=== PATIENT | male | born 1985 | race Caucasian/White ===

== ENCOUNTER 2019-08-02 07:45 | Inpatient (IN) | payer SELFPAY ==
[~2019-08-02] VITALS: Ht 182.9 cm; Wt 67.3 kg
[2019-08-02] VITALS (12 sets, daily range): BP systolic 84–127; BP diastolic 47–68
[~2019-08-02 07:45] MED LIST: INSU100C4 SQ; INSU100I13 SQ; INSU100I17 SQ; INSU100V13 SQ
[2019-08-02] MEDS ORDERED: IV NORMAL SALINE 1000ML BAG 1,000 ML IV SCH (07:51)
--- NOTE | 2019-08-02 07:56 | PHYS DOC ---
Past Medical History Past Medical History: Diabetes-Type I Past Surgical History: No Surgical History Smoking Status: Never Smoker Alcohol Use: Occasionally Drug Use: Marijuana Adult General Chief Complaint Chief Complaint: hyperglycemia HPI HPI Patient is a 34 year old male who presents via EMS with report of some mental status change and elevated blood sugar. Patient indicates that his last insulin dose was 2 days ago. Patient states that he has not taken his insulin because he has not been eating. Patient also used methamphetamine 2 days ago. Patient denies any abdominal pain, nausea or vomiting. Patient's only complaint is that his blood sugar is high.[] Review of Systems Review of Systems Constitutional: Denies fever or chills [] Respiratory: Denies cough or shortness of breath [] Cardiovascular: No additional information not addressed in HPI [] GI: Denies abdominal pain, nausea, vomiting, bloody stools or diarrhea [] Integument: Denies rash or skin lesions [] Neurologic: Denies headache, focal weakness or sensory changes [] Endocrine: Complains of polyuria and polydipsia [] All other systems were reviewed and found to be within normal limits, except as documented in this note. Current Medications Current Medications Current Medications Medications (Trade) Dose Ordered Sig/[place] Start Time Stop Time Status Last Admin Dose Admin Insulin Human Regular 100 ml @ 0 mls/hr 1X ONCE 08/02/19 08:00 08/02/19 08:01 DC 08/02/19 08:00 10.8 MLS/HR Insulin Human Regular (HumuLIN R VIAL) 15 unit 1X ONCE 08/02/19 08:00 08/02/19 08:01 DC 08/02/19 08:25 15 UNIT Sodium Chloride 1,000 ml @ 1,000 mls/hr Q1H 08/02/19 07:51 08/02/19 08:50 08/02/19 07:50 1,000 MLS/HR Allergies Allergies Allergies Coded Allergies Type Severity Reaction Last Updated Verified Sulfa (Sulfonamide Antibiotics) Allergy Intermediate Hives 10/24/15 Yes Physical Exam Physical Exam Constitutional: Well developed, well nourished, no acute distress, non-toxic appearance. [] HENT: Normocephalic, atraumatic, bilateral external ears normal, oropharynx moist, no oral exudates, nose normal. [] Eyes: PERRLA, EOMI, conjunctiva normal, no discharge. [] Neck: Normal range of motion, no tenderness, supple, no stridor. [] Cardiovascular: Tachycardic rate with regular rhythm[] Lungs & Thorax: Bilateral breath sounds clear to auscultation [] Abdomen: Bowel sounds normal, soft, no tenderness. [] Skin: Warm, dry, no erythema, no rash. [] Extremities: No tenderness, no cyanosis, no clubbing, ROM intact, no edema. [] Neurologic: Alert and oriented X 3, no focal deficits noted. [] Current Patient Data Lab Values Laboratory Tests Test 08/02/19 08:00 08/02/19 08:24 White Blood Count 37.1 x10^3/uL (4.0-11.0) H Red Blood Count 5.00 x10^6/uL (4.30-5.70) Hemoglobin 14.4 g/dL (13.0-17.5) Hematocrit 46.6 % (39.0-53.0) Mean Corpuscular Volume 93 fL (79-100) Mean Corpuscular Hemoglobin 29 pg (25-35) Mean Corpuscular Hemoglobin Concent 31 g/dL (31-37) Red Cell Distribution Width 13.1 % (11.5-14.5) Platelet Count 319 x10^3/uL (140-400) Neutrophils (%) (Auto) 77 % (31-73) H Lymphocytes (%) (Auto) 14 % (24-48) L Monocytes (%) (Auto) 8 % (0-9) Eosinophils (%) (Auto) 0 % (0-3) Basophils (%) (Auto) 1 % (0-3) Neutrophils # (Auto) 28.6 x10^3/uL (1.8-7.7) H Lymphocytes # (Auto) 5.1 x10^3/uL (1.0-4.8) H Monocytes # (Auto) 2.8 x10^3/uL (0.0-1.1) H Eosinophils # (Auto) 0.1 x10^3/uL (0.0-0.7) Basophils # (Auto) 0.3 x10^3/uL (0.0-0.2) H Platelet Estimate Pending Urine Collection Type Unknown Urine Color Yellow Urine Clarity Clear Urine pH 5.0 (<5.0-8.0) Urine Specific [place] 1.020 (1.000-1.030) Urine Protein 30 mg/dL (NEG-TRACE) Urine Glucose (UA) >=1000 mg/dL (NEG) Urine Ketones (Stick) >=80 mg/dL (NEG) Urine Blood Large (NEG) Urine Nitrite Negative (NEG) Urine Bilirubin Negative (NEG) Urine Urobilinogen Dipstick 0.2 mg/dL (0.2 mg/dL) Urine Leukocyte Esterase Negative (NEG) Urine RBC 3-5 /HPF (0-2) Urine WBC Occ /HPF (0-4) Urine Squamous Epithelial Cells Occ /LPF Urine Bacteria 0 /HPF (0-FEW) Sodium Level 125 mmol/L (136-145) L Potassium Level 5.9 mmol/L (3.5-5.1) H Chloride Level 90 mmol/L (98-107) L Carbon Dioxide Level < 5 mmol/L (21-32) *L Anion Gap 30 (6-14) H Blood Urea Nitrogen 46 mg/dL (8-26) H Creatinine 1.6 mg/dL (0.7-1.3) H Estimated GFR (Cockcroft-Gault) 49.2 BUN/Creatinine Ratio 29 (6-20) H Glucose Level 723 mg/dL (70-99) *H Calcium Level 8.6 mg/dL (8.5-10.1) Total Bilirubin 0.4 mg/dL (0.2-1.0) Aspartate Amino Transferase (AST) 23 U/L (15-37) Alanine Aminotransferase (ALT) 25 U/L (16-63) Alkaline Phosphatase 203 U/L (46-116) H Total Protein 6.5 g/dL (6.4-8.2) Albumin 2.9 g/dL (3.4-5.0) L Albumin/Globulin Ratio 0.8 (1.0-1.7) L Urine Opiates Screen Neg (NEG) Urine Methadone Screen Neg (NEG) Urine Barbiturates Neg (NEG) Urine Phencyclidine Screen Neg (NEG) Urine Amphetamine/Methamphetamine Pos (NEG) Urine Benzodiazepines Screen Neg (NEG) Urine Cocaine Screen Neg (NEG) Urine Cannabinoids Screen Neg (NEG) Urine Ethyl Alcohol Neg (NEG) Acetone Level Mod pos (NEG) O2 Saturation 98 % (92-99) Arterial Blood pH 6.77 (7.35-7.45) *L Arterial Blood pCO2 at Patient Temp < 15 mmHg (35-46) *L Arterial Blood pO2 at Patient Temp 167 mmHg (85-108) H Arterial Blood HCO3 1 mmol/L (21-28) L Arterial Blood Base Excess -33 mmol/L (-3-3) L FiO2 21 Laboratory Tests 08/02/19 08:00 Laboratory Tests 08/02/19 08:00 EKG EKG EKG demonstrates normal sinus rhythm with rate of 84.[] Radiology/Procedures Radiology/Procedures [] Course & Med Decision Making Course & Med Decision Making Pertinent Labs and Imaging studies reviewed. (See chart for details) [] Dragon Disclaimer Dragon Disclaimer This electronic medical record was generated, in whole or in part, using a voice recognition dictation system. Departure Departure Impression: Primary Impression: DKA (diabetic ketoacidoses) Additional Impressions: Hypothermia Methamphetamine abuse Disposition: ADMITTED INPATIENT Admitting Physician: DAMION Condition: GUARDED Referrals: NO PCP (PCP) Problem Qualifiers Primary Impression: DKA (diabetic ketoacidoses) Diabetes mellitus type: type 1 Diabetes mellitus complication detail: without coma Qualified Codes: E10.10 - Type 1 diabetes mellitus with ketoacidosis without coma Additional Impressions: Hypothermia Encounter type: initial encounter Qualified Codes: T68.XXXA - Hypothermia, initial encounter NARESH STEWART Jr. DO Aug 02, 2019 07:56
[2019-08-02] MEDS ORDERED: INSULIN,REGULAR 100 UNIT DRIP 100 ML IV ONE (08:00)
[2019-08-02] MEDS ORDERED: INSULIN REGULAR 100 UNIT/ML 3ML VIAL. IV ONE (08:00)
[2019-08-02 08:11] LABS: BILIRUBIN,URINE NEGATIVE (NEG); CLARITY,URINE CLEAR; COLOR,URINE YELLOW; NITRITE,URINE NEGATIVE (NEG); PROTEIN,URINE 30 mg/dL (NEG-TRACE); UROBILINOGEN,URINE 0.2 mg/dL (0.2 mg/dL)
[2019-08-02 08:12] LABS: BASO # 0.3 x10^3/uL (0.0-0.2); BASO % 1 % (0-3); EOS # 0.1 x10^3/uL (0.0-0.7); EOS % 0 % (0-3); HEMATOCRIT 46.6 % (39.0-53.0); HEMOGLOBIN 14.4 g/dL (13.0-17.5); LYMPH # 5.1 x10^3/uL (1.0-4.8); LYMPH % 14 % (24-48); MEAN CORPUSCULAR HEMOGLOBIN 29 pg (25-35); MEAN CORPUSCULAR HGB CONC 31 g/dL (31-37); MEAN CORPUSCULAR VOLUME 93 fL (79-100); MONO # 2.8 x10^3/uL (0.0-1.1); MONO % 8 % (0-9); NEUT # 28.6 x10^3/uL (1.8-7.7); NEUT % 77 % (31-73); PLATELET COUNT 319 x10^3/uL (140-400); RED CELL DISTRIBUTION WIDTH 13.1 % (11.5-14.5); WHITE BLOOD COUNT 37.1 x10^3/uL (4.0-11.0)
[2019-08-02 08:26] LABS: BASE EXCESS ABG -33 mmol/L (-3-3); HCO3 ABG 1 mmol/L (21-28); PO2 ABG 167 mmHg (85-108); SAT O2 ABG 98 % (92-99)
[2019-08-02 08:27] LABS: BARBITURATES NEG (NEG); BENZODIAZEPINES NEG (NEG); CANNABINOIDS NEG (NEG); COCAINE NEG (NEG); METHADONE NEG (NEG); OPIATES NEG (NEG); PHENCYCLIDINE NEG (NEG)
[2019-08-02 08:28] LABS: FIO2 ABG 21; PCO2 ABG < 15 mmHg (35-46)
[2019-08-02 08:28] LABS: AMPHETAMINE/METHAMPHETAMINE POS (NEG)
[2019-08-02 08:29] LABS: ALBUMIN 2.9 g/dL (3.4-5.0); ALBUMIN/GLOBULIN RATIO 0.8 (1.0-1.7); ALK PHOS 203 U/L (46-116); ALT (SGPT) 25 U/L (16-63); AST (SGOT) 23 U/L (15-37); BLOOD UREA NITROGEN 46 mg/dL (8-26); BUN/CREATININE RATIO 29 (6-20); CALCIUM 8.6 mg/dL (8.5-10.1); CHLORIDE 90 mmol/L (98-107); CREATININE 1.6 mg/dL (0.7-1.3); GFR 49.2; POTASSIUM 5.9 mmol/L (3.5-5.1); SODIUM 125 mmol/L (136-145); TOTAL BILIRUBIN 0.4 mg/dL (0.2-1.0); TOTAL PROTEIN 6.5 g/dL (6.4-8.2)
[2019-08-02 08:30] LABS: BACTERIA,URINE 0 /HPF (0-FEW); SQUAMOUS EPITHELIAL CELL,UR OCC /LPF; WBC,URINE OCC /HPF (0-4)
--- NOTE | 2019-08-02 08:31 | EKG ---
[facility] [address] [place] [address] Test Date: 2019-08-02 Test Time: 08:15:46 Pat Name: CHIKI GIBSON Department: Room: Gender: M Forging Machine Operator: : [id number] Requested By: NARESH STEWART Order Number: [id number] Reading MD: Measurements Intervals [place] Rate: 84 P: 90 LA: 200 QRS: 64 QRSD: 242 T: -18 QT: 398 QTc: 474 Interpretive Statements SINUS RHYTHM COMPLEX(ES) WITH ABERRANT INTRAVENTRICULAR CONDUCTION NON SPECIFIC INTRAVENTRICULAR BLOCK QRS(T) CONTOUR ABNORMALITY CONSIDER ANTEROLATERAL MYOCARDIAL DAMAGE CONSISTENT WITH INFERIOR INFARCT AGE UNDETERMINED ABNORMAL ECG RI6.01 No previous ECG available for comparison
[2019-08-02 08:33] LABS: ANION GAP 30 (6-14)
[2019-08-02 08:38] LABS: CARBON DIOXIDE < 5 mmol/L (21-32); GLUCOSE 723 mg/dL (70-99)
[2019-08-02] MEDS ORDERED: IV NORMAL SALINE 1000ML BAG 1,000 ML IV ONE (09:00)
[2019-08-02] MEDS ORDERED: IV DEXTROSE 5% 250 ML BAG. IV PRN (09:00)
[2019-08-02] MEDS ORDERED: INSULIN REGULAR VIAL 100 UNIT in IV NORMAL SALINE 100ML 100 ML IV PRN (09:00)
[2019-08-02] MEDS ORDERED: DEXTROSE 50% 25 GM / 50ML DISP.SYRIN. IV PRN (09:00)
--- NOTE | 2019-08-02 09:01 | PDOC1 ---
History and Physical Date of Admission Date of Admission DATE: 08/02/19 TIME: 08:54 Identification/Chief Complaint Chief Complaint Confusion Source Source: Patient History of Present Illness History of Present Illness Mr Camacho is a 34yo M w/ PMHx DM1 who presents to ED confused, has not taken insulin for 2 days and has been abusing methamphetamine. Found with glucose 723, BUN 46, Cr 1.6, K 5.9, Na 125, WBC 37.1. ABG pH 6.77, PCO2 15, PO2 167. Body temperature per EMS was 89F. Was placed on air warmer blanket. RR 30 /min. His roommate notes he does not check his blood glucose at home, does have supplies. Does take lantus and has lantus and lispo insulin pens at home. He notes this is only the second time he has been hospitalized for DKA. EKG demonstrates normal sinus rhythm with rate of 84. UDS positive for amphetamines and ketones. Admitted to ICU on insulin GTT Past Medical History Cardiovascular: No pertinent hx Pulmonary: No pertinent hx Musculoskeletal: low back pain Renal/: No pertinent hx Endocrine: Diabetes Past Surgical History Past Surgical History: No pertinent history Family History Family History: No Significant, Hypertension, Family History Unknown Social History Smoke: <1 pack per day ALCOHOL: occassional Drugs: Marijuana, Crystal meth Current Problem List Problem List Problems Medical Problems: (1) DKA (diabetic ketoacidoses) Status: Acute (2) Hypothermia Status: Acute (3) Methamphetamine abuse Status: Acute Current Medications Current Medications Current Medications Sodium Chloride 1,000 ml @ 1,000 mls/hr Q1H IV Last administered on 08/02/19at 07:50; Start 08/02/19 at 07:51; Stop 08/02/19 at 08:50; Status DC Insulin Human Regular (HumuLIN R VIAL) 15 unit 1X ONCE IV Last administered on 08/02/19at 08:25; Start 08/02/19 at 08:00; Stop 08/02/19 at 08:01; Status DC Insulin Human Regular 100 ml @ 0 mls/hr 1X ONCE IV Last administered on 08/02/19at 08:00; Start 08/02/19 at 08:00; Stop 08/02/19 at 08:01; Status DC Sodium Chloride 1,000 ml @ 1,000 mls/hr 1X ONCE IV ; Start 08/02/19 at 09:00; Stop 08/02/19 at 09:59 Active Scripts Active Reported Levemir (Insulin Detemir) 100 Unit/1 Ml Vial 20 Unit SQ BID Novolog (Insulin Aspart) 100 Unit/1 Ml Cartridge 100 Unit SQ TIDAC Allergies Allergies: Coded Allergies: Sulfa (Sulfonamide Antibiotics) (Verified Allergy, Intermediate, Hives, 10/24/15) ROS General: YES: Fatigue, Malaise; No: Chills, Night Sweats, Appetite, Other PSYCHOLOGICAL ROS: YES: Disorientation; No: Anxiety, Behavioral Disorder, Concentration difficultie, Decreased libido, Depression, Hallucinations, Hostility, Irritablity, Memory difficulties, Mood Swings, Obsessive thoughts, Physical abuse, Sexual abuse, Sleep disturbances, Suicidal ideation, Other Eyes: Yes Blurry vision, Yes Decreased vision; No Double vision, No Dry eyes, No Excessive tearing, No Eye Pain, No Itchy Eyes, No Loss of vision, No Photophobia, No Scotomata, No Uses contacts, No Uses glasses, No Other HEENT: No: Heacaches, Visual Changes, Hearing change, Nasal congestion, Nasal discharge, Oral lesions, Sinus pain, Sore Throat, Epistaxis, Sneezing, Snoring, Tinnitus, Vertigo, Vocal changes, Other ALLERGY AND IMMUNOLOGY: No: Hives, Insect Bite Sensitivity, Itchy/Watery Eyes, Nasal Congestion, Post Nasal Drip, Seasonal Allergies, Other Hematological and Lymphatic: No: Bleeding Problems, Blood Clots, Blood Transfusions, Brusing, Night Sweats, Pallor, Swollen Lymph Nodes, Other ENDOCRINE: No: Breast Changes, Galactorrhea, Hair Pattern Changes, Hot Flashes, Malaise/lethargy, Mood Swings, Palpitations, Polydipsia/polyuria, Skin Changes, Temperature Intolerance, Unexpected Weight Changes, Other Breast: No New/Changing Breast Lumps, No Nipple changes, No Nipple discharge, No Other Respiratory: No: Cough, Hemoptysis, Orthopnea, Pleuritic Pain, Shortness of breath, SOB with excertion, Sputum Changes, Stridor, Tachypnea, Wheezing, Other Cardiovascular: No Chest Pain, No Palpitations, No Orthopnea, No Paroxysmal Noc. Dyspnea, No Edema, No Lt Headedness, No Other Gastrointestinal: Yes Nausea; No Vomiting, No Abdominal Pain, No Diarrhea, No Constipation, No Melena, No Hematochezia, No Other Genitourinary: YES Frequency; No Dysuria, No Incontinence, No Hematuria, No Retention, No Discharge, No Urgency, No Pain, No Flank Pain, No Other, No , No , No , No , No , No , No Musculoskeletal: Yes Muscular Weakness; No Gait Disturbance, No Joint Pain, No Joint Stiffness, No Joint Swelling, No Muscle Pain, No Pain In:, No Swelling In:, No Other Neurological: Yes Confusion, Yes Gait Disturbance; No Behavorial Changes, No Bowel/Bladder ControlChng, No Dizziness, No Headaches, No Impaired Coord/balance, No Memory Loss, No Numbness/Tingling, No Seizures, No Speech Problems, No Tremors, No Visual Changes, No Weakness, No Other Skin: No Dry Skin, No Eczema, No Hair Changes, No Lumps, No Mole Changes, No Mottling, No Nail Changes, No Pruritus, No Rash, No Skin Lesion Changes, No Other, No Acne Physical Exam General: Alert, Cooperative, moderate distress HEENT: Atraumatic, PERRLA, EOMI, Mucous membr. moist/pink, Other (Extremely poor dentition, multiple dental caries) Lungs: Clear to auscultation, Normal air movement Heart: S1S2, RRR, no thrills, no rubs, no gallops, no murmurs Abdomen: Normal bowel sounds, Soft, No tenderness, No hepatosplenomegaly, No masses Rectal Exam: not examined Extremities: No clubbing, No cyanosis, No edema, Normal pulses, No tendernes s/swelling Skin: No rashes, No breakdown, No significant lesion Neuro: Strength at 5/5 X4 ext, Normal tone, Sensation intact, Cranial nerves 3- 12 NL, Reflexes 2+ Psych/Mental Status: Other (Confused) Labs Labs Laboratory Tests Test 08/02/19 08:00 08/02/19 08:24 White Blood Count 37.1 x10^3/uL (4.0-11.0) Red Blood Count 5.00 x10^6/uL (4.30-5.70) Hemoglobin 14.4 g/dL (13.0-17.5) Hematocrit 46.6 % (39.0-53.0) Mean Corpuscular Volume 93 fL (79-100) Mean Corpuscular Hemoglobin 29 pg (25-35) Mean Corpuscular Hemoglobin Concent 31 g/dL (31-37) Red Cell Distribution Width 13.1 % (11.5-14.5) Platelet Count 319 x10^3/uL (140-400) Neutrophils (%) (Auto) 77 % (31-73) Lymphocytes (%) (Auto) 14 % (24-48) Monocytes (%) (Auto) 8 % (0-9) Eosinophils (%) (Auto) 0 % (0-3) Basophils (%) (Auto) 1 % (0-3) Neutrophils # (Auto) 28.6 x10^3/uL (1.8-7.7) Lymphocytes # (Auto) 5.1 x10^3/uL (1.0-4.8) Monocytes # (Auto) 2.8 x10^3/uL (0.0-1.1) Eosinophils # (Auto) 0.1 x10^3/uL (0.0-0.7) Basophils # (Auto) 0.3 x10^3/uL (0.0-0.2) Urine Collection Type Unknown Urine Color Yellow Urine Clarity Clear Urine pH 5.0 (<5.0-8.0) Urine Specific [place] 1.020 (1.000-1.030) Urine Protein 30 mg/dL (NEG-TRACE) Urine Glucose (UA) >=1000 mg/dL (NEG) Urine Ketones (Stick) >=80 mg/dL (NEG) Urine Blood Large (NEG) Urine Nitrite Negative (NEG) Urine Bilirubin Negative (NEG) Urine Urobilinogen Dipstick 0.2 mg/dL (0.2 mg/dL) Urine Leukocyte Esterase Negative (NEG) Urine RBC 3-5 /HPF (0-2) Urine WBC Occ /HPF (0-4) Urine Squamous Epithelial Cells Occ /LPF Urine Bacteria 0 /HPF (0-FEW) Sodium Level 125 mmol/L (136-145) Potassium Level 5.9 mmol/L (3.5-5.1) Chloride Level 90 mmol/L (98-107) Carbon Dioxide Level < 5 mmol/L (21-32) Anion Gap 30 (6-14) Blood Urea Nitrogen 46 mg/dL (8-26) Creatinine 1.6 mg/dL (0.7-1.3) Estimated GFR (Cockcroft-Gault) 49.2 BUN/Creatinine Ratio 29 (6-20) Glucose Level 723 mg/dL (70-99) Calcium Level 8.6 mg/dL (8.5-10.1) Total Bilirubin 0.4 mg/dL (0.2-1.0) Aspartate Amino Transf (AST/SGOT) 23 U/L (15-37) Alanine Aminotransferase (ALT/SGPT) 25 U/L (16-63) Alkaline Phosphatase 203 U/L (46-116) Total Protein 6.5 g/dL (6.4-8.2) Albumin 2.9 g/dL (3.4-5.0) Albumin/Globulin Ratio 0.8 (1.0-1.7) Urine Opiates Screen Neg (NEG) Urine Methadone Screen Neg (NEG) Urine Barbiturates Neg (NEG) Urine Phencyclidine Screen Neg (NEG) Urine Amphetamine/Methamphetamine Pos (NEG) Urine Benzodiazepines Screen Neg (NEG) Urine Cocaine Screen Neg (NEG) Urine Cannabinoids Screen Neg (NEG) Urine Ethyl Alcohol Neg (NEG) Acetone Level Mod pos (NEG) O2 Saturation 98 % (92-99) Arterial Blood pH 6.77 (7.35-7.45) Arterial Blood pCO2 at Patient Temp < 15 mmHg (35-46) Arterial Blood pO2 at Patient Temp 167 mmHg (85-108) Arterial Blood HCO3 1 mmol/L (21-28) Arterial Blood Base Excess -33 mmol/L (-3-3) FiO2 21 Laboratory Tests Test 08/02/19 08:00 08/02/19 08:24 White Blood Count 37.1 x10^3/uL (4.0-11.0) Red Blood Count 5.00 x10^6/uL (4.30-5.70) Hemoglobin 14.4 g/dL (13.0-17.5) Hematocrit 46.6 % (39.0-53.0) Mean Corpuscular Volume 93 fL (79-100) Mean Corpuscular Hemoglobin 29 pg (25-35) Mean Corpuscular Hemoglobin Concent 31 g/dL (31-37) Red Cell Distribution Width 13.1 % (11.5-14.5) Platelet Count 319 x10^3/uL (140-400) Neutrophils (%) (Auto) 77 % (31-73) Lymphocytes (%) (Auto) 14 % (24-48) Monocytes (%) (Auto) 8 % (0-9) Eosinophils (%) (Auto) 0 % (0-3) Basophils (%) (Auto) 1 % (0-3) Neutrophils # (Auto) 28.6 x10^3/uL (1.8-7.7) Lymphocytes # (Auto) 5.1 x10^3/uL (1.0-4.8) Monocytes # (Auto) 2.8 x10^3/uL (0.0-1.1) Eosinophils # (Auto) 0.1 x10^3/uL (0.0-0.7) Basophils # (Auto) 0.3 x10^3/uL (0.0-0.2) Urine Collection Type Unknown Urine Color Yellow Urine Clarity Clear Urine pH 5.0 (<5.0-8.0) Urine Specific [place] 1.020 (1.000-1.030) Urine Protein 30 mg/dL (NEG-TRACE) Urine Glucose (UA) >=1000 mg/dL (NEG) Urine Ketones (Stick) >=80 mg/dL (NEG) Urine Blood Large (NEG) Urine Nitrite Negative (NEG) Urine Bilirubin Negative (NEG) Urine Urobilinogen Dipstick 0.2 mg/dL (0.2 mg/dL) Urine Leukocyte Esterase Negative (NEG) Urine RBC 3-5 /HPF (0-2) Urine WBC Occ /HPF (0-4) Urine Squamous Epithelial Cells Occ /LPF Urine Bacteria 0 /HPF (0-FEW) Sodium Level 125 mmol/L (136-145) Potassium Level 5.9 mmol/L (3.5-5.1) Chloride Level 90 mmol/L (98-107) Carbon Dioxide Level < 5 mmol/L (21-32) Anion Gap 30 (6-14) Blood Urea Nitrogen 46 mg/dL (8-26) Creatinine 1.6 mg/dL (0.7-1.3) Estimated GFR (Cockcroft-Gault) 49.2 BUN/Creatinine Ratio 29 (6-20) Glucose Level 723 mg/dL (70-99) Calcium Level 8.6 mg/dL (8.5-10.1) Total Bilirubin 0.4 mg/dL (0.2-1.0) Aspartate Amino Transf (AST/SGOT) 23 U/L (15-37) Alanine Aminotransferase (ALT/SGPT) 25 U/L (16-63) Alkaline Phosphatase 203 U/L (46-116) Total Protein 6.5 g/dL (6.4-8.2) Albumin 2.9 g/dL (3.4-5.0) Albumin/Globulin Ratio 0.8 (1.0-1.7) Urine Opiates Screen Neg (NEG) Urine Methadone Screen Neg (NEG) Urine Barbiturates Neg (NEG) Urine Phencyclidine Screen Neg (NEG) Urine Amphetamine/Methamphetamine Pos (NEG) Urine Benzodiazepines Screen Neg (NEG) Urine Cocaine Screen Neg (NEG) Urine Cannabinoids Screen Neg (NEG) Urine Ethyl Alcohol Neg (NEG) Acetone Level Mod pos (NEG) O2 Saturation 98 % (92-99) Arterial Blood pH 6.77 (7.35-7.45) Arterial Blood pCO2 at Patient Temp < 15 mmHg (35-46) Arterial Blood pO2 at Patient Temp 167 mmHg (85-108) Arterial Blood HCO3 1 mmol/L (21-28) Arterial Blood Base Excess -33 mmol/L (-3-3) FiO2 21 VTE Prophylaxis Ordered VTE Prophylaxis Devices: No VTE Pharmacological Prophylaxi: Yes Assessment/Plan Assessment/Plan A/P: DKA (diabetic ketoacidoses) - insulin GTT, q6hr labs, phos, mag. Glucose 723 MARQUIS - likely vasomotor nephropathy due to DKA. BUN 46, Cr 1.6 Hyperkalemia - K 5.9, will give IVF Hyponatremia - Na 125, likely 2/2 DKA, will replace, trend glucose Leukocytosis - WBC 37.1, likely DKA related. No clear infectious source Acute metabolic acidosis - ABG pH 6.77, PCO2 15, PO2 167, DKA related Acute encephalopathy - likely amphetamine and DKA related, metabolic, will follow up Hypothermia - meets SIRS criteria, almost certainly 2/2 DKA, will give fluids Methamphetamine abuse - counseled on cessation FEN - NPO PPX - Lovenox FULL CODE Dispo - ICU for severe DKA cc time 45 minutes JERONIMO BOWENS MD Aug 02, 2019 09:01
[2019-08-02] MEDS ORDERED: ONDANSETRON PF 4 MG/2 ML VIAL. IV PRN (09:15)
[2019-08-02] MEDS: IV NORMAL SALINE 1000ML BAG 1,000 ML IV SCH ×3 (09:31→17:17)
[2019-08-02 09:32] LABS: MAGNESIUM 2.3 mg/dL (1.8-2.4)
[2019-08-02 10:26] LABS: % BANDS 14 % (0-9); % LYMPHS 18 % (24-48); % MONOS 5 % (0-10); % MYELOS 1 % (0-0); % SEGS 62 % (35-66); PLT ESTIMATE ADEQUATE (ADEQUATE)
--- NOTE | 2019-08-02 10:30 | NUR ---
Pt admitted to ICU room 109. Pt arrived to unit via bed accompanied by two ED RNs. Pt drowsy and forgetful upon admission, states his vision is blurry. Insulin drip running from ED at 14.3 units/hr and NS running at 250 mls/hr with fluid warmer. Prateek hugger placed on patient. Axillary temp at 96.7. Roommate at bedside. Will continue to monitor.
[2019-08-02 14:09] LABS: ALBUMIN 2.6 g/dL (3.4-5.0); CREATININE 1.2 mg/dL (0.7-1.3); GFR 68.5; MAGNESIUM 1.6 mg/dL (1.8-2.4); PHOSPHORUS 2.3 mg/dL (2.6-4.7); POTASSIUM 3.8 mmol/L (3.5-5.1)
[2019-08-02] MEDS ORDERED: MAGNESIUM SULFATE 4GM 100 ML IV ONE (15:00)
[2019-08-02] MEDS: POTASSIUM PHOSPHATE DIBASIC 10 MMOL in IV NORMAL SALINE 100ML 100 ML IV SCH ×2 (15:23→17:16)
[2019-08-02] MEDS: IV DEXTROSE 5% - 0.9 % NACL 1,000 ML IV SCH ×2 (18:35→22:51)
[2019-08-02 20:52] LABS: CALCIUM 7.5 mg/dL (8.5-10.1); CREATININE 1.1 mg/dL (0.7-1.3); GFR 75.7; MAGNESIUM 2.4 mg/dL (1.8-2.4); PHOSPHORUS 3.2 mg/dL (2.6-4.7); POTASSIUM 4.5 mmol/L (3.5-5.1)
[2019-08-03] VITALS (16 sets, daily range): BP systolic 91–121; BP diastolic 52–77
[2019-08-03 00:52] LABS: CALCIUM 7.6 mg/dL (8.5-10.1); CREATININE 1.1 mg/dL (0.7-1.3); GFR 75.7; MAGNESIUM 2.1 mg/dL (1.8-2.4); PHOSPHORUS 2.2 mg/dL (2.6-4.7); POTASSIUM 3.5 mmol/L (3.5-5.1)
[2019-08-03] MEDS: IV DEXTROSE 5% - 0.9 % NACL 1,000 ML IV SCH ×3 (03:09→13:29)
--- NOTE | 2019-08-03 03:38 | NUR ---
Notified Dr Xavier Anion gap now 13, pt on insulin drip. Provider said to continue insulin drip and titrate per protocol, she will reassess in the morning.
[2019-08-03 04:59] LABS: BASO # 0.3 x10^3/uL (0.0-0.2); BASO % 1 % (0-3); EOS % 0 % (0-3); HEMATOCRIT 36.4 % (39.0-53.0); HEMOGLOBIN 12.5 g/dL (13.0-17.5); LYMPH # 1.4 x10^3/uL (1.0-4.8); LYMPH % 7 % (24-48); MEAN CORPUSCULAR HEMOGLOBIN 29 pg (25-35); MEAN CORPUSCULAR HGB CONC 34 g/dL (31-37); MEAN CORPUSCULAR VOLUME 84 fL (79-100); MONO # 1.4 x10^3/uL (0.0-1.1); MONO % 7 % (0-9); NEUT # 17.6 x10^3/uL (1.8-7.7); NEUT % 85 % (31-73); PLATELET COUNT 232 x10^3/uL (140-400); RED BLOOD COUNT 4.32 x10^6/uL (4.30-5.70); RED CELL DISTRIBUTION WIDTH 12.8 % (11.5-14.5); WHITE BLOOD COUNT 20.6 x10^3/uL (4.0-11.0)
--- NOTE | 2019-08-03 13:37 | PDOC ---
[employer] PROGRESS NOTE Chief Complaint Chief Complaint DKA History of Present Illness History of Present Illness [id number] Patient seen and examined in ICU Chart reviewed Discussed with RN Vitals/I&O Vitals/I&O: Vital Signs Date Time Temp Pulse Resp B/P (MAP) Pulse Ox O2 Delivery O2 Flow Rate FiO2 08/03/19 13:00 98.5 97 12 91/52 (65) 98 Room Air 98.5 I & O 0 08/02/19 08/02/19 08/03/19 15:00 23:00 07:00 Intake Total 2019.9 ml 1000 ml 1430 ml Output Total 1700 ml 2125 ml 685 ml Balance 319.9 ml -1125 ml 745 ml Physical Exam General: Alert, Cooperative, moderate distress Lungs: Clear Abdomen: Normal bowel sounds, Soft, No tenderness, No hepatosplenomegaly, No masses Extremities: No clubbing, No cyanosis, No edema, Normal pulses, No tenderne ss/swelling Skin: No rashes, No breakdown, No significant lesion Labs Labs: Laboratory Tests Test 08/02/19 13:40 08/02/19 14:10 08/02/19 15:14 08/02/19 16:17 Sodium Level 136 mmol/L (136-145) Potassium Level 3.8 mmol/L (3.5-5.1) Chloride Level 105 mmol/L (98-107) Carbon Dioxide Level 5 mmol/L (21-32) Anion Gap 26 (6-14) Blood Urea Nitrogen 42 mg/dL (8-26) Creatinine 1.2 mg/dL (0.7-1.3) Estimated GFR (Cockcroft-Gault) 68.5 Glucose Level 265 mg/dL (70-99) Lactic Acid Level 1.2 mmol/L (0.4-2.0) Calcium Level 8.0 mg/dL (8.5-10.1) Phosphorus Level 2.3 mg/dL (2.6-4.7) Magnesium Level 1.6 mg/dL (1.8-2.4) Albumin 2.6 g/dL (3.4-5.0) Glucose (Fingerstick) 207 mg/dL (70-99) 150 mg/dL (70-99) 118 mg/dL (70-99) Test 08/02/19 17:19 08/02/19 18:23 08/02/19 19:26 08/02/19 20:05 Glucose (Fingerstick) 114 mg/dL (70-99) 107 mg/dL (70-99) 128 mg/dL (70-99) Sodium Level 139 mmol/L (136-145) Potassium Level 4.5 mmol/L (3.5-5.1) Chloride Level 108 mmol/L (98-107) Carbon Dioxide Level 12 mmol/L (21-32) Anion Gap 19 (6-14) Blood Urea Nitrogen 30 mg/dL (8-26) Creatinine 1.1 mg/dL (0.7-1.3) Estimated GFR (Cockcroft-Gault) 75.7 Glucose Level 178 mg/dL (70-99) Calcium Level 7.5 mg/dL (8.5-10.1) Phosphorus Level 3.2 mg/dL (2.6-4.7) Magnesium Level 2.4 mg/dL (1.8-2.4) Test 08/02/19 20:22 08/02/19 21:23 08/02/19 22:30 08/02/19 23:21 Glucose (Fingerstick) 192 mg/dL (70-99) 248 mg/dL (70-99) 231 mg/dL (70-99) 254 mg/dL (70-99) Test 08/03/19 00:22 08/03/19 00:31 08/03/19 00:34 08/03/19 01:28 White Blood Count 20.6 x10^3/uL (4.0-11.0) Red Blood Count 4.32 x10^6/uL (4.30-5.70) Hemoglobin 12.5 g/dL (13.0-17.5) Hematocrit 36.4 % (39.0-53.0) Mean Corpuscular Volume 84 fL (79-100) Mean Corpuscular Hemoglobin 29 pg (25-35) Mean Corpuscular Hemoglobin Concent 34 g/dL (31-37) Red Cell Distribution Width 12.8 % (11.5-14.5) Platelet Count 232 x10^3/uL (140-400) Neutrophils (%) (Auto) 85 % (31-73) Lymphocytes (%) (Auto) 7 % (24-48) Monocytes (%) (Auto) 7 % (0-9) Eosinophils (%) (Auto) 0 % (0-3) Basophils (%) (Auto) 1 % (0-3) Neutrophils # (Auto) 17.6 x10^3/uL (1.8-7.7) Lymphocytes # (Auto) 1.4 x10^3/uL (1.0-4.8) Monocytes # (Auto) 1.4 x10^3/uL (0.0-1.1) Eosinophils # (Auto) 0.0 x10^3/uL (0.0-0.7) Basophils # (Auto) 0.3 x10^3/uL (0.0-0.2) Sodium Level 141 mmol/L (136-145) Potassium Level 3.5 mmol/L (3.5-5.1) Chloride Level 111 mmol/L (98-107) Carbon Dioxide Level 17 mmol/L (21-32) Anion Gap 13 (6-14) Blood Urea Nitrogen 26 mg/dL (8-26) Creatinine 1.1 mg/dL (0.7-1.3) Estimated GFR (Cockcroft-Gault) 75.7 Glucose Level 224 mg/dL (70-99) Calcium Level 7.6 mg/dL (8.5-10.1) Phosphorus Level 2.2 mg/dL (2.6-4.7) Magnesium Level 2.1 mg/dL (1.8-2.4) Glucose (Fingerstick) 215 mg/dL (70-99) 205 mg/dL (70-99) 180 mg/dL (70-99) Test 08/03/19 03:36 08/03/19 04:37 08/03/19 05:30 08/03/19 06:26 Glucose (Fingerstick) 119 mg/dL (70-99) 108 mg/dL (70-99) 117 mg/dL (70-99) 123 mg/dL (70-99) Test 08/03/19 07:40 08/03/19 08:43 08/03/19 09:44 08/03/19 10:42 Glucose (Fingerstick) 114 mg/dL (70-99) 127 mg/dL (70-99) 162 mg/dL (70-99) 180 mg/dL (70-99) Test 08/03/19 11:53 08/03/19 12:56 Glucose (Fingerstick) 172 mg/dL (70-99) 123 mg/dL (70-99) Assessment and Plan Assessmemt and Plan Problems Medical Problems: (1) DKA (diabetic ketoacidoses) Status: Acute (2) Hypothermia Status: Acute (3) Methamphetamine abuse Status: Acute DKA DC insulin drip and changed to subcutaneous insulin Transferred to medical floor [facility] - likely vasomotor nephropathy due to DKA. BUN 46, Cr 1.6 Hyperkalemia - K 5.9, will give IVF Hyponatremia - Na 125, likely 2/2 DKA, will replace, trend glucose Leukocytosis - WBC 37.1, likely DKA related. No clear infectious source Acute metabolic acidosis - ABG pH 6.77, PCO2 15, PO2 167, DKA related Acute encephalopathy - likely amphetamine and DKA related, metabolic, will follow up Hypothermia - meets SIRS criteria, almost certainly 2/2 DKA, will give fluids Methamphetamine abuse - counseled on cessation Comment Review of Relevant I have reviewed the following items jaleesa (where applicable) has been applied. Medications: Current Medications Medications (Trade) Dose Ordered Sig/Beverly Route PRN Reason Start Time Stop Time Status Last Admin Dose Admin Magnesium Sulfate 100 ml @ 25 mls/hr 1X ONCE IV 08/02/19 15:00 08/02/19 18:59 DC 08/02/19 15:18 Potassium Phosphate 10 mmol/ Sodium Chloride 103.3333 ml @ 51.667 m... Q2H IV 08/02/19 15:00 08/02/19 18:59 DC 08/02/19 17:16 Dextrose/Sodium Chloride 1,000 ml @ 250 mls/hr Q4H IV 08/02/19 18:30 08/03/19 13:29 HERNAN CLEMONS III DO Aug 03, 2019 13:37
[2019-08-03] MEDS: INSULIN LISPRO 300 UNITS/3 ML VIAL. SQ SCH ×2 (14:13→17:11)
--- NOTE | 2019-08-03 15:30 | NUR ---
Pt transferred from room 109 to room 565. Pt left unit via wheelchair.
[2019-08-03] MEDS ORDERED: INSULIN GLARGINE SYRINGE. SQ SCH (21:00)
[2019-08-04 03:00] VITALS: BP 116/71
[2019-08-04 07:00] VITALS: BP 113/79
[2019-08-04] MEDS: INSULIN LISPRO 300 UNITS/3 ML VIAL. SQ SCH ×3 (08:10→17:13)
--- NOTE | 2019-08-04 09:58 | NUR ---
FRANCIA following. Discussed with RN, PAT team coming to see pt today. RN anticipates possible discharge home today with self care. FRANCIA will continue to follow. Addendum: 08/04/19 at 1338 by PHILIPPE FELDMAN Pt was provided resources for [facility], [facility]. Sydni with PAT team advised pt is going to go home with his grandparents. RN notified.
--- NOTE | 2019-08-04 10:24 | PDOC ---
PROGRESS NOTES Chief Complaint Chief Complaint DISCHARGE DX diabetic ketoacidosis RESOLVED METH ABUSE History of Present Illness History of Present Illness [id number] Patient seen and examined Chart reviewed Discussed with RN D/C PLANNING 28 MIN Vitals Vitals Vital Signs Date Time Temp Pulse Resp B/P (MAP) Pulse Ox O2 Delivery O2 Flow Rate FiO2 08/04/19 08:00 Room Air 08/04/19 07:00 97.9 83 17 113/79 (90) 97 97.9 Physical Exam General: Alert, Oriented X3, Cooperative, No acute distress Heart: Regular rate, Normal S1, Normal S2 Lungs: Clear Abdomen: Normal bowel sounds, Soft, No tenderness, No hepatosplenomegaly, No masses Extremities: No clubbing, No cyanosis, No edema, Normal pulses, No tenderness/swelling Skin: No rashes, No breakdown, No significant lesion Labs LABS Laboratory Tests Test 08/03/19 10:42 08/03/19 11:53 08/03/19 12:56 08/03/19 13:59 Glucose (Fingerstick) 180 mg/dL (70-99) 172 mg/dL (70-99) 123 mg/dL (70-99) 123 mg/dL (70-99) Test 08/03/19 16:17 08/03/19 20:51 Glucose (Fingerstick) 171 mg/dL (70-99) 99 mg/dL (70-99) Assessment and Plan Assessmemt and Plan Problems Medical Problems: (1) DKA (diabetic ketoacidoses) Status: Acute (2) Hypothermia Status: Acute (3) Methamphetamine abuse Status: Acute Comment Review of Relevant I have reviewed the following items jaleesa (where applicable) has been applied. Labs Laboratory Tests Test 08/02/19 11:00 08/02/19 11:59 08/02/19 13:07 08/02/19 13:40 Glucose (Fingerstick) 399 mg/dL (70-99) 311 mg/dL (70-99) 300 mg/dL (70-99) Sodium Level 136 mmol/L (136-145) Potassium Level 3.8 mmol/L (3.5-5.1) Chloride Level 105 mmol/L (98-107) Carbon Dioxide Level 5 mmol/L (21-32) Anion Gap 26 (6-14) Blood Urea Nitrogen 42 mg/dL (8-26) Creatinine 1.2 mg/dL (0.7-1.3) Estimated GFR (Cockcroft-Gault) 68.5 Glucose Level 265 mg/dL (70-99) Lactic Acid Level 1.2 mmol/L (0.4-2.0) Calcium Level 8.0 mg/dL (8.5-10.1) Phosphorus Level 2.3 mg/dL (2.6-4.7) Magnesium Level 1.6 mg/dL (1.8-2.4) Albumin 2.6 g/dL (3.4-5.0) Test 08/02/19 14:10 08/02/19 15:14 08/02/19 16:17 08/02/19 17:19 Glucose (Fingerstick) 207 mg/dL (70-99) 150 mg/dL (70-99) 118 mg/dL (70-99) 114 mg/dL (70-99) Test 08/02/19 18:23 08/02/19 19:26 08/02/19 20:05 08/02/19 20:22 Glucose (Fingerstick) 107 mg/dL (70-99) 128 mg/dL (70-99) 192 mg/dL (70-99) Sodium Level 139 mmol/L (136-145) Potassium Level 4.5 mmol/L (3.5-5.1) Chloride Level 108 mmol/L (98-107) Carbon Dioxide Level 12 mmol/L (21-32) Anion Gap 19 (6-14) Blood Urea Nitrogen 30 mg/dL (8-26) Creatinine 1.1 mg/dL (0.7-1.3) Estimated GFR (Cockcroft-Gault) 75.7 Glucose Level 178 mg/dL (70-99) Calcium Level 7.5 mg/dL (8.5-10.1) Phosphorus Level 3.2 mg/dL (2.6-4.7) Magnesium Level 2.4 mg/dL (1.8-2.4) Test 08/02/19 21:23 08/02/19 22:30 08/02/19 23:21 08/03/19 00:22 Glucose (Fingerstick) 248 mg/dL (70-99) 231 mg/dL (70-99) 254 mg/dL (70-99) White Blood Count 20.6 x10^3/uL (4.0-11.0) Red Blood Count 4.32 x10^6/uL (4.30-5.70) Hemoglobin 12.5 g/dL (13.0-17.5) Hematocrit 36.4 % (39.0-53.0) Mean Corpuscular Volume 84 fL (79-100) Mean Corpuscular Hemoglobin 29 pg (25-35) Mean Corpuscular Hemoglobin Concent 34 g/dL (31-37) Red Cell Distribution Width 12.8 % (11.5-14.5) Platelet Count 232 x10^3/uL (140-400) Neutrophils (%) (Auto) 85 % (31-73) Lymphocytes (%) (Auto) 7 % (24-48) Monocytes (%) (Auto) 7 % (0-9) Eosinophils (%) (Auto) 0 % (0-3) Basophils (%) (Auto) 1 % (0-3) Neutrophils # (Auto) 17.6 x10^3/uL (1.8-7.7) Lymphocytes # (Auto) 1.4 x10^3/uL (1.0-4.8) Monocytes # (Auto) 1.4 x10^3/uL (0.0-1.1) Eosinophils # (Auto) 0.0 x10^3/uL (0.0-0.7) Basophils # (Auto) 0.3 x10^3/uL (0.0-0.2) Sodium Level 141 mmol/L (136-145) Potassium Level 3.5 mmol/L (3.5-5.1) Chloride Level 111 mmol/L (98-107) Carbon Dioxide Level 17 mmol/L (21-32) Anion Gap 13 (6-14) Blood Urea Nitrogen 26 mg/dL (8-26) Creatinine 1.1 mg/dL (0.7-1.3) Estimated GFR (Cockcroft-Gault) 75.7 Glucose Level 224 mg/dL (70-99) Calcium Level 7.6 mg/dL (8.5-10.1) Phosphorus Level 2.2 mg/dL (2.6-4.7) Magnesium Level 2.1 mg/dL (1.8-2.4) Test 3/17/20 00:31 08/03/19 00:34 08/03/19 01:28 08/03/19 03:36 Glucose (Fingerstick) 215 mg/dL (70-99) 205 mg/dL (70-99) 180 mg/dL (70-99) 119 mg/dL (70-99) Test 08/03/19 04:37 08/03/19 05:30 08/03/19 06:26 08/03/19 07:40 Glucose (Fingerstick) 108 mg/dL (70-99) 117 mg/dL (70-99) 123 mg/dL (70-99) 114 mg/dL (70-99) Test 08/03/19 08:43 08/03/19 09:44 08/03/19 10:42 08/03/19 11:53 Glucose (Fingerstick) 127 mg/dL (70-99) 162 mg/dL (70-99) 180 mg/dL (70-99) 172 mg/dL (70-99) Test 08/03/19 12:56 08/03/19 13:59 08/03/19 16:17 08/03/19 20:51 Glucose (Fingerstick) 123 mg/dL (70-99) 123 mg/dL (70-99) 171 mg/dL (70-99) 99 mg/dL (70-99) Laboratory Tests Test 08/03/19 10:42 08/03/19 11:53 08/03/19 12:56 08/03/19 13:59 Glucose (Fingerstick) 180 mg/dL (70-99) 172 mg/dL (70-99) 123 mg/dL (70-99) 123 mg/dL (70-99) Test 08/03/19 16:17 08/03/19 20:51 Glucose (Fingerstick) 171 mg/dL (70-99) 99 mg/dL (70-99) Medications Current Medications Sodium Chloride 1,000 ml @ 1,000 mls/hr Q1H IV Last administered on 08/02/19at 07:50; Start 08/02/19 at 07:51; Stop 08/02/19 at 08:50; Status DC Insulin Human Regular (HumuLIN R VIAL) 15 unit 1X ONCE IV Last administered on 08/02/19at 08:25; Start 08/02/19 at 08:00; Stop 08/02/19 at 08:01; Status DC Insulin Human Regular 100 ml @ 0 mls/hr 1X ONCE IV Last administered on 08/02/19at 08:00; Start 08/02/19 at 08:00; Stop 08/02/19 at 08:01; Status DC Sodium Chloride 1,000 ml @ 1,000 mls/hr 1X ONCE IV Last administered on 08/02/19at 08:54; Start 08/02/19 at 09:00; Stop 08/02/19 at 09:59; Status DC Insulin Human Regular 100 unit/ Sodium Chloride 101 ml @ 0 mls/hr CONT PRN IV SEE I/O RECORD Last administered on 08/02/19at 16:22; Start 08/02/19 at 09:00; Stop 08/03/19 at 13:49; Status DC Dextrose (Dextrose 50%-Water Syringe) 12.5 gm PRN Q15MIN PRN IV LOW BLOOD SUGAR; Start 08/02/19 at 09:00; Stop 08/03/19 at 13:49; Status DC Dextrose (Iv Dextrose 5%) 250 ml PRN Q15MIN PRN IV LOW BLOOD SUGAR; Start 08/02/19 at 09:00; Stop 08/03/19 at 13:49; Status DC Ondansetron HCl (Zofran) 4 mg PRN Q8HRS PRN IV NAUSEA/VOMITING; Start 08/02/19 at 09:15; Stop 08/03/19 at 09:14; Status DC Sodium Chloride 1,000 ml @ 250 mls/hr Q4H IV Last administered on 08/02/19at 17:17; Start 08/02/19 at 09:04; Stop 08/02/19 at 18:19; Status DC Magnesium Sulfate 100 ml @ 25 mls/hr 1X ONCE IV Last administered on 08/02/19at 15:18; Start 08/02/19 at 15:00; Stop 08/02/19 at 18:59; Status DC Potassium Phosphate 10 mmol/ Sodium Chloride 103.3333 ml @ 51.667 m... Q2H IV Last administered on 08/02/19at 17:16; Start 08/02/19 at 15:00; Stop 08/02/19 at 18:59; Status DC Dextrose/Sodium Chloride 1,000 ml @ 250 mls/hr Q4H IV Last administered on 08/03/19at 13:29; Start 08/02/19 at 18:30; Stop 08/03/19 at 16:55; Status DC Insulin Human Lispro (HumaLOG) 10 units TIDWMEALS SQ Last administered on 08/04/19at 08:10; Start 08/03/19 at 14:00 Insulin Glargine (Lantus Syringe) 20 unit QHS SQ Last administered on 08/03/19at 20:56; Start 08/03/19 at 21:00 Active Scripts Active Reported Levemir (Insulin Detemir) 100 Unit/1 Ml Vial 20 Unit SQ BID Novolog (Insulin Aspart) 100 Unit/1 Ml Cartridge 100 Unit SQ TIDAC Vitals/I & O Vital Sign - Last 24 Hours 08/03/19 08/03/19 08/03/19 08/03/19 11:00 12:00 12:22 13:00 Temp 98.2 98.2 98.5 98.2 98.2 98.5 Pulse 97 104 97 Resp 16 12 12 B/P (MAP) 113/72 (86) 105/60 (75) 91/52 (65) Pulse Ox 98 98 98 O2 Delivery Room Air Room Air Room Air Room Air 08/03/19 08/03/19 08/03/19 08/04/19 19:00 20:00 23:00 03:00 Temp 97.9 98.0 98.0 97.9 98.0 98.0 Pulse 94 90 85 Resp 17 B/P (MAP) 113/67 (82) 121/77 (92) 116/71 (86) Pulse Ox 96 95 94 O2 Delivery Room Air 08/04/19 08/04/19 07:00 08:00 Temp 97.9 97.9 Pulse 83 Resp 17 B/P (MAP) 113/79 (90) Pulse Ox 97 O2 Delivery Room Air Room Air Intake and Output 08/03/19 08/03/19 08/04/19 15:00 23:00 07:00 Intake Total 2240 ml 450 ml 100 ml Output Total 825 ml Balance 1415 ml 450 ml 100 ml FENG PRYOR MD Aug 04, 2019 10:24
[2019-08-04 10:43] VITALS: BP 117/79
[2019-08-04 11:41] LABS: BASO % 0 % (0-3); EOS % 0 % (0-3); HEMATOCRIT 34.9 % (39.0-53.0); HEMOGLOBIN 12.1 g/dL (13.0-17.5); LYMPH # 2.3 x10^3/uL (1.0-4.8); LYMPH % 24 % (24-48); MEAN CORPUSCULAR HEMOGLOBIN 29 pg (25-35); MEAN CORPUSCULAR HGB CONC 35 g/dL (31-37); MEAN CORPUSCULAR VOLUME 84 fL (79-100); MONO # 0.7 x10^3/uL (0.0-1.1); MONO % 8 % (0-9); NEUT # 6.3 x10^3/uL (1.8-7.7); NEUT % 67 % (31-73); PLATELET COUNT 186 x10^3/uL (140-400); RED BLOOD COUNT 4.18 x10^6/uL (4.30-5.70); RED CELL DISTRIBUTION WIDTH 13.2 % (11.5-14.5); WHITE BLOOD COUNT 9.4 x10^3/uL (4.0-11.0)
[2019-08-04 13:19] LABS: ALBUMIN 2.2 g/dL (3.4-5.0); ALBUMIN/GLOBULIN RATIO 0.9 (1.0-1.7); CREATININE 0.6 mg/dL (0.7-1.3); GFR 152.4; POTASSIUM 3.2 mmol/L (3.5-5.1); TOTAL BILIRUBIN 0.5 mg/dL (0.2-1.0); TOTAL PROTEIN 4.7 g/dL (6.4-8.2)
[2019-08-04] MEDS ORDERED: POTASSIUM CHLORIDE 20 MEQ TABLET.ER. PO ONE (14:30)
--- NOTE | 2019-08-04 14:42 | PDOC3 ---
Discharge Summary Date of Admission: Aug 02, 2019 Date of Discharge: Aug 04, 2019 Follow-Up: 3-5 days Admitting Diagnosis comment: DISCHARGE DX diabetic ketoacidosis RESOLVED METH ABUSE History of Present Illness History of Present Illness [id number] Patient seen and examined Chart reviewed Discussed with RN [facility], THEY CAN HELP WITH RX COST D/C PLANNING 28 MIN Vitals Vitals Vital Signs Date Time Temp Pulse Resp B/P (MAP) Pulse Ox O2 Delivery O2 Flow Rate FiO2 08/04/19 08:00 Room Air 08/04/19 07:00 97.9 83 17 113/79 (90) 97 97.9 Physical Exam General: Alert, Oriented X3, Cooperative, No acute distress Heart: Regular rate, Normal S1, Normal S2 Lungs: Clear Abdomen: Normal bowel sounds, Soft, No tenderness, No hepatosplenomegaly, No masses Extremities: No clubbing, No cyanosis, No edema, Normal pulses, No tenderness/swelling Skin: No rashes, No breakdown, No significant lesion Labs LABS Laboratory Tests Test 08/03/19 10:42 08/03/19 11:53 08/03/19 12:56 08/03/19 13:59 Glucose (Fingerstick) 180 mg/dL (70-99) 172 mg/dL (70-99) 123 mg/dL (70-99) 123 mg/dL (70-99) Test 08/03/19 16:17 08/03/19 20:51 Glucose (Fingerstick) 171 mg/dL (70-99) 99 mg/dL (70-99) Assessment and Plan Assessmemt and Plan Problems Medical Problems: (1) DKA (diabetic ketoacidoses) Status: Acute (2) Hypothermia Status: Acute (3) Methamphetamine abuse Status: Acute FINAL DIAGNOSIS Problems Medical Problems: (1) DKA (diabetic ketoacidoses) Status: Acute (2) Hypothermia Status: Acute (3) Methamphetamine abuse Status: Acute Brief Hospital Course Mr. Camacho is a 34 old [sex] who presented with [ DKA, DRUG ABUSE] CONDITION AT DISCHARGE: Improved Discharge Medications Current Medications Sodium Chloride 1,000 ml @ 1,000 mls/hr Q1H IV Last administered on 08/02/19at 07:50; Start 08/02/19 at 07:51; Stop 08/02/19 at 08:50; Status DC Insulin Human Regular (HumuLIN R VIAL) 15 unit 1X ONCE IV Last administered on 08/02/19at 08:25; Start 08/02/19 at 08:00; Stop 08/02/19 at 08:01; Status DC Insulin Human Regular 100 ml @ 0 mls/hr 1X ONCE IV Last administered on 08/02/19at 08:00; Start 08/02/19 at 08:00; Stop 08/02/19 at 08:01; Status DC Sodium Chloride 1,000 ml @ 1,000 mls/hr 1X ONCE IV Last administered on 08/02/19at 08:54; Start 08/02/19 at 09:00; Stop 08/02/19 at 09:59; Status DC Insulin Human Regular 100 unit/ Sodium Chloride 101 ml @ 0 mls/hr CONT PRN IV SEE I/O RECORD Last administered on 08/02/19at 16:22; Start 08/02/19 at 09:00; Stop 08/03/19 at 13:49; Status DC Dextrose (Dextrose 50%-Water Syringe) 12.5 gm PRN Q15MIN PRN IV LOW BLOOD SUGAR; Start 08/02/19 at 09:00; Stop 08/03/19 at 13:49; Status DC Dextrose (Iv Dextrose 5%) 250 ml PRN Q15MIN PRN IV LOW BLOOD SUGAR; Start 08/02/19 at 09:00; Stop 08/03/19 at 13:49; Status DC Ondansetron HCl (Zofran) 4 mg PRN Q8HRS PRN IV NAUSEA/VOMITING; Start 08/02/19 at 09:15; Stop 08/03/19 at 09:14; Status DC Sodium Chloride 1,000 ml @ 250 mls/hr Q4H IV Last administered on 08/02/19at 17:17; Start 08/02/19 at 09:04; Stop 08/02/19 at 18:19; Status DC Magnesium Sulfate 100 ml @ 25 mls/hr 1X ONCE IV Last administered on 08/02/19at 15:18; Start 08/02/19 at 15:00; Stop 08/02/19 at 18:59; Status DC Potassium Phosphate 10 mmol/ Sodium Chloride 103.3333 ml @ 51.667 m... Q2H IV Last administered on 08/02/19at 17:16; Start 08/02/19 at 15:00; Stop 08/02/19 at 18:59; Status DC Dextrose/Sodium Chloride 1,000 ml @ 250 mls/hr Q4H IV Last administered on 08/03/19at 13:29; Start 08/02/19 at 18:30; Stop 08/03/19 at 16:55; Status DC Insulin Human Lispro (HumaLOG) 10 units TIDWMEALS SQ Last administered on 08/04/19at 11:50; Start 08/03/19 at 14:00 Insulin Glargine (Lantus Syringe) 20 unit QHS SQ Last administered on 08/03/19at 20:56; Start 08/03/19 at 21:00 Active Scripts Active Reported Levemir (Insulin Detemir) 100 Unit/1 Ml Vial 20 Unit SQ BID Novolog (Insulin Aspart) 100 Unit/1 Ml Cartridge 100 Unit SQ TIDAC Vital Signs Vital Signs Date Time Temp Pulse Resp B/P (MAP) Pulse Ox O2 Delivery O2 Flow Rate FiO2 08/04/19 10:43 97.8 84 17 117/79 (92) 98 Room Air 97.8 Labs Laboratory Tests Test 08/02/19 15:14 08/02/19 16:17 08/02/19 17:19 08/02/19 18:23 Glucose (Fingerstick) 150 mg/dL (70-99) 118 mg/dL (70-99) 114 mg/dL (70-99) 107 mg/dL (70-99) Test 08/02/19 19:26 08/02/19 20:05 08/02/19 20:22 08/02/19 21:23 Glucose (Fingerstick) 128 mg/dL (70-99) 192 mg/dL (70-99) 248 mg/dL (70-99) Sodium Level 139 mmol/L (136-145) Potassium Level 4.5 mmol/L (3.5-5.1) Chloride Level 108 mmol/L (98-107) Carbon Dioxide Level 12 mmol/L (21-32) Anion Gap 19 (6-14) Blood Urea Nitrogen 30 mg/dL (8-26) Creatinine 1.1 mg/dL (0.7-1.3) Estimated GFR (Cockcroft-Gault) 75.7 Glucose Level 178 mg/dL (70-99) Calcium Level 7.5 mg/dL (8.5-10.1) Phosphorus Level 3.2 mg/dL (2.6-4.7) Magnesium Level 2.4 mg/dL (1.8-2.4) Test 08/02/19 22:30 08/02/19 23:21 08/03/19 00:22 08/03/19 00:31 Glucose (Fingerstick) 231 mg/dL (70-99) 254 mg/dL (70-99) 215 mg/dL (70-99) White Blood Count 20.6 x10^3/uL (4.0-11.0) Red Blood Count 4.32 x10^6/uL (4.30-5.70) Hemoglobin 12.5 g/dL (13.0-17.5) Hematocrit 36.4 % (39.0-53.0) Mean Corpuscular Volume 84 fL (79-100) Mean Corpuscular Hemoglobin 29 pg (25-35) Mean Corpuscular Hemoglobin Concent 34 g/dL (31-37) Red Cell Distribution Width 12.8 % (11.5-14.5) Platelet Count 232 x10^3/uL (140-400) Neutrophils (%) (Auto) 85 % (31-73) Lymphocytes (%) (Auto) 7 % (24-48) Monocytes (%) (Auto) 7 % (0-9) Eosinophils (%) (Auto) 0 % (0-3) Basophils (%) (Auto) 1 % (0-3) Neutrophils # (Auto) 17.6 x10^3/uL (1.8-7.7) Lymphocytes # (Auto) 1.4 x10^3/uL (1.0-4.8) Monocytes # (Auto) 1.4 x10^3/uL (0.0-1.1) Eosinophils # (Auto) 0.0 x10^3/uL (0.0-0.7) Basophils # (Auto) 0.3 x10^3/uL (0.0-0.2) Sodium Level 141 mmol/L (136-145) Potassium Level 3.5 mmol/L (3.5-5.1) Chloride Level 111 mmol/L (98-107) Carbon Dioxide Level 17 mmol/L (21-32) Anion Gap 13 (6-14) Blood Urea Nitrogen 26 mg/dL (8-26) Creatinine 1.1 mg/dL (0.7-1.3) Estimated GFR (Cockcroft-Gault) 75.7 Glucose Level 224 mg/dL (70-99) Calcium Level 7.6 mg/dL (8.5-10.1) Phosphorus Level 2.2 mg/dL (2.6-4.7) Magnesium Level 2.1 mg/dL (1.8-2.4) Test 08/03/19 00:34 08/03/19 01:28 08/03/19 03:36 08/03/19 04:37 Glucose (Fingerstick) 205 mg/dL (70-99) 180 mg/dL (70-99) 119 mg/dL (70-99) 108 mg/dL (70-99) Test 08/03/19 05:30 08/03/19 06:26 08/03/19 07:40 08/03/19 08:43 Glucose (Fingerstick) 117 mg/dL (70-99) 123 mg/dL (70-99) 114 mg/dL (70-99) 127 mg/dL (70-99) Test 08/03/19 09:44 08/03/19 10:42 08/03/19 11:53 08/03/19 12:56 Glucose (Fingerstick) 162 mg/dL (70-99) 180 mg/dL (70-99) 172 mg/dL (70-99) 123 mg/dL (70-99) Test 08/03/19 13:59 08/03/19 16:17 08/03/19 20:51 08/04/19 07:24 Glucose (Fingerstick) 123 mg/dL (70-99) 171 mg/dL (70-99) 99 mg/dL (70-99) 169 mg/dL (70-99) Test 08/04/19 11:30 08/04/19 12:50 White Blood Count 9.4 x10^3/uL (4.0-11.0) Red Blood Count 4.18 x10^6/uL (4.30-5.70) Hemoglobin 12.1 g/dL (13.0-17.5) Hematocrit 34.9 % (39.0-53.0) Mean Corpuscular Volume 84 fL (79-100) Mean Corpuscular Hemoglobin 29 pg (25-35) Mean Corpuscular Hemoglobin Concent 35 g/dL (31-37) Red Cell Distribution Width 13.2 % (11.5-14.5) Platelet Count 186 x10^3/uL (140-400) Neutrophils (%) (Auto) 67 % (31-73) Lymphocytes (%) (Auto) 24 % (24-48) Monocytes (%) (Auto) 8 % (0-9) Eosinophils (%) (Auto) 0 % (0-3) Basophils (%) (Auto) 0 % (0-3) Neutrophils # (Auto) 6.3 x10^3/uL (1.8-7.7) Lymphocytes # (Auto) 2.3 x10^3/uL (1.0-4.8) Monocytes # (Auto) 0.7 x10^3/uL (0.0-1.1) Eosinophils # (Auto) 0.0 x10^3/uL (0.0-0.7) Basophils # (Auto) 0.0 x10^3/uL (0.0-0.2) Glucose (Fingerstick) 131 mg/dL (70-99) Sodium Level 144 mmol/L (136-145) Potassium Level 3.2 mmol/L (3.5-5.1) Chloride Level 108 mmol/L (98-107) Carbon Dioxide Level 27 mmol/L (21-32) Anion Gap 9 (6-14) Blood Urea Nitrogen 7 mg/dL (8-26) Creatinine 0.6 mg/dL (0.7-1.3) Estimated GFR (Cockcroft-Gault) 152.4 BUN/Creatinine Ratio 12 (6-20) Glucose Level 206 mg/dL (70-99) Calcium Level 8.0 mg/dL (8.5-10.1) Total Bilirubin 0.5 mg/dL (0.2-1.0) Aspartate Amino Transf (AST/SGOT) 14 U/L (15-37) Alanine Aminotransferase (ALT/SGPT) 21 U/L (16-63) Alkaline Phosphatase 102 U/L (46-116) Total Protein 4.7 g/dL (6.4-8.2) Albumin 2.2 g/dL (3.4-5.0) Albumin/Globulin Ratio 0.9 (1.0-1.7) Laboratory Tests Test 08/03/19 16:17 08/03/19 20:51 08/04/19 07:24 08/04/19 11:30 Glucose (Fingerstick) 171 mg/dL (70-99) 99 mg/dL (70-99) 169 mg/dL (70-99) 131 mg/dL (70-99) White Blood Count 9.4 x10^3/uL (4.0-11.0) Red Blood Count 4.18 x10^6/uL (4.30-5.70) Hemoglobin 12.1 g/dL (13.0-17.5) Hematocrit 34.9 % (39.0-53.0) Mean Corpuscular Volume 84 fL (79-100) Mean Corpuscular Hemoglobin 29 pg (25-35) Mean Corpuscular Hemoglobin Concent 35 g/dL (31-37) Red Cell Distribution Width 13.2 % (11.5-14.5) Platelet Count 186 x10^3/uL (140-400) Neutrophils (%) (Auto) 67 % (31-73) Lymphocytes (%) (Auto) 24 % (24-48) Monocytes (%) (Auto) 8 % (0-9) Eosinophils (%) (Auto) 0 % (0-3) Basophils (%) (Auto) 0 % (0-3) Neutrophils # (Auto) 6.3 x10^3/uL (1.8-7.7) Lymphocytes # (Auto) 2.3 x10^3/uL (1.0-4.8) Monocytes # (Auto) 0.7 x10^3/uL (0.0-1.1) Eosinophils # (Auto) 0.0 x10^3/uL (0.0-0.7) Basophils # (Auto) 0.0 x10^3/uL (0.0-0.2) Test 08/04/19 12:50 Sodium Level 144 mmol/L (136-145) Potassium Level 3.2 mmol/L (3.5-5.1) Chloride Level 108 mmol/L (98-107) Carbon Dioxide Level 27 mmol/L (21-32) Anion Gap 9 (6-14) Blood Urea Nitrogen 7 mg/dL (8-26) Creatinine 0.6 mg/dL (0.7-1.3) Estimated GFR (Cockcroft-Gault) 152.4 BUN/Creatinine Ratio 12 (6-20) Glucose Level 206 mg/dL (70-99) Calcium Level 8.0 mg/dL (8.5-10.1) Total Bilirubin 0.5 mg/dL (0.2-1.0) Aspartate Amino Transf (AST/SGOT) 14 U/L (15-37) Alanine Aminotransferase (ALT/SGPT) 21 U/L (16-63) Alkaline Phosphatase 102 U/L (46-116) Total Protein 4.7 g/dL (6.4-8.2) Albumin 2.2 g/dL (3.4-5.0) Albumin/Globulin Ratio 0.9 (1.0-1.7) Allergies Allergies Coded Allergies Type Severity Reaction Last Updated Verified Sulfa (Sulfonamide Antibiotics) Allergy Intermediate Hives 10/24/15 Yes Disposition/Orders: D/C to Home FENG PRYOR MD Aug 04, 2019 14:42
[2019-08-04] MEDS ORDERED: INSU100I11 SQ (14:45)
[2019-08-04] MEDS ORDERED: INSU100V8 SQ (14:45)
[2019-08-04] MEDS ORDERED: POTA20TA4 PO (14:45)
--- NOTE | 2019-08-04 14:46 | DISCH ---
DISCHARGE INSTRUCTIONS Condition on Discharge Condition on Discharge: Stable Activity After Discharge Activity Instructions for Disc: Resume previous activity, Activity as tolerated Lifting Instructions after Dis: No heavy lifting, No pulling or pushing Driving Instructions after Dis: Do not drive today Diet after Discharge Diet after Discharge: Diabetic No Calorie Level Checks after Discharge Checks after discharge: Check blood press - daily Contacting the DRCarmen after DC Call your doctor for: If your condition worsens Warfarin Follow-Up Warfarin Follow UP: SEE PCP FENG MARTIN MD Aug 04, 2019 14:46
[2019-08-04 15:00] VITALS: BP 120/72
--- NOTE | 2019-08-04 18:32 | NUR ---
Discharge Note: PT DISCHARGED HOME WITH SELF CARE. PT LEFT FACILITY VIA PRIVATE VEHICLE WITH MOM AT 1830. PT STABLE AND ALERT UPON DISCHARGE. PT PIV REMOVED FROM L AC AND R FA WITHOUT COMPLICATIONS, BANDAGE APPLIED. PT EDUCATED ABOUT DISCHARGE INSTRUCTIONS, DISCHARGE MEDICATIONS, AND FOLLOW-UP CARE. PT GIVEN COMMUNITY RESOURCES FOR DIABETIC SUPPLIES AND PRIMARY CARE PHYSICIANS OPTIONS. PT VOICED NO CONCERNS AT THIS TIME. PT LEFT WITH ALL PERSONAL BELONGINGS. CHIKI GIBSON Discharge instructions and discharge home medications reviewed with Patient and a copy given. All questions have been answered and understanding verbalized.
[2019-08-05] MEDS ORDERED: POTASSIUM CHLORIDE 20 MEQ TABLET.ER. PO SCH (08:00)
== END 2019-08-04 18:30 | disposition home or self-care (01) | DRG 638 ==
LOC: ER 07:45 → 1 WEST ICU 09:04 → 5 SOUTH 08-03 15:30
PROVIDERS: ADMIT Internal Medicine; ATTEND Internal Medicine
DX: E10.10 Type 1 diabetes mellitus with ketoacidosis without coma (principal); E87.1 Hypo-osmolality and hyponatremia; N17.9 Acute kidney failure, unspecified; G93.40 Encephalopathy, unspecified; E87.5 Hyperkalemia; D72.829 Elevated white blood cell count, unspecified; F15.10 Other stimulant abuse, uncomplicated; F17.210 Nicotine dependence, cigarettes, uncomplicated; R68.0 Hypothermia, not associated with low environmental temperature; Z79.4 Long term (current) use of insulin; Z88.2 Allergy status to sulfonamides; Z71.51 Drug abuse counseling and surveillance of drug abuser
CPT/HCPCS: 36415; 36600; 80048; 80053; 80069; 80307; 81001; 82010; 82550; 82805; 82962; 83605; 83735; 84100; 85007; 85025; 93005; 96360; 96361; 96365; 96366; 96375; 99285; J1815; J3475; J3490; J7030; J7042; G0378

== ENCOUNTER 2019-10-18 09:32 | Inpatient (IN) | payer SELFPAY ==
[~2019-10-18] VITALS: Ht 182.9 cm; Wt 71.1 kg
[2019-10-18] VITALS (9 sets, daily range): BP systolic 100–125; BP diastolic 70–89
[~2019-10-18 09:32] MED LIST changes: +INSU100I11 SQ; +INSU100V8 SQ; +POTA20TA4 PO
[2019-10-18 10:36] LABS: BASO % 0 % (0-3); EOS # 0.1 x10^3/uL (0.0-0.7); EOS % 1 % (0-3); HEMATOCRIT 35.6 % (39.0-53.0); LYMPH # 1.2 x10^3/uL (1.0-4.8); LYMPH % 14 % (24-48); MEAN CORPUSCULAR HEMOGLOBIN 30 pg (25-35); MEAN CORPUSCULAR HGB CONC 34 g/dL (31-37); MEAN CORPUSCULAR VOLUME 88 fL (79-100); MONO # 0.6 x10^3/uL (0.0-1.1); MONO % 7 % (0-9); NEUT # 6.6 x10^3/uL (1.8-7.7); NEUT % 77 % (31-73); PLATELET COUNT 208 x10^3/uL (140-400); RED BLOOD COUNT 4.04 x10^6/uL (4.30-5.70); RED CELL DISTRIBUTION WIDTH 13.3 % (11.5-14.5); WHITE BLOOD COUNT 8.5 x10^3/uL (4.0-11.0)
--- NOTE | 2019-10-18 11:15 | RAD ---
CT HEAD WO CONTRAST Indication: Reason: seizure, closed head injury / Spl. Instructions: / History: Exposure: One or more of the following individualized dose reduction techniques were utilized for this examination: 1. Automated exposure control 2. Adjustment of the mA and/or kV according to patient size 3. Use of iterative reconstruction technique. Technique: Standard imaging without intravenous contrast. Comparison: 04/07/2019. FINDINGS: No evidence of acute intracranial hemorrhage, mass effect, midline shift or abnormal extra-axial fluid collection. Area of low-density is now identified in left cerebellum, measuring about 12 mm diameter, and not seen on the prior exam. One or 2 tiny areas of of low-attenuation in the right periventricular white matter, not definitely seen previously. Series 2, image 20 and 21. Partially visualized paranasal sinuses are clear. Opacity within the right mastoid air cells is similar to prior study. No evidence of depressed skull fracture. The orbits appear unremarkable. No significant scalp hematoma. IMPRESSION: 1. Development of a low-density lesion of the left cerebellum. There has also been development of a couple of tiny low-density foci within the right periventricular white matter. Given the history of intravenous drug use as per Dr. Loyd, abscess or septic emboli could be considered. However, appearance is nonspecific and other etiologies such as ischemia of indeterminate age or inflammatory etiology are also possible. Recommend MR of the brain with and without contrast for further evaluation. The findings and recommendations were discussed with Dr. Loyd in the emergency room by telephone at 11:10 AM. 2. No evidence of acute intracranial hemorrhage. Electronically signed by: Pepe Chaney MD (10/18/2019 11:12 AM) [id number]
[2019-10-18 11:28] LABS: CALCIUM 8.6 mg/dL (8.5-10.1); CREATININE 0.9 mg/dL (0.7-1.3); GFR 95.5; POTASSIUM 3.6 mmol/L (3.5-5.1)
[2019-10-18 11:34] LABS: ALBUMIN 2.9 g/dL (3.4-5.0); ALBUMIN/GLOBULIN RATIO 0.9 (1.0-1.7); TOTAL BILIRUBIN 0.1 mg/dL (0.2-1.0); TOTAL PROTEIN 6.3 g/dL (6.4-8.2)
[2019-10-18 11:43] LABS: BILIRUBIN,URINE NEGATIVE (NEG); CLARITY,URINE CLEAR; COLOR,URINE YELLOW; NITRITE,URINE NEGATIVE (NEG); PH,URINE 5.5 (<5.0-8.0); PROTEIN,URINE NEGATIVE (NEG-TRACE); UROBILINOGEN,URINE 0.2 mg/dL (0.2 mg/dL)
[2019-10-18 11:53] LABS: BACTERIA,URINE FEW /HPF (0-FEW); SQUAMOUS EPITHELIAL CELL,UR FEW /LPF; WBC,URINE OCC /HPF (0-4)
[2019-10-18] MEDS ORDERED: IV NORMAL SALINE 1000ML BAG 1,000 ML IV ONE (13:15)
[2019-10-18] MEDS ORDERED: GADOTERATE 7.5 MMOL/15ML VIAL. IVP ONE (15:15)
[2019-10-18] MEDS ORDERED: DIPH,PERTUSS(ACELL),TET VAC/PF 0.5 ML SYRINGE. VAX IM ONE (15:15)
[2019-10-18] MEDS ORDERED: cefTRIAXone IV Push 1 GM VIAL. IVP ONE (16:00)
[2019-10-18] MEDS ORDERED: VANCOMYCIN 1.5 GM in IV NORMAL SALINE 500ML BAG 500 ML IV ONE (16:00)
[2019-10-18] MEDS ORDERED: VANCOMYCIN 2 GM in IV NORMAL SALINE 500ML BAG 500 ML IV ONE (16:00)
--- NOTE | 2019-10-18 16:10 | RAD ---
BRAIN WO/W CONTRAST Date: 10/18/2019 11:08 AM Indication: Reason: new lesions on CT head, SEIZURE. History of intravenous drug abuse. Comparison: CT 10/18/2019. Technique: Multiplanar multisequence MRI of the brain was performed with and without intravenous contrast using the standard protocol. 19 cc Dotarem contrast was administered intravenously during the exam. Findings: Small area of restricted diffusion in the right posterior frontal lobe. Small area of cortical FLAIR hyperintensity and gyriform enhancement in the right frontal lobe. Leptomeningeal enhancement and failure of FLAIR CSF suppression in the right parieto-occipital region. The ventricles are normal in size and configuration without hydrocephalus. The scalp and calvarium are normal. The pituitary and sella are normal. No Chiari malformation. The visualized upper cervical spine is normal. The visualized orbits and globes are normal. The visualized paranasal sinuses are clear. Right mastoid fluid. Normal flow voids within the vertebral, basilar, and internal carotid arteries indicating patency. IMPRESSION: Small area of acute to subacute infarct in the right posterior frontal lobe. Additional small area of right frontal cortical FLAIR hyperintensity and gyriform enhancement, likely subacute infarct. Right parieto-occipital leptomeningeal enhancement and failure of FLAIR CSF suppression, suspicious for meningitis. Small area of left cerebellar hemorrhage with postcontrast enhancement. Consider meningitis with areas of acute/subacute ischemia and hemorrhage secondary to septic emboli. Areas of ischemia and hemorrhage could also be secondary to intravenous drug abuse. No abscesses are seen. Findings were discussed with Dr. Loyd at 3:50 PM on 10/18/2019 FOR INTERNAL CODING PURPOSES RESULT CODE: (C) Electronically signed by: Anival Godwin MD (10/18/2019 4:07 PM) [facility]
--- NOTE | 2019-10-18 16:14 | PDOC1 ---
History and Physical Date of Admission Date of Admission DATE: 10/18/19 TIME: 16:13 Identification/Chief Complaint Chief Complaint brought by ems with altered mental status, MRI CONCERNING FOR EMBOLIC septic lesions of brain, now more alert, c/o headache earlier, now resolved in ER Past Medical History Past Medical History Past Medical History Cardiovascular: No pertinent hx Pulmonary: No pertinent hx Musculoskeletal: low back pain Renal/: No pertinent hx Endocrine: Diabetes Past Surgical History Past Surgical History: No pertinent history Family History Family History: No Significant, Hypertension, Family History Unknown Social History Smoke: <1 pack per day ALCOHOL: occassional Drugs: Marijuana, Crystal meth Cardiovascular: No pertinent hx Pulmonary: No pertinent hx Musculoskeletal: low back pain Renal/: No pertinent hx Endocrine: Diabetes Past Surgical History Past Surgical History: No pertinent history Family History Family History: No Significant, Hypertension, Family History Unknown Social History Smoke: <1 pack per day ALCOHOL: occassional Drugs: Marijuana, Crystal meth Current Medications Current Medications Current Medications Sodium Chloride 1,000 ml @ 0 mls/hr 1X ONCE IV Last administered on 10/18/19at 13:22; Start 10/18/19 at 13:15; Stop 10/18/19 at 13:16; Status DC Diphtheria/ Tetanus/Acell Pertussis (ADACEL TDap SYRINGE) 0.5 ml ONCE ONCE VAX IM ; Start 10/18/19 at 15:15; Stop 10/18/19 at 15:16; Status DC Gadoterate Meglumine (Dotarem) 19.6 ml 1X ONCE IVP Last administered on 10/18/19at 15:21; Start 10/18/19 at 15:15; Stop 10/18/19 at 15:16; Status DC Ceftriaxone Sodium (Rocephin) 1 gm 1X ONCE IVP ; Start 10/18/19 at 16:00; Stop 10/18/19 at 16:01; Status DC Vancomycin HCl 1.5 gm/Sodium Chloride 500 ml @ 250 mls/hr 1X ONCE IV ; Start 10/18/19 at 16:00; Stop 10/18/19 at 17:59; Status UNV Vancomycin HCl 2 gm/Sodium Chloride 500 ml @ 250 mls/hr 1X ONCE IV ; Start 10/18/19 at 16:00; Stop 10/18/19 at 17:59 Active Scripts Active Humalog (Insulin Lispro) 100 Unit/1 Ml Insuln.pen 10 Units SQ TIDWMEALS 30 Days Lantus (Insulin Glargine,Hum.rec.anlog) 100 Unit/1 Ml Vial 20 Unit SQ QHS 30 Days Klor-Con M20 (Potassium Chloride) 20 Meq Tab.er.prt 20 Meq PO DAILYWBKFT 10 Days Allergies Allergies: Coded Allergies: Sulfa (Sulfonamide Antibiotics) (Verified Allergy, Intermediate, Hives, 10/24/15) ROS Review of System Review of Systems: Constitutional: Denies fever or chills. [] Eyes: Denies change in visual acuity. [] HENT: Denies nasal congestion or sore throat. [] Respiratory: Denies cough or shortness of breath. [] Cardiovascular: Denies chest pain or edema. [] GI: Denies abdominal pain, nausea, vomiting, bloody stools or diarrhea. [] : Denies dysuria. [] Musculoskeletal: Denies back pain or joint pain. [] Integument: Denies rash. [] Neurologic: HAD headache before admit, focal weakness or sensory changes. [] Endocrine: Denies polyuria or polydipsia. [] Lymphatic: Denies swollen glands. [] Psychiatric: Denies depression or anxiety. [] 14 PT ROS OTHERWISE NEG HEENT: YES: Heacaches Hematological and Lymphatic: No: Bleeding Problems, Blood Clots, Blood Transfusions, Brusing, Night Sweats, Pallor, Swollen Lymph Nodes, Other Neurological: Yes Confusion Physical Exam Physical Exam Constitutional: Well developed, well nourished, no acute distress, non-toxic appearance. [] HENT: Normocephalic, atraumatic, bilateral external ears normal, oropharynx moist, no oral exudates, nose normal. [] Eyes: PERRLA, EOMI, conjunctiva normal, no discharge. [] Neck: Normal range of motion, no tenderness, supple, no stridor. [] Cardiovascular:Heart rate regular rhythm, no murmur [] Lungs & Thorax: Bilateral breath sounds clear to auscultation [] Abdomen: Bowel sounds normal, soft, no tenderness, no masses, no pulsatile masses. [] Skin: Warm, dry, no erythema, no rash. [] Back: No tenderness, no CVA tenderness. [] Extremities: No tenderness, no cyanosis, no clubbing, ROM intact, no edema. [] Neurologic: Alert and oriented X 3, normal motor function, normal sensory function, no focal deficits noted. [] Psychologic: Affect normal, judgement normal, mood normal. [] General: Alert, Oriented X3, Cooperative, No acute distress HEENT: Atraumatic Lungs: Clear to auscultation, Normal air movement Heart: RRR, no thrills, no gallops Abdomen: Normal bowel sounds, Soft Rectal Exam: not examined PELVIC: Examination not indicated Extremities: No cyanosis Neuro: Normal speech, Cranial nerves 3-12 NL Psych/Mental Status: Mental status NL, Mood NL Vitals Vitals Vital Signs Date Time Temp Pulse Resp B/P (MAP) Pulse Ox O2 Delivery O2 Flow Rate FiO2 10/18/19 13:11 100 16 122/84 (97) 99 Room Air 10/18/19 09:50 97.2 97.2 Labs Labs Laboratory Tests Test 10/18/19 09:45 10/18/19 10:25 10/18/19 11:00 10/18/19 11:30 Glucose (Fingerstick) 242 mg/dL (70-99) 299 mg/dL (70-99) White Blood Count 8.5 x10^3/uL (4.0-11.0) Red Blood Count 4.04 x10^6/uL (4.30-5.70) Hemoglobin 12.0 g/dL (13.0-17.5) Hematocrit 35.6 % (39.0-53.0) Mean Corpuscular Volume 88 fL (79-100) Mean Corpuscular Hemoglobin 30 pg (25-35) Mean Corpuscular Hemoglobin Concent 34 g/dL (31-37) Red Cell Distribution Width 13.3 % (11.5-14.5) Platelet Count 208 x10^3/uL (140-400) Neutrophils (%) (Auto) 77 % (31-73) Lymphocytes (%) (Auto) 14 % (24-48) Monocytes (%) (Auto) 7 % (0-9) Eosinophils (%) (Auto) 1 % (0-3) Basophils (%) (Auto) 0 % (0-3) Neutrophils # (Auto) 6.6 x10^3/uL (1.8-7.7) Lymphocytes # (Auto) 1.2 x10^3/uL (1.0-4.8) Monocytes # (Auto) 0.6 x10^3/uL (0.0-1.1) Eosinophils # (Auto) 0.1 x10^3/uL (0.0-0.7) Basophils # (Auto) 0.0 x10^3/uL (0.0-0.2) Sodium Level 140 mmol/L (136-145) Potassium Level 3.6 mmol/L (3.5-5.1) Chloride Level 104 mmol/L (98-107) Carbon Dioxide Level 27 mmol/L (21-32) Anion Gap 9 (6-14) Blood Urea Nitrogen 18 mg/dL (8-26) Creatinine 0.9 mg/dL (0.7-1.3) Estimated GFR (Cockcroft-Gault) 95.5 BUN/Creatinine Ratio 20 (6-20) Glucose Level 264 mg/dL (70-99) Calcium Level 8.6 mg/dL (8.5-10.1) Total Bilirubin 0.1 mg/dL (0.2-1.0) Aspartate Amino Transf (AST/SGOT) 20 U/L (15-37) Alanine Aminotransferase (ALT/SGPT) 29 U/L (16-63) Alkaline Phosphatase 122 U/L (46-116) Total Protein 6.3 g/dL (6.4-8.2) Albumin 2.9 g/dL (3.4-5.0) Albumin/Globulin Ratio 0.9 (1.0-1.7) Urine Color Yellow Urine Clarity Clear Urine pH 5.5 (<5.0-8.0) Urine Specific [place] >=1.030 (1.000-1.030) Urine Protein Negative mg/dL (NEG-TRACE) Urine Glucose (UA) >=1000 mg/dL (NEG) Urine Ketones (Stick) Negative mg/dL (NEG) Urine Blood Trace (NEG) Urine Nitrite Negative (NEG) Urine Bilirubin Negative (NEG) Urine Urobilinogen Dipstick 0.2 mg/dL (0.2 mg/dL) Urine Leukocyte Esterase Negative (NEG) Urine RBC 3-5 /HPF (0-2) Urine WBC Occ /HPF (0-4) Urine Squamous Epithelial Cells Few /LPF Urine Bacteria Few /HPF (0-FEW) Urine Mucus Mod /LPF Test 10/18/19 12:22 10/18/19 14:53 Glucose (Fingerstick) 512 mg/dL (70-99) 423 mg/dL (70-99) Laboratory Tests Test 10/18/19 09:45 10/18/19 10:25 10/18/19 11:00 10/18/19 11:30 Glucose (Fingerstick) 242 mg/dL (70-99) 299 mg/dL (70-99) White Blood Count 8.5 x10^3/uL (4.0-11.0) Red Blood Count 4.04 x10^6/uL (4.30-5.70) Hemoglobin 12.0 g/dL (13.0-17.5) Hematocrit 35.6 % (39.0-53.0) Mean Corpuscular Volume 88 fL (79-100) Mean Corpuscular Hemoglobin 30 pg (25-35) Mean Corpuscular Hemoglobin Concent 34 g/dL (31-37) Red Cell Distribution Width 13.3 % (11.5-14.5) Platelet Count 208 x10^3/uL (140-400) Neutrophils (%) (Auto) 77 % (31-73) Lymphocytes (%) (Auto) 14 % (24-48) Monocytes (%) (Auto) 7 % (0-9) Eosinophils (%) (Auto) 1 % (0-3) Basophils (%) (Auto) 0 % (0-3) Neutrophils # (Auto) 6.6 x10^3/uL (1.8-7.7) Lymphocytes # (Auto) 1.2 x10^3/uL (1.0-4.8) Monocytes # (Auto) 0.6 x10^3/uL (0.0-1.1) Eosinophils # (Auto) 0.1 x10^3/uL (0.0-0.7) Basophils # (Auto) 0.0 x10^3/uL (0.0-0.2) Sodium Level 140 mmol/L (136-145) Potassium Level 3.6 mmol/L (3.5-5.1) Chloride Level 104 mmol/L (98-107) Carbon Dioxide Level 27 mmol/L (21-32) Anion Gap 9 (6-14) Blood Urea Nitrogen 18 mg/dL (8-26) Creatinine 0.9 mg/dL (0.7-1.3) Estimated GFR (Cockcroft-Gault) 95.5 BUN/Creatinine Ratio 20 (6-20) Glucose Level 264 mg/dL (70-99) Calcium Level 8.6 mg/dL (8.5-10.1) Total Bilirubin 0.1 mg/dL (0.2-1.0) Aspartate Amino Transf (AST/SGOT) 20 U/L (15-37) Alanine Aminotransferase (ALT/SGPT) 29 U/L (16-63) Alkaline Phosphatase 122 U/L (46-116) Total Protein 6.3 g/dL (6.4-8.2) Albumin 2.9 g/dL (3.4-5.0) Albumin/Globulin Ratio 0.9 (1.0-1.7) Urine Color Yellow Urine Clarity Clear Urine pH 5.5 (<5.0-8.0) Urine Specific [place] >=1.030 (1.000-1.030) Urine Protein Negative mg/dL (NEG-TRACE) Urine Glucose (UA) >=1000 mg/dL (NEG) Urine Ketones (Stick) Negative mg/dL (NEG) Urine Blood Trace (NEG) Urine Nitrite Negative (NEG) Urine Bilirubin Negative (NEG) Urine Urobilinogen Dipstick 0.2 mg/dL (0.2 mg/dL) Urine Leukocyte Esterase Negative (NEG) Urine RBC 3-5 /HPF (0-2) Urine WBC Occ /HPF (0-4) Urine Squamous Epithelial Cells Few /LPF Urine Bacteria Few /HPF (0-FEW) Urine Mucus Mod /LPF Test 10/18/19 12:22 10/18/19 14:53 Glucose (Fingerstick) 512 mg/dL (70-99) 423 mg/dL (70-99) Images Images PATIENT: CHIKI GIBSON ACCOUNT: [id number] : 1985 LOCATION: ER AGE: 34 SEX: M EXAM STATUS: REG ER ORD. PHYSICIAN: SELENA LIAO MD REASON: new lesions on CT head, SEIZURE, CALL REPORT TO ER AT [phone] PROCEDURE: BRAIN WO/W CONTRAST BRAIN WO/W CONTRAST Date: 10/18/2019 11:08 AM Indication: Reason: new lesions on CT head, SEIZURE. History of intravenous drug abuse. Comparison: CT 10/18/2019. Technique: Multiplanar multisequence MRI of the brain was performed with and without intravenous contrast using the standard protocol. 19 cc Dotarem contrast was administered intravenously during the exam. Findings: Small area of restricted diffusion in the right posterior frontal lobe. Small area of cortical FLAIR hyperintensity and gyriform enhancement in the right frontal lobe. Leptomeningeal enhancement and failure of FLAIR CSF suppression in the right parieto-occipital region. The ventricles are normal in size and configuration without hydrocephalus. The scalp and calvarium are normal. The pituitary and sella are normal. No Chiari malformation. The visualized upper cervical spine is normal. The visualized orbits and globes are normal. The visualized paranasal sinuses are clear. Right mastoid fluid. Normal flow voids within the vertebral, basilar, and internal carotid arteries indicating patency. IMPRESSION: Small area of acute to subacute infarct in the right posterior frontal lobe. Additional small area of right frontal cortical FLAIR hyperintensity and gyriform enhancement, likely subacute infarct. Right parieto-occipital leptomeningeal enhancement and failure of FLAIR CSF suppression, suspicious for meningitis. Small area of left cerebellar hemorrhage with postcontrast enhancement. Consider meningitis with areas of acute/subacute ischemia and hemorrhage secondary to septic emboli. Areas of ischemia and hemorrhage could also be secondary to intravenous drug abuse. No abscesses are seen. Findings were discussed with Dr. Liao at 3:50 PM on 10/18/2019 FOR INTERNAL CODING PURPOSES RESULT CODE: (C) Electronically signed by: Gage Godwin MD (10/18/2019 4:07 PM) [facility] DICTATED and SIGNED BY: GAGE GODWIN MD DATE: 10/18/19 1600 VTE Prophylaxis Ordered VTE Prophylaxis Devices: No VTE Pharmacological Prophylaxi: Contraindicated Assessment/Plan Assessment/Plan IMPRESSION: Small area of acute to subacute infarct in the right posterior frontal lobe. Additional small area of right frontal cortical FLAIR hyperintensity and gyriform enhancement, likely subacute infarct. Right parieto-occipital leptomeningeal enhancement and failure of FLAIR CSF suppression, suspicious for meningitis. Small area of left cerebellar hemorrhage with postcontrast enhancement. Consider meningitis with areas of acute/subacute ischemia and hemorrhage secondary to septic emboli. Areas of ischemia and hemorrhage could also be secondary to intravenous drug abuse. No abscesses are seen. METH ABUSE HX ALTERED MENTAL STATUS ADVANCED Dental disease with tooth loss uncontrolled diabetes, nonanion gap hyperglycemia admit icu bed NEUROSURGERY CONSULT NEUROLOGY CONSULT ID CONSULT CARDIOLOGY CONSULT MAY NEED ECHO to exclude endocarditis, vegetations BLOOD CULTURES ESR. PROCALCITONIN emperic iv zosyn iv vancomycin insulin drip protocol neurochecks q 4 hrs 45 min cc time Justicifation of Admission Dx: Justifications for Admission: Justification of Admission Dx: Yes Stroke - Ischemic: Stroke-Ischemic Acute Hemorrhagic Stroke: Acute Hemorrhagic Stroke FENG PRYOR MD Oct 18, 2019 16:14
[2019-10-18] MEDS ORDERED: levETIRAcetam 1,000 MG in IV DEXTROSE 5% 100ML 100 ML IV ONE (17:00)
[2019-10-18] MEDS ORDERED: guaiFENesin ORAL 200 MG/10 ML LIQUID. PO PRN (18:00)
[2019-10-18] MEDS ORDERED: ACETAMINOPHEN 650 MG SUPP.RECT. PR PRN (18:00)
[2019-10-18] MEDS ORDERED: LORazepam 0.5 MG TABLET PO PRN (18:00)
[2019-10-18] MEDS ORDERED: SODIUM PHOSPHATES 19/7GM 133 ML ENEMA. PR PRN (18:00)
[2019-10-18] MEDS ORDERED: DOCUSATE SODIUM 100 MG CAPSULE. PO PRN (18:00)
[2019-10-18] MEDS ORDERED: 0.9 % SODIUM CHLORIDE 10 ML DISP.SYRIN. IV PRN (18:00)
[2019-10-18] MEDS ORDERED: ALBUTEROL SULFATE 2.5 MG/3 ML NEBU. NEB PRN (18:00)
[2019-10-18] MEDS ORDERED: ONDANSETRON PF 4 MG/2 ML VIAL. IV PRN (18:00)
[2019-10-18] MEDS: IV NORMAL SALINE 1000ML BAG 1,000 ML IV SCH (18:00)
[2019-10-18] MEDS ORDERED: ACETAMINOPHEN 325 MG TABLET. PO PRN (18:00)
[2019-10-18] MEDS ORDERED: PIPERACILLIN/TAZOBACTAM 3.375 GM in IV NORMAL SALINE 50ML 50 ML IV SCH (18:00)
--- NOTE | 2019-10-18 18:08 | PHYS DOC ---
Past Medical History Past Medical History: Diabetes-Type I Past Surgical History: No Surgical History Smoking Status: Current Every Day Smoker Alcohol Use: Occasionally Drug Use: Marijuana General Adult EDM: Chief Complaint: HYPOGLYCEMIA HPI: HPI: Patient is a 34 year old male with a history of diabetes and meth abuse who presents after being found down. According to EMS report patient had a seizure in a parking lot. He had a glucose of 27. They were able to get him awake and eating. Upon arrival to the emergency room patient is very confused and unable to answer very many questions. Is not remember what happened. He does not remember if he has been to sleep this morning. Is not sure if he took his insulin this morning or if he took his Lantus last night. Has not sure the last time he used methamphetamines. He has never had a seizure before. He has a mild headache. He denies any other pain. Review of Systems: Review of Systems: General: Denies fever, chills, sweats, fatigue Eyes: Denies drainage, blurred vision HENT: Denies rhinorrhea, sore throat Respiratory: Denies cough, shortness of breath, wheezing Cardiac: Denies edema, palpitations, chest pain GI: Denies abdominal pain, N/V MSK: Denies back pain, neck pain Skin: Denies rash, jaundice Neuro: Denies dizziness. Reports headache Psychiatric: Denies SI/HI Heart Score: Risk Factors: Risk Factors: DM, Current or recent (<one month) smoker, HTN, HLP, family history of CAD, obesity. Risk Scores: Score 0 - 3: 2.5% MACE over next 6 weeks - Discharge Home Score 4 - 6: 20.3% MACE over next 6 weeks - Admit for Clinical Observation Score 7 - 10: 72.7% MACE over next 6 weeks - Early Invasive Strategies Current Medications: Current Medications Medications (Trade) Dose Ordered Sig/Beverly Start Time Stop Time Status Last Admin Dose Admin Acetaminophen (Tylenol Supp) 650 mg PRN Q4HRS PRN 10/18/19 18:00 UNV Acetaminophen (Tylenol) 650 mg PRN Q4HRS PRN 10/18/19 18:00 UNV Albuterol Sulfate (Ventolin Neb Soln) 2.5 mg PRN Q4HRS PRN 10/18/19 18:00 UNV Ceftriaxone Sodium (Rocephin) 1 gm 1X ONCE 10/18/19 16:00 10/18/19 16:01 DC 10/18/19 16:26 1 GM Diphtheria/ Tetanus/Acell Pertussis (ADACEL TDap SYRINGE) 0.5 ml ONCE ONCE 10/18/19 15:15 10/18/19 15:16 DC 10/18/19 16:27 0.5 ML Docusate Sodium (Colace) 100 mg PRN BID PRN 10/18/19 18:00 UNV Gadoterate Meglumine (Dotarem) 19.6 ml 1X ONCE 10/18/19 15:15 10/18/19 15:16 DC 10/18/19 15:21 19.6 ML Guaifenesin (Robitussin) 200 mg PRN Q4HRS PRN 10/18/19 18:00 UNV Levetiracetam 1000 mg/Dextrose 110 ml @ 440 mls/hr 1X ONCE 10/18/19 17:00 10/18/19 17:14 DC 10/18/19 17:12 440 MLS/HR Lorazepam (Ativan) 0.5 mg PRN Q4HRS PRN 10/18/19 18:00 UNV Ondansetron HCl (Zofran) 4 mg PRN Q4HRS PRN 10/18/19 18:00 UNV Piperacillin Sod/ Tazobactam Sod 3.375 gm/Sodium Chloride 50 ml @ 100 mls/hr Q6HRS 10/18/19 18:00 UNV Sodium Monofluorophosphate (Fleet Adult) 133 ml PRN DAILY PRN 10/18/19 18:00 UNV Sodium Chloride 1,000 ml @ 100 mls/hr Q10H 10/18/19 18:00 UNV Sodium Chloride (Normal Saline Flush) 3 ml QSHIFT PRN 10/18/19 18:00 UNV Vancomycin HCl 1.5 gm/Sodium Chloride 500 ml @ 250 mls/hr 1X ONCE 10/18/19 16:00 10/18/19 17:59 UNV Vancomycin HCl 2 gm/Sodium Chloride 500 ml @ 250 mls/hr 1X ONCE 10/18/19 16:00 10/18/19 17:59 DC 10/18/19 16:28 250 MLS/HR Allergies: Allergies: Allergies Coded Allergies Type Severity Reaction Last Updated Verified Sulfa (Sulfonamide Antibiotics) Allergy Intermediate Hives 10/24/15 Yes Physical Exam: PE: Constitutional: Well developed, well nourished, Cooperative, NAD, non-toxic appearing, lethargy HEENT: abrasion to scalp, atraumatic, oropharynx moist, EOMI, PERRL, no drainage from eyes, normal conjunctiva Neck: Supple, normal range of motion, no stridor Cardiovascular: tachycardia, 2+ radial pulses bilaterally, no edema Respiratory: CTA bilaterally, no respiratory distress, no wheezing/crackles Abdomen: Soft, nontender, nondistended, no masses Skin: Warm, dry, abrasions to arm Extremities: No obvious deformities Neurologic: Alert and Oriented x1, motor and sensory function grossly normal, no focal deficits, CN 2-12 intact Psychologic: No SI/HI Current Patient Data: Labs: Laboratory Tests Test 10/18/19 09:45 10/18/19 10:25 10/18/19 11:00 10/18/19 11:30 Glucose (Fingerstick) 242 mg/dL (70-99) H 299 mg/dL (70-99) H White Blood Count 8.5 x10^3/uL (4.0-11.0) Red Blood Count 4.04 x10^6/uL (4.30-5.70) L Hemoglobin 12.0 g/dL (13.0-17.5) L Hematocrit 35.6 % (39.0-53.0) L Mean Corpuscular Volume 88 fL (79-100) Mean Corpuscular Hemoglobin 30 pg (25-35) Mean Corpuscular Hemoglobin Concent 34 g/dL (31-37) Red Cell Distribution Width 13.3 % (11.5-14.5) Platelet Count 208 x10^3/uL (140-400) Neutrophils (%) (Auto) 77 % (31-73) H Lymphocytes (%) (Auto) 14 % (24-48) L Monocytes (%) (Auto) 7 % (0-9) Eosinophils (%) (Auto) 1 % (0-3) Basophils (%) (Auto) 0 % (0-3) Neutrophils # (Auto) 6.6 x10^3/uL (1.8-7.7) Lymphocytes # (Auto) 1.2 x10^3/uL (1.0-4.8) Monocytes # (Auto) 0.6 x10^3/uL (0.0-1.1) Eosinophils # (Auto) 0.1 x10^3/uL (0.0-0.7) Basophils # (Auto) 0.0 x10^3/uL (0.0-0.2) Sodium Level 140 mmol/L (136-145) Potassium Level 3.6 mmol/L (3.5-5.1) Chloride Level 104 mmol/L (98-107) Carbon Dioxide Level 27 mmol/L (21-32) Anion Gap 9 (6-14) Blood Urea Nitrogen 18 mg/dL (8-26) Creatinine 0.9 mg/dL (0.7-1.3) Estimated GFR (Cockcroft-Gault) 95.5 BUN/Creatinine Ratio 20 (6-20) Glucose Level 264 mg/dL (70-99) H Calcium Level 8.6 mg/dL (8.5-10.1) Total Bilirubin 0.1 mg/dL (0.2-1.0) L Aspartate Amino Transferase (AST) 20 U/L (15-37) Alanine Aminotransferase (ALT) 29 U/L (16-63) Alkaline Phosphatase 122 U/L (46-116) H Total Protein 6.3 g/dL (6.4-8.2) L Albumin 2.9 g/dL (3.4-5.0) L Albumin/Globulin Ratio 0.9 (1.0-1.7) L Procalcitonin < 0.10 ng/mL (0.00-0.10) Urine Color Yellow Urine Clarity Clear Urine pH 5.5 (<5.0-8.0) Urine Specific [place] >=1.030 (1.000-1.030) Urine Protein Negative mg/dL (NEG-TRACE) Urine Glucose (UA) >=1000 mg/dL (NEG) Urine Ketones (Stick) Negative mg/dL (NEG) Urine Blood Trace (NEG) Urine Nitrite Negative (NEG) Urine Bilirubin Negative (NEG) Urine Urobilinogen Dipstick 0.2 mg/dL (0.2 mg/dL) Urine Leukocyte Esterase Negative (NEG) Urine RBC 3-5 /HPF (0-2) Urine WBC Occ /HPF (0-4) Urine Squamous Epithelial Cells Few /LPF Urine Bacteria Few /HPF (0-FEW) Urine Mucus Mod /LPF Test 10/18/19 12:22 10/18/19 14:53 10/18/19 16:31 Glucose (Fingerstick) 512 mg/dL (70-99) *H 423 mg/dL (70-99) H 321 mg/dL (70-99) H Laboratory Tests 10/18/19 10:25 Laboratory Tests 10/18/19 10:25 Vital Signs: Vital Signs Date Time Temp Pulse Resp B/P (MAP) Pulse Ox O2 Delivery O2 Flow Rate FiO2 10/18/19 16:54 88 18 128/84 (99) 98 Room Air 10/18/19 09:50 97.2 97.2 EKG: EKG: [] Radiology/Procedures: Radiology/Procedures: [] Course & Med Decision Making: Course & Med Decision Making Pertinent Labs and Imaging studies reviewed. (See chart for details) Patient is a 34-year-old male with past medical history of diabetes and methamphetamine abuse who presents to the emergency room after having a seizure. Initially it appeared that the seizure was secondary to her hypoglycemia, however despite improvement in glucose patient remains confused. He does appear to be otherwise neurologically intact. He is moving all extremities. She does not appear to have major trauma. CT head was ordered and shows new lesions. I have discussed these results with the radiologist who is recommending an e mergent MRI. Lab work is overall unremarkable. MRI shows some multiple areas of concern. I have discussed these with the on-call neurosurgeon and neurologist. Patient will be admitted to the ICU. At this time patient is back to his baseline and fully neurologically intact. Dragon Disclaimer: Nate Disclaimer: This electronic medical record was generated, in whole or in part, using a voice recognition dictation system. Departure Departure Impression: Primary Impression: Meningitis Additional Impressions: Cerebellar hemorrhage Hypoglycemia Methamphetamine abuse Disposition: ADMITTED INPATIENT Condition: GOOD Referrals: NO PCP (PCP) Critical Care Note Total Time (mins): 35 SELENA LIAO MD Oct 18, 2019 18:08
[2019-10-18] MEDS ORDERED: VANCOMYCIN 1GM IVPB FOR OMNI 250 ML IV ONE (18:15)
[2019-10-18] MEDS ORDERED: DEXTROSE 50% 25 GM / 50ML DISP.SYRIN. IV PRN ×2 (18:15→20:00)
[2019-10-18] MEDS: VANCOMYCIN PER PHARMACY MC PRN (18:21)
--- NOTE | 2019-10-18 18:23 | NUR ---
Pharmacy Vancomycin Dosing Note S:Consulted to monitor and dose vancomycin started 10/18/19. O:CHIKI GIBSON is a 34 year old M with r/o Septic emboli. Height: 6 feet, 0 inches Weight: 98.0 kg [place] Body Weight: 73.10 Adjusted Body Weight: 83.06 Dosing Weight: Actual Other Antibiotics: zosyn 4.5 gm q6hrs LABS: Last BUN: 18 Last Creatinine: 0.9 Creatinine Clearance: 138 mL/min Last WBC: 8.5 Last Procalcitonin: < 0.10 Tmax (past 24 hours): 97.2 Microbiology: 10/17: blood cx pending I/O: -- Drug Levels: Last dose given 10/18/19 at 1630 Vancomycin Dosing: Loading Dose: 2000 mg x1 Dosing Weight: Actual Target Trough: 15-20 A: Based on: patient's age, weight and renal function. P: 1. Initiate Vancomycin 1250 mg IV q8h after initial loading dose. 2. Follow up Trough level on 10/19/19 at 1530 3. Pharmacy will continue to monitor, follow and adjust therapy as needed. [facility], 10/18/19 [id number]
[2019-10-18] MEDS ORDERED: INSULIN REGULAR VIAL 100 UNIT in IV NORMAL SALINE 100ML 100 ML IV PRN (20:00)
[2019-10-18] MEDS ORDERED: IV DEXTROSE 5% 250 ML BAG. IV PRN (20:00)
[2019-10-18] MEDS: PIPERACILLIN/TAZOBACTAM 4.5 GM in IV NORMAL SALINE 100ML 100 ML IV SCH (20:27)
[2019-10-18] MEDS: INSULIN LISPRO 300 UNITS/3 ML VIAL. SQ SCH (20:43)
[2019-10-18] MEDS ORDERED: INSULIN LISPRO 300 UNITS/3 ML VIAL. SQ ONE (21:00)
[2019-10-18] MEDS: VANCOMYCIN 1.25 GM in IV NORMAL SALINE 250ML 250 ML IV SCH (23:25)
[2019-10-19] VITALS (24 sets, daily range): BP systolic 94–133; BP diastolic 60–99
[2019-10-19] MEDS: PIPERACILLIN/TAZOBACTAM 4.5 GM in IV NORMAL SALINE 100ML 100 ML IV SCH ×5 (00:23→23:31)
[2019-10-19 04:43] LABS: CREATININE 0.7 mg/dL (0.7-1.3); GFR 127.6
[2019-10-19] MEDS: VANCOMYCIN 1.25 GM in IV NORMAL SALINE 250ML 250 ML IV SCH (07:39)
[2019-10-19] MEDS: INSULIN LISPRO 300 UNITS/3 ML VIAL. SQ SCH ×4 (07:44→16:46)
[2019-10-19] MEDS: VANCOMYCIN PER PHARMACY MC PRN (07:49)
--- NOTE | 2019-10-19 08:18 | PDOC ---
Infectious Disease Note Vital Sign Vital Signs Vital Signs Date Time Temp Pulse Resp B/P (MAP) Pulse Ox O2 Delivery O2 Flow Rate FiO2 10/19/19 06:00 80 16 111/84 (93) 100 Room Air 10/19/19 04:00 98.2 98.2 Labs Lab Laboratory Tests Test 10/18/19 09:45 10/18/19 10:25 10/18/19 10:28 10/18/19 11:00 Glucose (Fingerstick) 242 mg/dL (70-99) 299 mg/dL (70-99) White Blood Count 8.5 x10^3/uL (4.0-11.0) Red Blood Count 4.04 x10^6/uL (4.30-5.70) Hemoglobin 12.0 g/dL (13.0-17.5) Hematocrit 35.6 % (39.0-53.0) Mean Corpuscular Volume 88 fL (79-100) Mean Corpuscular Hemoglobin 30 pg (25-35) Mean Corpuscular Hemoglobin Concent 34 g/dL (31-37) Red Cell Distribution Width 13.3 % (11.5-14.5) Platelet Count 208 x10^3/uL (140-400) Neutrophils (%) (Auto) 77 % (31-73) Lymphocytes (%) (Auto) 14 % (24-48) Monocytes (%) (Auto) 7 % (0-9) Eosinophils (%) (Auto) 1 % (0-3) Basophils (%) (Auto) 0 % (0-3) Neutrophils # (Auto) 6.6 x10^3/uL (1.8-7.7) Lymphocytes # (Auto) 1.2 x10^3/uL (1.0-4.8) Monocytes # (Auto) 0.6 x10^3/uL (0.0-1.1) Eosinophils # (Auto) 0.1 x10^3/uL (0.0-0.7) Basophils # (Auto) 0.0 x10^3/uL (0.0-0.2) Sodium Level 140 mmol/L (136-145) Potassium Level 3.6 mmol/L (3.5-5.1) Chloride Level 104 mmol/L (98-107) Carbon Dioxide Level 27 mmol/L (21-32) Anion Gap 9 (6-14) Blood Urea Nitrogen 18 mg/dL (8-26) Creatinine 0.9 mg/dL (0.7-1.3) Estimated GFR (Cockcroft-Gault) 95.5 BUN/Creatinine Ratio 20 (6-20) Glucose Level 264 mg/dL (70-99) Calcium Level 8.6 mg/dL (8.5-10.1) Total Bilirubin 0.1 mg/dL (0.2-1.0) Aspartate Amino Transf (AST/SGOT) 20 U/L (15-37) Alanine Aminotransferase (ALT/SGPT) 29 U/L (16-63) Alkaline Phosphatase 122 U/L (46-116) Total Protein 6.3 g/dL (6.4-8.2) Albumin 2.9 g/dL (3.4-5.0) Albumin/Globulin Ratio 0.9 (1.0-1.7) Procalcitonin < 0.10 ng/mL (0.00-0.10) HIV (1&2) Antibody Screen Nonreactive (Nonreactive) Test 10/18/19 11:30 10/18/19 12:22 10/18/19 14:53 10/18/19 16:31 Urine Color Yellow Urine Clarity Clear Urine pH 5.5 (<5.0-8.0) Urine Specific [place] >=1.030 (1.000-1.030) Urine Protein Negative mg/dL (NEG-TRACE) Urine Glucose (UA) >=1000 mg/dL (NEG) Urine Ketones (Stick) Negative mg/dL (NEG) Urine Blood Trace (NEG) Urine Nitrite Negative (NEG) Urine Bilirubin Negative (NEG) Urine Urobilinogen Dipstick 0.2 mg/dL (0.2 mg/dL) Urine Leukocyte Esterase Negative (NEG) Urine RBC 3-5 /HPF (0-2) Urine WBC Occ /HPF (0-4) Urine Squamous Epithelial Cells Few /LPF Urine Bacteria Few /HPF (0-FEW) Urine Mucus Mod /LPF Glucose (Fingerstick) 512 mg/dL (70-99) 423 mg/dL (70-99) 321 mg/dL (70-99) Test 10/18/19 20:35 10/19/19 04:10 10/19/19 04:15 10/19/19 07:43 Glucose (Fingerstick) 331 mg/dL (70-99) 88 mg/dL (70-99) 80 mg/dL (70-99) Creatinine 0.7 mg/dL (0.7-1.3) Estimated GFR (Cockcroft-Gault) 127.6 Objective Assessment pt seen, consult dictated Plan Plan of Care / HENRY CASE MD Oct 19, 2019 08:18
[2019-10-19] MEDS ORDERED: ACETAMINOPHEN 325 MG TABLET. PO PRN (08:45)
[2019-10-19] MEDS ORDERED: ACETAMINOPHEN 650 MG SUPP.RECT. PR PRN (08:45)
[2019-10-19] MEDS ORDERED: IOHEXOL 300 MG/ML 100ML VIAL. IV ONE (09:00)
[2019-10-19] MEDS ORDERED: CONTRAST GIVEN. MC PRN (09:00)
--- NOTE | 2019-10-19 09:54 | PDOC2 ---
NEUROLOGY CONSULT Date of Admission Date of Admission DATE: 10/19/19 TIME: 09:43 Reason for Consult Reason for Consult: Seizure, altered mental status Referring Physician Referring Physician: Dr. Gresham Source Source: Chart review, Patient History of Present Illness History of Present Illness The patient is a 34-year-old right-handed male who uses methamphetamine and other drugs. He fell down and hit his head. He had a seizure. He has abnormal head CT and MRI. He denies any prior history of stroke, seizure, or head injury. He does not use intravenous drugs. He feels fine now. Past Medical History Endocrine: Diabetes Past Surgical History Past Surgical History: No pertinent history Family History Family History: No pertinent hx (Family history negative for seizures, he does not know much about his father) Social History Social History He does odd jobs, occasional tobacco, no alcohol, multiple street drugs Current Medications Current Medications Current Medications Sodium Chloride 1,000 ml @ 0 mls/hr 1X ONCE IV Last administered on 10/18/19at 13:22; Start 10/18/19 at 13:15; Stop 10/18/19 at 13:16; Status DC Diphtheria/ Tetanus/Acell Pertussis (ADACEL TDap SYRINGE) 0.5 ml ONCE ONCE VAX IM Last administered on 10/18/19at 16:27; Start 10/18/19 at 15:15; Stop 10/18/19 at 15:16; Status DC Gadoterate Meglumine (Dotarem) 19.6 ml 1X ONCE IVP Last administered on 10/18/19at 15:21; Start 10/18/19 at 15:15; Stop 10/18/19 at 15:16; Status DC Ceftriaxone Sodium (Rocephin) 1 gm 1X ONCE IVP Last administered on 10/18/19at 16:26; Start 10/18/19 at 16:00; Stop 10/18/19 at 16:01; Status DC Vancomycin HCl 1.5 gm/Sodium Chloride 500 ml @ 250 mls/hr 1X ONCE IV ; Start 10/18/19 at 16:00; Stop 10/18/19 at 17:59; Status UNV Vancomycin HCl 2 gm/Sodium Chloride 500 ml @ 250 mls/hr 1X ONCE IV Last admin istered on 10/18/19at 16:28; Start 10/18/19 at 16:00; Stop 10/18/19 at 17:59; Status DC Levetiracetam 1000 mg/Dextrose 110 ml @ 440 mls/hr 1X ONCE IV Last administered on 10/18/19at 17:12; Start 10/18/19 at 17:00; Stop 10/18/19 at 17:14; Status DC Sodium Chloride (Normal Saline Flush) 3 ml QSHIFT PRN IV AFTER MEDS AND BLOOD DRAWS; Start 10/18/19 at 18:00 Sodium Chloride 1,000 ml @ 100 mls/hr Q10H IV Last administered on 10/18/19at 18:00; Start 10/18/19 at 18:00 Ondansetron HCl (Zofran) 4 mg PRN Q4HRS PRN IV NAUSEA/VOMITING; Start 10/18/19 at 18:00 Acetaminophen (Tylenol) 650 mg PRN Q4HRS PRN PO TEMP OVER 100.4F OR MILD PAIN Last administered on 10/19/19at 07:38; Start 10/18/19 at 18:00 Acetaminophen (Tylenol Supp) 650 mg PRN Q4HRS PRN [place] TEMP OVER 100.4F OR MILD PAIN; Start 10/18/19 at 18:00 Sodium Monofluorophosphate (Fleet Adult) 133 ml PRN DAILY PRN [place] CONSTIPATION; Start 10/18/19 at 18:00 Docusate Sodium (Colace) 100 mg PRN BID PRN PO HARD STOOLS; Start 10/18/19 at 18:00 Albuterol Sulfate (Ventolin Neb Soln) 2.5 mg PRN Q4HRS PRN NEB SHORTNESS OF BREATH; Start 10/18/19 at 18:00 Guaifenesin (Robitussin) 200 mg PRN Q4HRS PRN PO COUGH; Start 10/18/19 at 18:00 Lorazepam (Ativan) 0.5 mg PRN Q4HRS PRN PO ANXIETY / AGITATION; Start 10/18/19 at 18:00 Piperacillin Sod/ Tazobactam Sod 3.375 gm/Sodium Chloride 50 ml @ 100 mls/hr Q6HRS IV ; Start 10/18/19 at 18:00; Status UNV Insulin Human Lispro (HumaLOG) 0-7 UNITS TIDWMEALS SQ ; Start 10/19/19 at 08:00 Dextrose (Dextrose 50%-Water Syringe) 12.5 gm PRN Q15MIN PRN IV SEE COMMENTS; Start 10/18/19 at 18:15; Status Cancel Vancomycin HCl (Vanco Per Pharmacy) 1 each PRN DAILY PRN MC SEE COMMENTS Last administered on 10/19/19at 07:49; Start 10/18/19 at 18:15; Stop 10/19/19 at 09:37; Status DC Vancomycin HCl 250 ml @ 250 mls/hr 1X ONCE IV ; Start 10/18/19 at 18:15; Stop 10/18/19 at 19:14; Status UNV Piperacillin Sod/ Tazobactam Sod 4.5 gm/Sodium Chloride 100 ml @ 200 mls/hr Q6HRS IV Last administered on 10/19/19at 05:44; Start 10/18/19 at 18:00 Vancomycin HCl 1.25 gm/Sodium Chloride 250 ml @ 167 mls/hr Q8H IV Last administered on 10/19/19at 07:39; Start 10/19/19 at 00:00; Stop 10/19/19 at 09:34; Status DC Vancomycin HCl (Vancomycin Trough Level) 1 each 1X ONCE MC ; Start 10/19/19 at 15:30; Stop 10/19/19 at 09:37; Status DC Insulin Human Regular 100 unit/ Sodium Chloride 101 ml @ 0 mls/hr CONT PRN IV SEE I/O RECORD; Start 10/18/19 at 20:00 Dextrose (Dextrose 50%-Water Syringe) 12.5 gm PRN Q15MIN PRN IV LOW BLOOD SUGAR; Start 10/18/19 at 20:00 Dextrose (Iv Dextrose 5%) 250 ml PRN Q15MIN PRN IV LOW BLOOD SUGAR; Start 10/18/19 at 20:00 Insulin Human Lispro (HumaLOG) 7 units 1X ONCE SQ Last administered on 10/18/19at 21:00; Start 10/18/19 at 21:00; Stop 10/18/19 at 21:01; Status DC Acetaminophen (Tylenol) 650 mg PRN Q6HRS PRN PO TEMP > 100.4F; Start 10/19/19 at 08:45 Acetaminophen (Tylenol Supp) 650 mg PRN Q4HRS PRN [place] TEMP > 100.4F; Start 10/19/19 at 08:45 Iohexol (Omnipaque 300 Mg/ml) 75 ml 1X ONCE IV Last administered on 10/19/19at 09:00; Start 10/19/19 at 09:00; Stop 10/19/19 at 09:01; Status DC Info (CONTRAST GIVEN -- Rx MONITORING) 1 each PRN DAILY PRN MC SEE COMMENTS; Start 10/19/19 at 09:00; Stop 10/21/19 at 08:59 Active Scripts Active Humalog (Insulin Lispro) 100 Unit/1 Ml Insuln.pen 10 Units SQ TIDWMEALS 30 Days Lantus (Insulin Glargine,Hum.rec.anlog) 100 Unit/1 Ml Vial 20 Unit SQ QHS 30 Days Klor-Con M20 (Potassium Chloride) 20 Meq Tab.er.prt 20 Meq PO DAILYWBKFT 10 Days Allergies Allergies: Coded Allergies: Sulfa (Sulfonamide Antibiotics) (Verified Allergy, Intermediate, Hives, 10/24/15) ROS Review of System Negative for fever, chills, weight loss, shortness of breath, chest pain, indigestion, hematochezia, melena, and dysuria. Full 14-point review of systems is negative. Physical Exam Physical Examination General: Well-developed, well-nourished white male in no acute distress HEENT: Normocephalic andatraumatic.Temporal arteriespulsatile and nontender. Neck: Supple without bruit, no meningismus Musculoskeletal: Stability:see neurologic. Gait exam:see neurologic. Tone:see neurologic.Strength:see neurologic. Neurological: Mental Status:intact, orientation, memory, attention span/concentration, language, fund of knowledge normal. Cranial Nerves:Pupils equal and reactive to light, extraocular movements areintact, visual cole are full to confrontation. Facial sensation is normal. There is no facial asymmetry. Vestibulo-ocular reflex is intact. Palate elevates and tongue protrudes in midline. All other cranial related problems are negative except as mentioned before.Reflexes:2+ and symmetric with flexor plantar responses. Motor:5/5 strength with normal tone and bulk. Coordination:Finger-nose finger and avwn-wg-[id number] testing are normal. Rapid alternating movements and fine finger movements are intact. Gait:not tested. Sensory:Normal pinprick, vibration, light touch, proprioception. Vitals VITALS Vital Signs Date Time Temp Pulse Resp B/P (MAP) Pulse Ox O2 Delivery O2 Flow Rate FiO2 10/19/19 09:00 82 16 111/83 (92) 98 Room Air 10/19/19 08:00 98.3 98.3 Labs Labs Laboratory Tests Test 10/18/19 09:45 10/18/19 10:25 10/18/19 10:28 10/18/19 11:00 Glucose (Fingerstick) 242 mg/dL (70-99) 299 mg/dL (70-99) White Blood Count 8.5 x10^3/uL (4.0-11.0) Red Blood Count 4.04 x10^6/uL (4.30-5.70) Hemoglobin 12.0 g/dL (13.0-17.5) Hematocrit 35.6 % (39.0-53.0) Mean Corpuscular Volume 88 fL (79-100) Mean Corpuscular Hemoglobin 30 pg (25-35) Mean Corpuscular Hemoglobin Concent 34 g/dL (31-37) Red Cell Distribution Width 13.3 % (11.5-14.5) Platelet Count 208 x10^3/uL (140-400) Neutrophils (%) (Auto) 77 % (31-73) Lymphocytes (%) (Auto) 14 % (24-48) Monocytes (%) (Auto) 7 % (0-9) Eosinophils (%) (Auto) 1 % (0-3) Basophils (%) (Auto) 0 % (0-3) Neutrophils # (Auto) 6.6 x10^3/uL (1.8-7.7) Lymphocytes # (Auto) 1.2 x10^3/uL (1.0-4.8) Monocytes # (Auto) 0.6 x10^3/uL (0.0-1.1) Eosinophils # (Auto) 0.1 x10^3/uL (0.0-0.7) Basophils # (Auto) 0.0 x10^3/uL (0.0-0.2) Sodium Level 140 mmol/L (136-145) Potassium Level 3.6 mmol/L (3.5-5.1) Chloride Level 104 mmol/L (98-107) Carbon Dioxide Level 27 mmol/L (21-32) Anion Gap 9 (6-14) Blood Urea Nitrogen 18 mg/dL (8-26) Creatinine 0.9 mg/dL (0.7-1.3) Estimated GFR (Cockcroft-Gault) 95.5 BUN/Creatinine Ratio 20 (-20) Glucose Level 264 mg/dL (70-99) Calcium Level 8.6 mg/dL (8.5-10.1) Total Bilirubin 0.1 mg/dL (0.2-1.0) Aspartate Amino Transf (AST/SGOT) 20 U/L (15-37) Alanine Aminotransferase (ALT/SGPT) 29 U/L (16-63) Alkaline Phosphatase 122 U/L (46-116) Total Protein 6.3 g/dL (6.4-8.2) Albumin 2.9 g/dL (3.4-5.0) Albumin/Globulin Ratio 0.9 (1.0-1.7) Procalcitonin < 0.10 ng/mL (0.00-0.10) HIV (1&2) Antibody Screen Nonreactive (Nonreactive) Test 10/18/19 11:30 10/18/19 12:22 10/18/19 14:53 10/18/19 16:31 Urine Color Yellow Urine Clarity Clear Urine pH 5.5 (<5.0-8.0) Urine Specific [place] >=1.030 (1.000-1.030) Urine Protein Negative mg/dL (NEG-TRACE) Urine Glucose (UA) >=1000 mg/dL (NEG) Urine Ketones (Stick) Negative mg/dL (NEG) Urine Blood Trace (NEG) Urine Nitrite Negative (NEG) Urine Bilirubin Negative (NEG) Urine Urobilinogen Dipstick 0.2 mg/dL (0.2 mg/dL) Urine Leukocyte Esterase Negative (NEG) Urine RBC 3-5 /HPF (0-2) Urine WBC Occ /HPF (0-4) Urine Squamous Epithelial Cells Few /LPF Urine Bacteria Few /HPF (0-FEW) Urine Mucus Mod /LPF Glucose (Fingerstick) 512 mg/dL (70-99) 423 mg/dL (70-99) 321 mg/dL (70-99) Test 10/18/19 20:35 10/19/19 04:10 10/19/19 04:15 10/19/19 07:43 Glucose (Fingerstick) 331 mg/dL (70-99) 88 mg/dL (70-99) 80 mg/dL (70-99) Creatinine 0.7 mg/dL (0.7-1.3) Estimated GFR (Cockcroft-Gault) 127.6 Laboratory Tests Test 10/18/19 09:45 10/18/19 10:25 10/18/19 10:28 10/18/19 11:00 Glucose (Fingerstick) 242 mg/dL (70-99) 299 mg/dL (70-99) White Blood Count 8.5 x10^3/uL (4.0-11.0) Red Blood Count 4.04 x10^6/uL (4.30-5.70) Hemoglobin 12.0 g/dL (13.0-17.5) Hematocrit 35.6 % (39.0-53.0) Mean Corpuscular Volume 88 fL (79-100) Mean Corpuscular Hemoglobin 30 pg (25-35) Mean Corpuscular Hemoglobin Concent 34 g/dL (31-37) Red Cell Distribution Width 13.3 % (11.5-14.5) Platelet Count 208 x10^3/uL (140-400) Neutrophils (%) (Auto) 77 % (31-73) Lymphocytes (%) (Auto) 14 % (24-48) Monocytes (%) (Auto) 7 % (0-9) Eosinophils (%) (Auto) 1 % (0-3) Basophils (%) (Auto) 0 % (0-3) Neutrophils # (Auto) 6.6 x10^3/uL (1.8-7.7) Lymphocytes # (Auto) 1.2 x10^3/uL (1.0-4.8) Monocytes # (Auto) 0.6 x10^3/uL (0.0-1.1) Eosinophils # (Auto) 0.1 x10^3/uL (0.0-0.7) Basophils # (Auto) 0.0 x10^3/uL (0.0-0.2) Sodium Level 140 mmol/L (136-145) Potassium Level 3.6 mmol/L (3.5-5.1) Chloride Level 104 mmol/L (98-107) Carbon Dioxide Level 27 mmol/L (21-32) Anion Gap 9 (6-14) Blood Urea Nitrogen 18 mg/dL (8-26) Creatinine 0.9 mg/dL (0.7-1.3) Estimated GFR (Cockcroft-Gault) 95.5 BUN/Creatinine Ratio 20 (6-20) Glucose Level 264 mg/dL (70-99) Calcium Level 8.6 mg/dL (8.5-10.1) Total Bilirubin 0.1 mg/dL (0.2-1.0) Aspartate Amino Transf (AST/SGOT) 20 U/L (15-37) Alanine Aminotransferase (ALT/SGPT) 29 U/L (16-63) Alkaline Phosphatase 122 U/L (46-116) Total Protein 6.3 g/dL (6.4-8.2) Albumin 2.9 g/dL (3.4-5.0) Albumin/Globulin Ratio 0.9 (1.0-1.7) Procalcitonin < 0.10 ng/mL (0.00-0.10) HIV (1&2) Antibody Screen Nonreactive (Nonreactive) Test 10/18/19 11:30 10/18/19 12:22 10/18/19 14:53 10/18/19 16:31 Urine Color Yellow Urine Clarity Clear Urine pH 5.5 (<5.0-8.0) Urine Specific [place] >=1.030 (1.000-1.030) Urine Protein Negative mg/dL (NEG-TRACE) Urine Glucose (UA) >=1000 mg/dL (NEG) Urine Ketones (Stick) Negative mg/dL (NEG) Urine Blood Trace (NEG) Urine Nitrite Negative (NEG) Urine Bilirubin Negative (NEG) Urine Urobilinogen Dipstick 0.2 mg/dL (0.2 mg/dL) Urine Leukocyte Esterase Negative (NEG) Urine RBC 3-5 /HPF (0-2) Urine WBC Occ /HPF (0-4) Urine Squamous Epithelial Cells Few /LPF Urine Bacteria Few /HPF (0-FEW) Urine Mucus Mod /LPF Glucose (Fingerstick) 512 mg/dL (70-99) 423 mg/dL (70-99) 321 mg/dL (70-99) Test 10/18/19 20:35 10/19/19 04:10 10/19/19 04:15 10/19/19 07:43 Glucose (Fingerstick) 331 mg/dL (70-99) 88 mg/dL (70-99) 80 mg/dL (70-99) Creatinine 0.7 mg/dL (0.7-1.3) Estimated GFR (Cockcroft-Gault) 127.6 Images Images BRAIN WO/W CONTRAST Date: 10/18/2019 11:08 AM Indication: Reason: new lesions on CT head, SEIZURE. History of intravenous drug abuse. Comparison: CT 10/18/2019. Technique: Multiplanar multisequence MRI of the brain was performed with and without intravenous contrast using the standard protocol. 19 cc Dotarem contrast was administered intravenously during the exam. Findings: Small area of restricted diffusion in the right posterior frontal lobe. Small area of cortical FLAIR hyperintensity and gyriform enhancement in the right frontal lobe. Leptomeningeal enhancement and failure of FLAIR CSF suppression in the right parieto-occipital region. The ventricles are normal in size and configuration without hydrocephalus. The scalp and calvarium are normal. The pituitary and sella are normal. No Chiari malformation. The visualized upper cervical spine is normal. The visualized orbits and globes are normal. The visualized paranasal sinuses are clear. Right mastoid fluid. Normal flow voids within the vertebral, basilar, and internal carotid arteries indicating patency. IMPRESSION: Small area of acute to subacute infarct in the right posterior frontal lobe. Additional small area of right frontal cortical FLAIR hyperintensity and gyriform enhancement, likely subacute infarct. Right parieto-occipital leptomeningeal enhancement and failure of FLAIR CSF suppression, suspicious for meningitis. Small area of left cerebellar hemorrhage with postcontrast enhancement. Consider meningitis with areas of acute/subacute ischemia and hemorrhage secondary to septic emboli. Areas of ischemia and hemorrhage could also be secondary to intravenous drug abuse. No abscesses are seen. CT HEAD WO CONTRAST Indication: Reason: seizure, closed head injury / Spl. Instructions: / History: Exposure: One or more of the following individualized dose reduction techniques were utilized for this examination: 1. Automated exposure control 2. Adjustment of the mA and/or kV according to patient size 3. Use of iterative reconstruction technique. Technique: Standard imaging without intravenous contrast. Comparison: 04/07/2019. FINDINGS: No evidence of acute intracranial hemorrhage, mass effect, midline shift or abnormal extra-axial fluid collection. Area of low-density is now identified in left cerebellum, measuring about 12 mm diameter, and not seen on the prior exam. One or 2 tiny areas of of low-attenuation in the right periventricular white matter, not definitely seen previously. Series 2, image 20 and 21. Partially visualized paranasal sinuses are clear. Opacity within the right mastoid air cells is similar to prior study. No evidence of depressed skull fracture. The orbits appear unremarkable. No significant scalp hematoma. IMPRESSION: 1. Development of a low-density lesion of the left cerebellum. There has also been development of a couple of tiny low-density foci within the right periventricular white matter. Given the history of intravenous drug use as per Dr. Loyd, abscess or septic emboli could be considered. However, appearance is nonspecific and other etiologies such as ischemia of indeterminate age or inflammatory etiology are also possible. Recommend MR of the brain with and without contrast for further evaluation. The findings and recommendations were discussed with Dr. Loyd in the emergency room by telephone at 11:10 AM. 2. No evidence of acute intracranial hemorrhage. Assessment/Plan Assessment/Plan Impression: Right posterior frontal lobe, right frontal cortical subacute infarct. Small area of left cerebellar hemorrhage Right parieto-occipital leptomeningeal enhancement, suspicious for meningitis, but no clinical sign of meningitis. Multiple substance use, urine drug screen not ordered Recommendations: CT angiogram Hold on LP UDS Rehab modalities Echocardiogram Additional studies depending on results Neurosurgery is on case Also discussed with Dr. Blair. Thank you for letting me help with the patient's care. JANESSA DURAN MD Oct 19, 2019 09:54
--- NOTE | 2019-10-19 10:03 | PDOC ---
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 History of Present Illness History of Present Illness 10/19/2019 Patient seen and examined in the ICU He was originally resting but awoke and was pleasant Discussed with RN Chart reviewed Vitals/I&O Vitals/I&O: Vital Signs Date Time Temp Pulse Resp B/P (MAP) Pulse Ox O2 Delivery O2 Flow Rate FiO2 10/19/19 09:00 82 16 111/83 (92) 98 Room Air 10/19/19 08:00 98.3 98.3 I & O 10/18/19 10/18/19 10/19/19 15:00 23:00 07:00 Intake Total 1000 ml 810 ml 1140 ml Output Total 600 ml 800 ml Balance 1000 ml 210 ml 340 ml Physical Exam General: Alert, Oriented X3, Cooperative, No acute distress Lungs: Clear Abdomen: Normal bowel sounds, Soft Extremities: No cyanosis Labs Labs: Laboratory Tests Test 10/18/19 10:25 10/18/19 10:28 10/18/19 11:00 10/18/19 11:30 White Blood Count 8.5 x10^3/uL (4.0-11.0) Red Blood Count 4.04 x10^6/uL (4.30-5.70) Hemoglobin 12.0 g/dL (13.0-17.5) Hematocrit 35.6 % (39.0-53.0) Mean Corpuscular Volume 88 fL (79-100) Mean Corpuscular Hemoglobin 30 pg (25-35) Mean Corpuscular Hemoglobin Concent 34 g/dL (31-37) Red Cell Distribution Width 13.3 % (11.5-14.5) Platelet Count 208 x10^3/uL (140-400) Neutrophils (%) (Auto) 77 % (31-73) Lymphocytes (%) (Auto) 14 % (24-48) Monocytes (%) (Auto) 7 % (0-9) Eosinophils (%) (Auto) 1 % (0-3) Basophils (%) (Auto) 0 % (0-3) Neutrophils # (Auto) 6.6 x10^3/uL (1.8-7.7) Lymphocytes # (Auto) 1.2 x10^3/uL (1.0-4.8) Monocytes # (Auto) 0.6 x10^3/uL (0.0-1.1) Eosinophils # (Auto) 0.1 x10^3/uL (0.0-0.7) Basophils # (Auto) 0.0 x10^3/uL (0.0-0.2) Sodium Level 140 mmol/L (136-145) Potassium Level 3.6 mmol/L (3.5-5.1) Chloride Level 104 mmol/L (98-107) Carbon Dioxide Level 27 mmol/L (21-32) Anion Gap 9 (6-14) Blood Urea Nitrogen 18 mg/dL (8-26) Creatinine 0.9 mg/dL (0.7-1.3) Estimated GFR (Cockcroft-Gault) 95.5 BUN/Creatinine Ratio 20 (6-20) Glucose Level 264 mg/dL (70-99) Calcium Level 8.6 mg/dL (8.5-10.1) Total Bilirubin 0.1 mg/dL (0.2-1.0) Aspartate Amino Transf (AST/SGOT) 20 U/L (15-37) Alanine Aminotransferase (ALT/SGPT) 29 U/L (16-63) Alkaline Phosphatase 122 U/L (46-116) Total Protein 6.3 g/dL (6.4-8.2) Albumin 2.9 g/dL (3.4-5.0) Albumin/Globulin Ratio 0.9 (1.0-1.7) Procalcitonin < 0.10 ng/mL (0.00-0.10) HIV (1&2) Antibody Screen Nonreactive (Nonreactive) Glucose (Fingerstick) 299 mg/dL (70-99) Urine Color Yellow Urine Clarity Clear Urine pH 5.5 (<5.0-8.0) Urine Specific [place] >=1.030 (1.000-1.030) Urine Protein Negative mg/dL (NEG-TRACE) Urine Glucose (UA) >=1000 mg/dL (NEG) Urine Ketones (Stick) Negative mg/dL (NEG) Urine Blood Trace (NEG) Urine Nitrite Negative (NEG) Urine Bilirubin Negative (NEG) Urine Urobilinogen Dipstick 0.2 mg/dL (0.2 mg/dL) Urine Leukocyte Esterase Negative (NEG) Urine RBC 3-5 /HPF (0-2) Urine WBC Occ /HPF (0-4) Urine Squamous Epithelial Cells Few /LPF Urine Bacteria Few /HPF (0-FEW) Urine Mucus Mod /LPF Test 10/18/19 12:22 10/18/19 14:53 10/18/19 16:31 10/18/19 20:35 Glucose (Fingerstick) 512 mg/dL (70-99) 423 mg/dL (70-99) 321 mg/dL (70-99) 331 mg/dL (70-99) Test 10/19/19 04:10 10/19/19 04:15 10/19/19 07:43 Creatinine 0.7 mg/dL (0.7-1.3) Estimated GFR (Cockcroft-Gault) 127.6 Glucose (Fingerstick) 88 mg/dL (70-99) 80 mg/dL (70-99) Review of Systems Review of Systems: Complains of headache Assessment and Plan Assessmemt and Plan Problems Medical Problems: (1) Cerebellar hemorrhage Status: Acute (2) Hypoglycemia Status: Acute (3) Meningitis Status: Acute Polysubstance abuse Seizure Fall with closed head 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 if consultants agree Home meds DVT prophylaxis He needs to stop doing the drugs Appreciate subspecialist input Prognosis guarded Total time 31 Comment Review of Relevant I have reviewed the following items jaleesa (where applicable) has been applied. Medications: Current Medications Medications (Trade) Dose Ordered Sig/[place]ly Route PRN Reason Start Time Stop Time Status Last Admin Dose Admin Sodium Chloride 1,000 ml @ 0 mls/hr 1X ONCE IV 10/18/19 13:15 10/18/19 13:16 DC 10/18/19 13:22 Diphtheria/ Tetanus/Acell Pertussis (ADACEL TDap SYRINGE) 0.5 ml ONCE ONCE VAX IM 10/18/19 15:15 10/18/19 15:16 DC 10/18/19 16:27 Gadoterate Meglumine (Dotarem) 19.6 ml 1X ONCE IVP 10/18/19 15:15 10/18/19 15:16 DC 10/18/19 15:21 Ceftriaxone Sodium (Rocephin) 1 gm 1X ONCE IVP 10/18/19 16:00 10/18/19 16:01 DC 10/18/19 16:26 Vancomycin HCl 2 gm/Sodium Chloride 500 ml @ 250 mls/hr 1X ONCE IV 10/18/19 16:00 10/18/19 17:59 DC 10/18/19 16:28 Levetiracetam 1000 mg/Dextrose 110 ml @ 440 mls/hr 1X ONCE IV 10/18/19 17:00 10/18/19 17:14 DC 10/18/19 17:12 Sodium Chloride 1,000 ml @ 100 mls/hr Q10H IV 10/18/19 18:00 10/18/19 18:00 Acetaminophen (Tylenol) 650 mg PRN Q4HRS PRN PO TEMP OVER 100.4F OR MILD PAIN 10/18/19 18:00 10/19/19 07:38 Vancomycin HCl (Vanco Per Pharmacy) 1 each PRN DAILY PRN MC SEE COMMENTS 10/18/19 18:15 10/19/19 09:37 DC 10/19/19 07:49 Piperacillin Sod/ Tazobactam Sod 4.5 gm/Sodium Chloride 100 ml @ 200 mls/hr Q6HRS IV 10/18/19 18:00 10/19/19 05:44 Vancomycin HCl 1.25 gm/Sodium Chloride 250 ml @ 167 mls/hr Q8H IV 10/19/19 00:00 10/19/19 09:34 DC 10/19/19 07:39 Insulin Human Lispro (HumaLOG) 7 units 1X ONCE SQ 10/18/19 21:00 10/18/19 21:01 DC 10/18/19 21:00 Iohexol (Omnipaque 300 Mg/ml) 75 ml 1X ONCE IV 10/19/19 09:00 10/19/19 09:01 DC 10/19/19 09:00 Justicifation of Admission Dx: Justifications for Admission: Justification of Admission Dx: Yes Acute Hemorrhagic Stroke: Acute Hemorrhagic Stroke HERNAN CLEMONS III DO Oct 19, 2019 10:03
--- NOTE | 2019-10-19 10:15 | CONS ---
DATE OF CONSULTATION: 10/19/2019 REQUESTING PHYSICIAN: Riley Gresham MD REASON FOR CONSULTATION: Questionable meningitis. HISTORY OF PRESENT ILLNESS: This is a 34-year-old gentleman who actually was found down. The roommate called ambulance and the patient was brought in. The patient did have a hypoglycemia. The patient hit the head as he fell down and workup showed that he had a CT and then MRI showed small areas of acute to subacute infarct in the right posterior frontal lobe, additional small areas of right frontal cortical flair image likely subacute infarct, right parietooccipital leptomeningeal enhancement, small area of cerebellar hemorrhage, left cerebellar hemorrhage. The patient has been receiving vancomycin and Zosyn and consult has been requested. The patient did receive treatment for hypoglycemia. The patient is now alert, awake and appropriate. The patient denies any complaints other than pain at the scalp on the left side where he fell and hit the head. Denies any nausea, vomiting, diarrhea. Denies any chest pain, shortness of breath, abdominal pain, urinary symptoms or bowel symptoms. The patient does have headache as I mentioned where he has hit the left side of the scalp. The patient did not have any fever and before this happened, he did not have any symptoms or complaints. PAST MEDICAL HISTORY: Positive for diabetes. The patient is on insulin. SOCIAL HISTORY: Positive for marijuana and crystal meth. The patient smokes. Does not do IV drug use, he says. The patient does also smoke cigarette. Occasional alcohol use. ALLERGIES: LISTED ALLERGIC TO SULFA, CAUSE A RASH. CURRENT MEDICATIONS: Reviewed. REVIEW OF SYSTEMS: As per HPI, all other systems reviewed and are negative. PHYSICAL EXAMINATION: GENERAL: Alert, oriented gentleman, not in distress. VITAL SIGNS: Stable, afebrile. HEENT: Both pupils are round and reacting. No conjunctival lesion, no lesion in the mouth. NECK: Supple, no JVP, no lymphadenopathy. LUNGS: Clear. HEART: S1, S2 regular. ABDOMEN: Soft, nontender, no organomegaly. EXTREMITIES: No edema, cyanosis. SKIN: Unremarkable other than on the scalp on the left side, he does have a bruise visible on the left side of the head. The patient does not have any peripheral stigmata for endocarditis. NEUROLOGIC: The patient is neurologically alert, awake and appropriate. No focal neurologic deficit. Meningeal signs, Kernig's and Brudzinski signs are negative. LABORATORY DATA: White count is 8.5, hemoglobin 12.0, platelets are normal. BUN and creatinine is normal. The patient's blood sugar has now rebounded up to even 500. Urinalysis unremarkable. HIV done, which was negative and MRI of the brain as I mentioned in the HPI. IMPRESSION: 1. Hypoglycemia, probably related to insulin and he did not eat probably in timely fashion, especially during the crystal meth. 2. Drug use, though denies any IV drug use. 3. Status post fall with a scalp contusion and appears to be intracranial hemorrhage. There is no clinical evidence or suspicion for meningitis. 4. Diabetes mellitus. RECOMMENDATIONS: We will discontinue vancomycin today and hopefully should be able to discontinue Zosyn tomorrow as the stability of the patient is seen for another day or so. Cultures have been taken that we will follow. Supportive care. I did discuss with neurologist, Dr. Flower and he concurs. We will continue to follow. Thank you very much, Dr. Gresham, for giving me the opportunity to participate in this patient's care. HENRY CASE MD DR: DENNYS/thalia JOB#: [id number] / [id number]
[2019-10-19 10:19] LABS: BARBITURATES NEG (NEG); BENZODIAZEPINES NEG (NEG); CANNABINOIDS POS (NEG); COCAINE NEG (NEG); METHADONE NEG (NEG); OPIATES NEG (NEG); PHENCYCLIDINE NEG (NEG)
--- NOTE | 2019-10-19 10:20 | RAD ---
CT ANGIOGRAPHY HEAD AND NECK History:Reason: mult strokes, drug abuse, r/o vasculitis / Spl. Instructions: IV OMNI 300 75 MLS / History: Technique: After bolus of intravenous contrast, volumetric CT data acquisition was acquired of the head and neck. Multiplanar reconstruction images to include MIP and 3-D reconstruction images are submitted. Exposure: One or more of the following individualized dose reduction techniques were utilized for this examination: 1. Automated exposure control 2. Adjustment of the mA and/or kV according to patient size 3. Use of iterative reconstruction technique. Comparison: CT head October 18, 2019. Brain MRI October 18, 2019. Any determination of stenosis is based on NASCET criteria. Head CTA: ICA: No stenosis, occlusion or aneurysm. MCA: No stenosis, occlusion or aneurysm. ZAFAR: No stenosis, occlusion or aneurysm. BARBER TOOL SHARPENER: No stenosis, occlusion or aneurysm. Basilar artery: No stenosis, occlusion or aneurysm. Distal vertebral arteries: No stenosis, occlusion or aneurysm. Patent dural venous sinuses. Right mastoid and middle ear opacification. Multifocal carious and tension with periodontal disease. Secretions within the left inferior maxillary sinus. Ethmoid sinus mucosal thickening. CT angiogram neck: Aortic arch: Conventional arch anatomy. Common carotid arteries: No stenosis, occlusion or dissection. Internal carotid arteries: No stenosis, occlusion or dissection. External carotid arteries: Patent Vertebral arteries: No stenosis, occlusion or dissection. 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 Dominant right vertebral artery. Imaged lung apices are unremarkable. Soft tissues appear normal. Bones: Linear sclerosis extending through T4 superior vertebral body with minimal anterior height loss. Impression: 1. No arterial stenosis or occlusion within the head or neck. 2. Linear sclerosis through T4 superior vertebral body, may represent slight compression fracture. Recommend correlation with point tenderness. MRI can better evaluate if clinically warranted. Electronically signed by: Brad Abraham DO (10/19/2019 10:16 AM) [facility]
[2019-10-19 10:22] LABS: AMPHETAMINE/METHAMPHETAMINE POS (NEG)
[2019-10-19] MEDS: IV NORMAL SALINE 1000ML BAG 1,000 ML IV SCH (10:47)
--- NOTE | 2019-10-19 11:07 | NUR ---
SS following for discharge planning. SS reviewed pt chart and discussed with pt RN. Pt is from home and is currently on room air. Pt positive for Methamphetamine and THC. Pt had fall at home and has brain bleed. No surgical intervention at this time. Pt on IV Zosyn. PAT team referral made for evaluation and recommendations. Pt is self pay pt. SS will continue to follow for discharge planning.
--- NOTE | 2019-10-19 11:17 | CARD ---
MR#: [id number] Date of Study: 10/19/2019 Ordering Physician: SELENA LIAO, Referring Physician: SELENA LIAO, Tech: Elly Escoto ANNA APPROVED REPORT EXAM: Two-dimensional and M-mode echocardiogram with Doppler and color Doppler. Other Information Quality : Good INDICATION Infection:Rule out subacute bacterial endocarditis 2D DIMENSIONS RVDd3.0 (2.9-3.5cm)Left Atrium(2D)3.3 (1.6-4.0cm) IVSd1.0 (0.7-1.1cm)Aortic Root(2D)3.2 (2.0-3.7cm) LVDd4.4 (3.9-5.9cm)LVOT Diameter2.2 (1.8-2.4cm) PWd0.8 (0.7-1.1cm)LVDs3.0 (2.5-4.0cm) FS (%) 32.0 %SV53.5 ml LVEF(%)60.3 (>50%) Aortic Valve AoV Peak Pedro.110.1cm/sAoV VTI20.0cm AO Peak GR.4.9mmHgLVOT VTI 16.51cm AO Mean GR.3mmHgAVA (VTI)3.20cm2 Mitral Valve MV E Wxmezfvv11.1cm/sMV DECEL [id number] MV A Ellfmuow19.9cm/sE/A Ratio1.3 TDI Lateral E' P. V14.29cm/sMedial E' P. V11.07cm/s E/Lateral E'5.2E/Medial E'6.7 Pulmonary Vein S1 Mrkphwyt29.8cm/sS2 Vcmzxwwx72.20cm/s D2 Tbzymkxo66.2cm/s LEFT VENTRICLE The left ventricle is normal size. There is normal left ventricular wall thickness. The left ventricu lar systolic function is normal. The Ejection Fraction is 55-60%. There is normal LV segmental wall m otion. The left ventricular diastolic function and filling is normal for age. RIGHT VENTRICLE The right ventricle is normal size. The right ventricular systolic function is normal. ATRIA The left atrium size is normal. The right atrium size is normal. The interatrial septum is intact wit h no evidence for an atrial septal defect or patent foramen ovale as noted on 2-D or Doppler imaging. AORTIC VALVE The aortic valve is normal in structure and function. Doppler and Color Flow revealed no significant aortic regurgitation. There is no significant aortic valvular stenosis. MITRAL VALVE The mitral valve is normal in structure and function. There is no evidence of mitral valve prolapse. There is no mitral valve stenosis. Doppler and Color-flow revealed trace mitral regurgitation. TRICUSPID VALVE The tricuspid valve is normal in structure and function. Doppler and Color Flow revealed trace tricus pid regurgitation. There is no tricuspid valve stenosis. PULMONIC VALVE The pulmonary valve is normal in structure and function. Doppler and Color Flow revealed trace pulmon ic valvular regurgitation. There is no pulmonic valvular stenosis. GREAT VESSELS The aortic root is normal in size. The ascending aorta is in the upper limits of normal at 3.4 cm. Th e IVC is normal in size and collapses >50% with inspiration. PERICARDIAL EFFUSION There is no evidence of significant pericardial effusion. Critical Notification Critical Value: No <Conclusion> The left ventricular systolic function is normal. The Ejection Fraction is 55-60%. There is normal LV segmental wall motion. Trace mitral regurgitation. Trace tricuspid regurgitation. There is no evidence of significant pericardial effusion. Signed by : Chavo Haddad, Electronically Approved : 10/19/2019 11:16:48
--- NOTE | 2019-10-19 12:41 | PDOC2 ---
[facility]AN [facility]LE EQUIPMENT SCHEDULER 10/19/19 1241: CARDIAC CONSULT DATE OF CONSULT Date of Consult DATE: 10/19/19 TIME: 12:41 REASON FOR CONSULT Reason for Consult: endocarditis REFERRING PHYSICIAN Referring Physician: Evert SOURCE Source: Chart review, Patient HISTORY OF PRESENT ILLNESS HISTORY OF PRESENT ILLNESS This is a 34 yo male admitted for complains of passing out and fall. He lives with room mate and apparently used meth 2 hours prior to being found on the floor. He smokes meth. There was incontinence associated with his fall. EMS was called by his friend and noted that he was hypoglycemic and actually has IDDM. It is unclear what his symptoms was leading to him being on the floor but he told it might seizure. His brain MRI noted with possible infarct, meningitis and hemorrhage lesions but unclear diacgnosis at this point. There was a concern in regards to endocarditis hence this consult. Denies any past heart anomalies nor arrhythmia but does have some noncompliance issues. He did have some ABRAHAM after the falls and so far no CV nor neurological residuals from prior fall. Presently being prepped for EEG. PAST MEDICAL HISTORY Psych: Addictions (meth and marijuana) Endocrine: Diabetes (1) PAST SURGICAL HISTORY Past Surgical History: No pertinent history FAMILY HISTORY Family History noncontributory to CV SOCIAL HISTORY Smoke: No ALCOHOL: occassional Drugs: Marijuana, Crystal meth Lives: Friends CURRENT MEDICATIONS CURRENT MEDICATIONS Current Medications Medications (Trade) Dose Ordered Sig/Beverly Route PRN Reason Start Time Stop Time Status Last Admin Dose Admin Sodium Chloride 1,000 ml @ 0 mls/hr 1X ONCE IV 10/18/19 13:15 10/18/19 13:16 DC 10/18/19 13:22 Diphtheria/ Tetanus/Acell Pertussis (ADACEL TDap SYRINGE) 0.5 ml ONCE ONCE VAX IM 10/18/19 15:15 10/18/19 15:16 DC 10/18/19 16:27 Gadoterate Meglumine (Dotarem) 19.6 ml 1X ONCE IVP 10/18/19 15:15 10/18/19 15:16 DC 10/18/19 15:21 Ceftriaxone Sodium (Rocephin) 1 gm 1X ONCE IVP 10/18/19 16:00 10/18/19 16:01 DC 10/18/19 16:26 Vancomycin HCl 2 gm/Sodium Chloride 500 ml @ 250 mls/hr 1X ONCE IV 10/18/19 16:00 10/18/19 17:59 DC 10/18/19 16:28 Levetiracetam 1000 mg/Dextrose 110 ml @ 440 mls/hr 1X ONCE IV 10/18/19 17:00 10/18/19 17:14 DC 10/18/19 17:12 Sodium Chloride 1,000 ml @ 100 mls/hr Q10H IV 10/18/19 18:00 10/19/19 10:47 Acetaminophen (Tylenol) 650 mg PRN Q4HRS PRN PO TEMP OVER 100.4F OR MILD PAIN 10/18/19 18:00 10/19/19 11:16 DC 10/19/19 07:38 Vancomycin HCl (Vanco Per Pharmacy) 1 each PRN DAILY PRN MC SEE COMMENTS 10/18/19 18:15 10/19/19 09:37 DC 10/19/19 07:49 Piperacillin Sod/ Tazobactam Sod 4.5 gm/Sodium Chloride 100 ml @ 200 mls/hr Q6HRS IV 10/18/19 18:00 10/19/19 05:44 Vancomycin HCl 1.25 gm/Sodium Chloride 250 ml @ 167 mls/hr Q8H IV 10/19/19 00:00 10/19/19 09:34 DC 10/19/19 07:39 Insulin Human Lispro (HumaLOG) 7 units 1X ONCE SQ 10/18/19 21:00 10/18/19 21:01 DC 10/18/19 21:00 Iohexol (Omnipaque 300 Mg/ml) 75 ml 1X ONCE IV 10/19/19 09:00 10/19/19 09:01 DC 10/19/19 09:00 ALLERGIES ALLERGIES: Coded Allergies: Sulfa (Sulfonamide Antibiotics) (Verified Allergy, Intermediate, Hives, 10/24/15) ROS Review of System 14 point ROS evaluated with pertinent positives noted per HPI PHYSICAL EXAM General: Alert, Oriented X3, Cooperative, No acute distress HEENT: Atraumatic, Mucous membr. moist/pink Lungs: Clear to auscultation, Normal air movement Heart: Regular rate (SR), Normal S1, Normal S2, No murmurs Abdomen: Soft, No tenderness Extremities: No cyanosis, No edema Skin: No breakdown Neuro: Normal speech, Sensation intact Psych/Mental Status: Mental status NL, Mood NL MUSCULOSKELETAL: Full range of motion without pain VITALS/I&O VITALS/I&O: Vital Signs Date Time Temp Pulse Resp B/P (MAP) Pulse Ox O2 Delivery O2 Flow Rate FiO2 10/19/19 12:00 98.3 82 16 119/84 (96) 99 Room Air 98.3 I & O 10/18/19 10/18/19 10/19/19 15:00 23:00 07:00 Intake Total 1000 ml 810 ml 1140 ml Output Total 600 ml 800 ml Balance 1000 ml 210 ml 340 ml LABS Lab: Laboratory Tests Test 10/18/19 14:53 10/18/19 16:31 10/18/19 20:35 10/19/19 04:10 Glucose (Fingerstick) 423 mg/dL (70-99) H 321 mg/dL (70-99) H 331 mg/dL (70-99) H Creatinine 0.7 mg/dL (0.7-1.3) Estimated GFR (Cockcroft-Gault) 127.6 Test 10/19/19 04:15 10/19/19 07:43 Glucose (Fingerstick) 88 mg/dL (70-99) 80 mg/dL (70-99) Laboratory Tests 10/19/19 04:10 ASSESSMENT/PLAN ASSESSMENT/PLAN 1. Syncope with fall: due to hypoglycemia, no arrhythmias. no obvious vegetatio n/endocarditis per TTE, EF and WM nml 2. Abnormal MRI: noting possible infarcta and cerebellar hemorrhage. Neuro following. No meningitis 3. Possible seizure as well 4. DM1: likely noncompliant with insulin therapy 5. Substance abuse: marijuana and smoke meth no IVD use Recommendations 1. TTE reviewed. 2. On antibiotics, ID does not suspect meningitis 3. Substance abuse cessation 4. Discussed treatment compliance. Nothing further cardiac colindres. MANJEET FISCHER MD 10/19/19 6463: CARDIAC CONSULT ASSESSMENT/PLAN ASSESSMENT/PLAN Patient seen and examined I agree with our nurse practitioners assessment and plan. Syncope with a fall. Rhythm stable since admission. Echocardiogram with intact LV systolic function. Neurology and neurosurgery work-up as above. Abnormal MRI with possible infarct and cerebral hemorrhage. As per neurology and neurosurgery. Seizure possibility also being evaluated. Substance abuse. Diabetes mellitus. Thank you for allowing us to participate in the care of your patient. ETHAN VALLE APRN Oct 19, 2019 12:41 MANJEET FISCHER MD Oct 19, 2019 16:28
--- NOTE | 2019-10-19 13:23 | PDOC ---
Provider Note Provider Note Patient seen and examined consulted for abnormal CT /MRI brain found down yesterday, had seizure no neuro deficits noted on exam on imaging there are multiple abnormalities including evidence of subacute infarct in right posterior frontal area, there are foci of right frontal cortical changes consistent with infarcts, low density change in the left cerebellum consistent with old hemorrhage, there is additionally leptomeningeal enhancement in the right parietal occipital region impression : could be meningitis but there are no clinical signs of meningitis,the other changes could be related to drug use plan: repeat MRI brain in 2 weeks Justicifation of Admission Dx: Justifications for Admission: Justification of Admission Dx: Yes Acute Hemorrhagic Stroke: Acute Hemorrhagic Stroke XIANG SAWYER MD Oct 19, 2019 13:23
--- NOTE | 2019-10-19 14:46 | NUR ---
SS following up with discharge planning. Samir from PAT team met with pt and pt declined need for services for substance use. Samir provided pt with resources for [facility]. SS will continue to follow for discharge planning.
--- NOTE | 2019-10-19 15:07 | NUR ---
Case Management consulted b/c pt needs assistance getting insulin. Pt does not have insurance or a job.
--- NOTE | 2019-10-19 16:45 | EEG ---
DATE OF SERVICE: 10/19/2019 ELECTROENCEPHALOGRAM REPORT EEG NUMBER: [id number]. OBJECTIVE: The patient is a 34-year-old male with new seizures. DESCRIPTION: This is a digital study. Electrodes are placed according to the international 10-20 system. Bipolar and referential montages are available. Activation procedures typically include hyperventilation and intermittent photic stimulation. INTERPRETATION: The waking background consists of 8-9 Hz, 50-100 microvolt activity, symmetrically distributed over parietooccipital regions and reactive to eye opening. Hyperventilation and intermittent photic stimulation are noncontributory. Stage 1 sleep is achieved with normal electroencephalogram patterns. IMPRESSION: This electroencephalogram with the patient awake and asleep is within normal limits. There is no focal, paroxysmal, or epileptiform activity. Thank you for letting us help with the patient's care. JANESSA DURAN MD DR: CHERELLE/thalia JOB#: [id number] / [id number]
[2019-10-19] MEDS: LACTOBACILLUS RHAMNOSUS GG 1 CAPSULE. PO SCH (21:01)
[2019-10-19] MEDS ORDERED: INSULIN LISPRO 300 UNITS/3 ML VIAL. SQ ONE (21:15)
[2019-10-20] VITALS (7 sets, daily range): BP systolic 107–127; BP diastolic 70–91
[2019-10-20 04:49] LABS: CHOLESTEROL/HDL RATIO 2.2
[2019-10-20] MEDS: PIPERACILLIN/TAZOBACTAM 4.5 GM in IV NORMAL SALINE 100ML 100 ML IV SCH (06:02)
--- NOTE | 2019-10-20 07:58 | PDOC ---
Infectious Disease Note Subjective Subjective Patient is feeling good has no complaints walking eating ROS ROS No nausea vomiting diarrhea chest pain shortness of breath or fever Vital Sign Vital Signs Vital Signs Date Time Temp Pulse Resp B/P (MAP) Pulse Ox O2 Delivery O2 Flow Rate FiO2 10/20/19 06:05 90 18 122/85 (97) 98 Room Air 10/20/19 04:00 97.2 97.2 Physical Exam PHYSICAL EXAM GENERAL: Alert, oriented gentleman, not in distress. VITAL SIGNS: Stable, afebrile. HEENT: Both pupils are round and reacting. No conjunctival lesion, no lesion in the mouth. NECK: Supple, no JVP, no lymphadenopathy. LUNGS: Clear. HEART: S1, S2 regular. ABDOMEN: Soft, nontender, no organomegaly. EXTREMITIES: No edema, cyanosis. SKIN: Unremarkable other than on the scalp on the left side, he does have a bruise visible on the left side of the head. The patient does not have any peripheral stigmata for endocarditis. NEUROLOGIC: The patient is neurologically alert, awake and appropriate. No focal neurologic deficit. Meningeal signs, Kernig's and Brudzinski signs are negative. Labs Lab Laboratory Tests Test 10/19/19 13:30 10/19/19 16:45 10/19/19 21:04 10/20/19 04:02 Glucose (Fingerstick) 303 mg/dL (70-99) 250 mg/dL (70-99) 308 mg/dL (70-99) Triglycerides Level 101 mg/dL (0-150) Cholesterol Level 128 mg/dL (0-200) LDL Cholesterol, Calculated 50 mg/dL (0-100) VLDL Cholesterol, Calculated 20 mg/dL (0-40) Non-HDL Cholesterol Calculated 70 mg/dL (0-129) HDL Cholesterol 58 mg/dL (40-60) Cholesterol/HDL Ratio 2.2 Micro Microbiology 10/18/19 Blood Culture - Preliminary, Resulted NO GROWTH AFTER 1 DAY Objective Assessment IMPRESSION: 1. Hypoglycemia, probably related to insulin and he did not eat probably in timely fashion, especially during the crystal meth. 2. Drug use, though denies any IV drug use. 3. Status post fall with a scalp contusion and appears to be intracranial hemorrhage. There is no clinical evidence or suspicion for meningitis. 4. Diabetes mellitus. Plan Plan of Care Discontinue antibiotics Supportive care Discussed with the patient about NO to the drugs HENRY CASE MD Oct 20, 2019 07:58
--- NOTE | 2019-10-20 08:09 | PDOC ---
[employer] PROGRESS NOTE Chief Complaint Chief Complaint Polysubstance abuse Seizure Fall with closed head injury FLEET COORDINATOR hemorrhage [place] Diabetes History of Present Illness History of Present Illness 10/20/2019 Patient seen and examined in the ICU He was sleeping but awoke Seems to be pleasant Alert and oriented x3 Vital signs look normal Reviewed chart Neurosurgery would like to do another MRI in 2 weeks 10/19/2019 Patient seen and examined in the ICU He was originally resting but awoke and was pleasant Discussed with RN Chart reviewed Vitals/I&O Vitals/I&O: Vital Signs Date Time Temp Pulse Resp B/P (MAP) Pulse Ox O2 Delivery O2 Flow Rate FiO2 10/20/19 06:05 90 18 122/85 (97) 98 Room Air 10/20/19 04:00 97.2 97.2 I & O 10/19/19 10/19/19 10/20/19 15:00 23:00 07:00 Intake Total 870 ml 1793 ml 100 ml Balance 870 ml 1793 ml 100 ml Physical Exam General: Alert, Oriented X3, Cooperative, No acute distress Heart: Regular rate (SR), Normal S1, Normal S2, No murmurs Lungs: Clear Abdomen: Soft, No tenderness Extremities: No cyanosis, No edema Skin: No breakdown Labs Labs: Laboratory Tests Test 10/19/19 13:30 10/19/19 16:45 10/19/19 21:04 10/20/19 04:02 Glucose (Fingerstick) 303 mg/dL (70-99) 250 mg/dL (70-99) 308 mg/dL (70-99) Triglycerides Level 101 mg/dL (0-150) Cholesterol Level 128 mg/dL (0-200) LDL Cholesterol, Calculated 50 mg/dL (0-100) VLDL Cholesterol, Calculated 20 mg/dL (0-40) Non-HDL Cholesterol Calculated 70 mg/dL (0-129) HDL Cholesterol 58 mg/dL (40-60) Cholesterol/HDL Ratio 2.2 Assessment and Plan Assessmemt and Plan Problems Medical Problems: (1) Cerebellar hemorrhage Status: Acute (2) Hypoglycemia Status: Acute (3) Meningitis Status: Acute Polysubstance abuse Seizure Fall with closed head injury FLEET COORDINATOR hemorrhage [place] Diabetes Plan ICU monitoring Antibiotics being managed by infectious disease Neurology following Neurosurgery following Reimage brain in 2 weeks with MRI per neurosurgery recommendations Home meds DVT prophylaxis He needs to stop doing the drugs Appreciate subspecialist input Comment Review of Relevant I have reviewed the following items jaleesa (where applicable) has been applied. Medications: Current Medications Medications (Trade) Dose Ordered Sig/Beverly Route PRN Reason Start Time Stop Time Status Last Admin Dose Admin Iohexol (Omnipaque 300 Mg/ml) 75 ml 1X ONCE IV 10/19/19 09:00 10/19/19 09:01 DC 10/19/19 09:00 Lactobacillus Rhamnosus (Culturelle) 1 cap BID PO 10/19/19 21:00 10/19/19 21:01 Insulin Human Lispro (HumaLOG) 4 units 1X ONCE SQ 10/19/19 21:15 10/19/19 21:16 DC 10/19/19 21:12 Justicifation of Admission Dx: Justifications for Admission: Justification of Admission Dx: Yes Acute Hemorrhagic Stroke: Acute Hemorrhagic Stroke HERNAN CLEMONS III DO Oct 20, 2019 08:09
[2019-10-20] MEDS ORDERED: levETIRAcetam 500 MG TABLET PO SCH (09:00)
[2019-10-20] MEDS: INSULIN LISPRO 300 UNITS/3 ML VIAL. SQ SCH (09:02)
[2019-10-20] MEDS ORDERED: LEVE500T56 PO (09:17)
[2019-10-20] MEDS: LACTOBACILLUS RHAMNOSUS GG 1 CAPSULE. PO SCH (09:49)
--- NOTE | 2019-10-20 10:25 | PDOC ---
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 Seizure, EEG negative Small area of left cerebellar hemorrhage Right parieto-occipital leptomeningeal enhancement, suspicious for meningitis, but no clinical sign of meningitis. Multiple substance use, urine drug screen not ordered Possible thoracic compression fracture on the CT angiogram, no clinical evidence of this Note normal lipids Plan I discussed with patient that he will have strokes and seizures as long as he uses methamphetamine. Levetiracetam, taper after 3-6 months, told patiently should not stop at all the sudden I informed him that he cannot drive until he has gone 6 months without a seizure Follow up with me in 3 minutes. No antiplatelet agents or anticoagulants given the hemorrhage, these would not help with methamphetamine induced strokes anyway Subjective No complaints, wants to go home, says he has used methamphetamine since age 2 Objective Vital Signs Date Time Temp Pulse Resp B/P (MAP) Pulse Ox O2 Delivery O2 Flow Rate FiO2 10/20/19 07:00 98.0 83 20 115/81 (92) 98 Room Air 98.0 Intake and Output 10/20/19 07:00 Intake Total 2763 ml Balance 2763 ml Intake Oral 1570 ml IV Total 1193 ml # Voids 8 # Bowel Movements 1 PHYSICAL EXAM Alert. Oriented to time, place and person. PERRL. EOMI. CN: no focal findings. Muscle tone: normal. Muscle strength: 5/5 DTR: 2+ Plantar reflex: flexor Gait: not examined in bed. Sensory exam: no abnormal findings. No cerebellar signs elicited. Review of Relevant I have reviewed the following items [email or web address] (where applicable) has been applied. Labs Laboratory Tests Test 10/18/19 10:25 10/18/19 10:28 10/18/19 11:00 10/18/19 11:30 White Blood Count 8.5 x10^3/uL (4.0-11.0) Red Blood Count 4.04 x10^6/uL (4.30-5.70) Hemoglobin 12.0 g/dL (13.0-17.5) Hematocrit 35.6 % (39.0-53.0) Mean Corpuscular Volume 88 fL (79-100) Mean Corpuscular Hemoglobin 30 pg (25-35) Mean Corpuscular Hemoglobin Concent 34 g/dL (31-37) Red Cell Distribution Width 13.3 % (11.5-14.5) Platelet Count 208 x10^3/uL (140-400) Neutrophils (%) (Auto) 77 % (31-73) Lymphocytes (%) (Auto) 14 % (24-48) Monocytes (%) (Auto) 7 % (0-9) Eosinophils (%) (Auto) 1 % (0-3) Basophils (%) (Auto) 0 % (0-3) Neutrophils # (Auto) 6.6 x10^3/uL (1.8-7.7) Lymphocytes # (Auto) 1.2 x10^3/uL (1.0-4.8) Monocytes # (Auto) 0.6 x10^3/uL (0.0-1.1) Eosinophils # (Auto) 0.1 x10^3/uL (0.0-0.7) Basophils # (Auto) 0.0 x10^3/uL (0.0-0.2) Sodium Level 140 mmol/L (136-145) Potassium Level 3.6 mmol/L (3.5-5.1) Chloride Level 104 mmol/L (98-107) Carbon Dioxide Level 27 mmol/L (21-32) Anion Gap 9 (6-14) Blood Urea Nitrogen 18 mg/dL (8-26) Creatinine 0.9 mg/dL (0.7-1.3) Estimated GFR (Cockcroft-Gault) 95.5 BUN/Creatinine Ratio 20 (6-20) Glucose Level 264 mg/dL (70-99) Calcium Level 8.6 mg/dL (8.5-10.1) Total Bilirubin 0.1 mg/dL (0.2-1.0) Aspartate Amino Transf (AST/SGOT) 20 U/L (15-37) Alanine Aminotransferase (ALT/SGPT) 29 U/L (16-63) Alkaline Phosphatase 122 U/L (46-116) Total Protein 6.3 g/dL (6.4-8.2) Albumin 2.9 g/dL (3.4-5.0) Albumin/Globulin Ratio 0.9 (1.0-1.7) Procalcitonin < 0.10 ng/mL (0.00-0.10) HIV (1&2) Antibody Screen Nonreactive (Nonreactive) Glucose (Fingerstick) 299 mg/dL (70-99) Urine Color Yellow Urine Clarity Clear Urine pH 5.5 (<5.0-8.0) Urine Specific [place] >=1.030 (1.000-1.030) Urine Protein Negative mg/dL (NEG-TRACE) Urine Glucose (UA) >=1000 mg/dL (NEG) Urine Ketones (Stick) Negative mg/dL (NEG) Urine Blood Trace (NEG) Urine Nitrite Negative (NEG) Urine Bilirubin Negative (NEG) Urine Urobilinogen Dipstick 0.2 mg/dL (0.2 mg/dL) Urine Leukocyte Esterase Negative (NEG) Urine RBC 3-5 /HPF (0-2) Urine WBC Occ /HPF (0-4) Urine Squamous Epithelial Cells Few /LPF Urine Bacteria Few /HPF (0-FEW) Urine Mucus Mod /LPF Urine Opiates Screen Neg (NEG) Urine Methadone Screen Neg (NEG) Urine Barbiturates Neg (NEG) Urine Phencyclidine Screen Neg (NEG) Urine Amphetamine/Methamphetamine Pos (NEG) Urine Benzodiazepines Screen Neg (NEG) Urine Cocaine Screen Neg (NEG) Urine Cannabinoids Screen Pos (NEG) Urine Ethyl Alcohol Neg (NEG) Test 10/18/19 12:22 10/18/19 14:53 10/18/19 16:31 10/18/19 20:35 Glucose (Fingerstick) 512 mg/dL (70-99) 423 mg/dL (70-99) 321 mg/dL (70-99) 331 mg/dL (70-99) Test 10/19/19 04:10 10/19/19 04:15 10/19/19 07:43 10/19/19 13:30 Creatinine 0.7 mg/dL (0.7-1.3) Estimated GFR (Cockcroft-Gault) 127.6 Glucose (Fingerstick) 88 mg/dL (70-99) 80 mg/dL (70-99) 303 mg/dL (70-99) Test 10/19/19 16:45 10/19/19 21:04 10/20/19 04:02 10/20/19 08:56 Glucose (Fingerstick) 250 mg/dL (70-99) 308 mg/dL (70-99) 402 mg/dL (70-99) Triglycerides Level 101 mg/dL (0-150) Cholesterol Level 128 mg/dL (0-200) LDL Cholesterol, Calculated 50 mg/dL (0-100) VLDL Cholesterol, Calculated 20 mg/dL (0-40) Non-HDL Cholesterol Calculated 70 mg/dL (0-129) HDL Cholesterol 58 mg/dL (40-60) Cholesterol/HDL Ratio 2.2 Laboratory Tests Test 10/19/19 13:30 10/19/19 16:45 10/19/19 21:04 10/20/19 04:02 Glucose (Fingerstick) 303 mg/dL (70-99) 250 mg/dL (70-99) 308 mg/dL (70-99) Triglycerides Level 101 mg/dL (0-150) Cholesterol Level 128 mg/dL (0-200) LDL Cholesterol, Calculated 50 mg/dL (0-100) VLDL Cholesterol, Calculated 20 mg/dL (0-40) Non-HDL Cholesterol Calculated 70 mg/dL (0-129) HDL Cholesterol 58 mg/dL (40-60) Cholesterol/HDL Ratio 2.2 Test 10/20/19 08:56 Glucose (Fingerstick) 402 mg/dL (70-99) Microbiology 10/18/19 Blood Culture - Preliminary, Resulted NO GROWTH AFTER 1 DAY Medications Current Medications Sodium Chloride 1,000 ml @ 0 mls/hr 1X ONCE IV Last administered on 10/18/19at 13:22; Start 10/18/19 at 13:15; Stop 10/18/19 at 13:16; Status DC Diphtheria/ Tetanus/Acell Pertussis (ADACEL TDap SYRINGE) 0.5 ml ONCE ONCE VAX IM Last administered on 10/18/19at 16:27; Start 10/18/19 at 15:15; Stop 10/18/19 at 15:16; Status DC Gadoterate Meglumine (Dotarem) 19.6 ml 1X ONCE IVP Last administered on 10/18/19at 15:21; Start 10/18/19 at 15:15; Stop 10/18/19 at 15:16; Status DC Ceftriaxone Sodium (Rocephin) 1 gm 1X ONCE IVP Last administered on 10/18/19at 16:26; Start 10/18/19 at 16:00; Stop 10/18/19 at 16:01; Status DC Vancomycin HCl 1.5 gm/Sodium Chloride 500 ml @ 250 mls/hr 1X ONCE IV ; Start 10/18/19 at 16:00; Stop 10/18/19 at 17:59; Status UNV Vancomycin HCl 2 gm/Sodium Chloride 500 ml @ 250 mls/hr 1X ONCE IV Last administered on 10/18/19at 16:28; Start 10/18/19 at 16:00; Stop 10/18/19 at 17:59; Status DC Levetiracetam 1000 mg/Dextrose 110 ml @ 440 mls/hr 1X ONCE IV Last administered on 10/18/19at 17:12; Start 10/18/19 at 17:00; Stop 10/18/19 at 17:14; Status DC Sodium Chloride (Normal Saline Flush) 3 ml QSHIFT PRN IV AFTER MEDS AND BLOOD DRAWS; Start 10/18/19 at 18:00; Stop 10/20/19 at 10:18; Status DC Sodium Chloride 1,000 ml @ 100 mls/hr Q10H IV Last administered on 10/19/19at 10:47; Start 10/18/19 at 18:00; Stop 10/19/19 at 17:10; Status DC Ondansetron HCl (Zofran) 4 mg PRN Q4HRS PRN IV NAUSEA/VOMITING; Start 10/18/19 at 18:00; Stop 10/20/19 at 10:18; Status DC Acetaminophen (Tylenol) 650 mg PRN Q4HRS PRN PO TEMP OVER 100.4F OR MILD PAIN Last administered on 10/19/19at 07:38; Start 10/18/19 at 18:00; Stop 10/19/19 at 11:16; Status DC Acetaminophen (Tylenol Supp) 650 mg PRN Q4HRS PRN UT TEMP OVER 100.4F OR MILD PAIN; Start 10/18/19 at 18:00; Status Cancel Sodium Monofluorophosphate (Fleet Adult) 133 ml PRN DAILY PRN UT CONSTIPATION; Start 10/18/19 at 18:00; Stop 10/20/19 at 10:18; Status DC Docusate Sodium (Colace) 100 mg PRN BID PRN PO HARD STOOLS; Start 10/18/19 at 18:00; Stop 10/20/19 at 10:18; Status DC Albuterol Sulfate (Ventolin Neb Soln) 2.5 mg PRN Q4HRS PRN NEB SHORTNESS OF BREATH; Start 10/18/19 at 18:00; Stop 10/20/19 at 10:18; Status DC Guaifenesin (Robitussin) 200 mg PRN Q4HRS PRN PO COUGH; Start 10/18/19 at 18:00; Stop 10/20/19 at 10:18; Status DC Lorazepam (Ativan) 0.5 mg PRN Q4HRS PRN PO ANXIETY / AGITATION; Start 10/18/19 at 18:00; Stop 10/20/19 at 10:18; Status DC Piperacillin Sod/ Tazobactam Sod 3.375 gm/Sodium Chloride 50 ml @ 100 mls/hr Q6HRS IV ; Start 10/18/19 at 18:00; Status UNV Insulin Human Lispro (HumaLOG) 0-7 UNITS TIDWMEALS SQ Last administered on 10/20/19at 09:02; Start 10/19/19 at 08:00; Stop 10/20/19 at 10:18; Status DC Dextrose (Dextrose 50%-Water Syringe) 12.5 gm PRN Q15MIN PRN IV SEE COMMENTS; Start 10/18/19 at 18:15; Status Cancel Vancomycin HCl (Vanco Per Pharmacy) 1 each PRN DAILY PRN MC SEE COMMENTS Last administered on 10/19/19at 07:49; Start 10/18/19 at 18:15; Stop 10/19/19 at 09:37; Status DC Vancomycin HCl 250 ml @ 250 mls/hr 1X ONCE IV ; Start 10/18/19 at 18:15; Stop 10/18/19 at 19:14; Status UNV Piperacillin Sod/ Tazobactam Sod 4.5 gm/Sodium Chloride 100 ml @ 200 mls/hr Q6HRS IV Last administered on 10/20/19at 06:02; Start 10/18/19 at 18:00; Stop 10/20/19 at 10:18; Status DC Vancomycin HCl 1.25 gm/Sodium Chloride 250 ml @ 167 mls/hr Q8H IV Last administered on 10/19/19at 07:39; Start 10/19/19 at 00:00; Stop 10/19/19 at 09:34; Status DC Vancomycin HCl (Vancomycin Trough Level) 1 each 1X ONCE MC ; Start 10/19/19 at 15:30; Stop 10/19/19 at 09:37; Status DC Insulin Human Regular 100 unit/ Sodium Chloride 101 ml @ 0 mls/hr CONT PRN IV SEE I/O RECORD; Start 10/18/19 at 20:00; Stop 10/19/19 at 18:02; Status DC Dextrose (Dextrose 50%-Water Syringe) 12.5 gm PRN Q15MIN PRN IV LOW BLOOD SUGAR; Start 10/18/19 at 20:00; Stop 10/20/19 at 10:18; Status DC Dextrose (Iv Dextrose 5%) 250 ml PRN Q15MIN PRN IV LOW BLOOD SUGAR; Start 10/18/19 at 20:00; Stop 10/20/19 at 10:18; Status DC Insulin Human Lispro (HumaLOG) 7 units 1X ONCE SQ Last administered on 10/18/19at 21:00; Start 10/18/19 at 21:00; Stop 10/18/19 at 21:01; Status DC Acetaminophen (Tylenol) 650 mg PRN Q6HRS PRN PO TEMP > 100.4F; Start 10/19/19 at 08:45; Stop 10/20/19 at 10:18; Status DC Acetaminophen (Tylenol Supp) 650 mg PRN Q4HRS PRN UT TEMP > 100.4F; Start 10/19/19 at 08:45; Stop 10/20/19 at 10:18; Status DC Iohexol (Omnipaque 300 Mg/ml) 75 ml 1X ONCE IV Last administered on 10/19/19at 09:00; Start 10/19/19 at 09:00; Stop 10/19/19 at 09:01; Status DC Info (CONTRAST GIVEN -- Rx MONITORING) 1 each PRN DAILY PRN MC SEE COMMENTS; Start 10/19/19 at 09:00; Stop 10/20/19 at 10:18; Status DC Lactobacillus Rhamnosus (Culturelle) 1 cap BID PO Last administered on 10/20/19at 09:49; Start 10/19/19 at 21:00; Stop 10/20/19 at 10:18; Status DC Insulin Human Lispro (HumaLOG) 4 units 1X ONCE SQ Last administered on 10/19/19at 21:12; Start 10/19/19 at 21:15; Stop 10/19/19 at 21:16; Status DC Levetiracetam (Keppra) 500 mg BID PO Last administered on 10/20/19at 09:49; Start 10/20/19 at 09:00; Stop 10/20/19 at 10:18; Status DC Active Scripts Active Humalog (Insulin Lispro) 100 Unit/1 Ml Insuln.pen 10 Units SQ TIDWMEALS 30 Days Lantus (Insulin Glargine,Hum.rec.anlog) 100 Unit/1 Ml Vial 20 Unit SQ QHS 30 Days Klor-Con M20 (Potassium Chloride) 20 Meq Tab.er.prt 20 Meq PO DAILYWBKFT 10 Days Reported Keppra (Levetiracetam) 500 Mg Tablet 500 Mg PO BID Vitals/I & O Vital Sign - Last 24 Hours 10/19/19 10/19/19 10/19/19 10/19/19 11:00 12:00 13:00 14:00 Temp 98.3 98.3 Pulse 84 82 85 81 Resp 16 16 16 16 B/P (MAP) 119/80 (93) 119/84 (96) 110/81 (91) 125/85 (98) Pulse Ox 99 99 99 99 O2 Delivery Room Air Room Air Room Air Room Air 10/19/19 10/19/19 10/19/19 10/19/19 15:00 16:00 17:00 18:00 Temp 98.4 98.4 Pulse 83 81 90 90 Resp 16 16 16 16 B/P (MAP) 118/82 (94) 133/99 (110) 131/91 (104) 119/81 (94) Pulse Ox 99 100 98 98 O2 Delivery Room Air Room Air Room Air Room Air 10/19/19 10/19/19 10/19/19 10/19/19 19:00 20:00 21:00 22:00 Temp 97.8 97.8 Pulse 86 85 89 92 Resp 18 18 18 18 B/P (MAP) 118/82 (94) 128/89 (102) 120/81 (94) 107/66 (80) Pulse Ox 97 97 97 98 O2 Delivery Room Air Room Air Room Air Room Air 6/210/19/19 10/20/19 10/20/19 23:00 23:59 01:00 02:00 Temp 98.2 98.2 Pulse 88 86 92 90 Resp 16 16 19 18 B/P (MAP) 108/68 (81) 123/91 (102) 127/87 (100) 125/91 (102) Pulse Ox 99 98 97 98 O2 Delivery Room Air Room Air Room Air Room Air 10/20/19 10/20/19 10/20/19 10/20/19 03:00 04:00 05:00 06:05 Temp 97.2 97.2 Pulse 88 82 85 90 Resp 16 20 18 18 B/P (MAP) 107/70 (82) 122/87 (99) 119/84 (96) 122/85 (97) Pulse Ox 98 98 98 98 O2 Delivery Room Air Room Air Room Air Room Air 10/20/19 07:00 Temp 98.0 98.0 Pulse 83 Resp 20 B/P (MAP) 115/81 (92) Pulse Ox 98 O2 Delivery Room Air Intake and Output 10/19/19 10/19/19 10/20/19 15:00 23:00 07:00 Intake Total 870 ml 1793 ml 100 ml Balance 870 ml 1793 ml [address] ANGIOGRAPHY HEAD AND NECK History:Reason: mult strokes, drug abuse, r/o vasculitis / Spl. Instructions: IV OMNI 300 75 MLS / History: Technique: After bolus of intravenous contrast, volumetric CT data acquisition was acquired of the head and neck. Multiplanar reconstruction images to include MIP and 3-D reconstruction images are submitted. Exposure: One or more of the following individualized dose reduction techniques were utilized for this examination: 1. Automated exposure control 2. Adjustment of the mA and/or kV according to patient size 3. Use of iterative reconstruction technique. Comparison: CT head October 18, 2019. Brain MRI October 18, 2019. Any determination of stenosis is based on NASCET criteria. Head CTA: ICA: No stenosis, occlusion or aneurysm. MCA: No stenosis, occlusion or aneurysm. ZAFAR: No stenosis, occlusion or aneurysm. WOMEN DESIGNER: No stenosis, occlusion or aneurysm. Basilar artery: No stenosis, occlusion or aneurysm. Distal vertebral arteries: No stenosis, occlusion or aneurysm. Patent dural venous sinuses. Right mastoid and middle ear opacification. Multifocal carious and tension with periodontal disease. Secretions within the left inferior maxillary sinus. Ethmoid sinus mucosal thickening. CT angiogram neck: Aortic arch: Conventional arch anatomy. Common carotid arteries: No stenosis, occlusion or dissection. Internal carotid arteries: No stenosis, occlusion or dissection. External carotid arteries: Patent Vertebral arteries: No stenosis, occlusion or dissection. 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 Dominant right vertebral artery. Imaged lung apices are unremarkable. Soft tissues appear normal. Bones: Linear sclerosis extending through T4 superior vertebral body with minimal anterior height loss. Impression: 1. No arterial stenosis or occlusion within the head or neck. 2. Linear sclerosis through T4 superior vertebral body, may represent slight compression fracture. Recommend correlation with point tenderness. MRI can better evaluate if clinically warranted. Echocardiogram: LEFT VENTRICLE The left ventricle is normal size. There is normal left ventricular wall thickness. The left ventricular systolic function is normal. The Ejection Fraction is 55-60%. There is normal LV segmental wall motion. The left ventricular diastolic function and filling is normal for age. RIGHT VENTRICLE The right ventricle is normal size. The right ventricular systolic function is normal. ATRIA The left atrium size is normal. The right atrium size is normal. The interatrial septum is intact with no evidence for an atrial septal defect or patent foramen ovale as noted on 2-D or Doppler imaging. AORTIC VALVE The aortic valve is normal in structure and function. Doppler and Color Flow revealed no significant aortic regurgitation. There is no significant aortic valvular stenosis. MITRAL VALVE The mitral valve is normal in structure and function. There is no evidence of mitral valve prolapse. There is no mitral valve stenosis. Doppler and Color-flow revealed trace mitral regurgitation. TRICUSPID VALVE The tricuspid valve is normal in structure and function. Doppler and Color Flow revealed trace tricuspid regurgitation. There is no tricuspid valve stenosis. PULMONIC VALVE The pulmonary valve is normal in structure and function. Doppler and Color Flow revealed trace pulmonic valvular regurgitation. There is no pulmonic valvular stenosis. GREAT VESSELS The aortic root is normal in size. The ascending aorta is in the upper limits of normal at 3.4 cm. The IVC is normal in size and collapses >50% with inspiration. PERICARDIAL EFFUSION There is no evidence of significant pericardial effusion. Critical Notification Critical Value: No <Conclusion> The left ventricular systolic function is normal. The Ejection Fraction is 55-60%. There is normal LV segmental wall motion. Trace mitral regurgitation. Trace tricuspid regurgitation. There is no evidence of significant pericardial effusion. Justicifation of Admission Dx: Justifications for Admission: Justification of Admission Dx: Yes Stroke - Ischemic: Stroke-Ischemic Acute Hemorrhagic Stroke: Acute Hemorrhagic Stroke JANESSA DURAN MD Oct 20, 2019 10:25
--- NOTE | 2019-10-21 12:16 | DS ---
DATE OF DISCHARGE: 10/20/2019 ADMISSION DIAGNOSES: Polysubstance abuse, central nervous system hemorrhage. DISCHARGE DIAGNOSIS: Resolving central nervous system hemorrhage. HOSPITAL COURSE: The patient is a pleasant 34-year-old male who does methamphetamine. Basically, he presented with a seizure. We did a scan and he had some bleeding into his brain. We admitted him to the ICU. We consulted Neurology and Neurosurgery and over the next couple of days, he did better. We re-imaged his head. He is doing better. Yesterday, I saw him and examined him. We discharged to home with close outpatient followup. DISPOSITION: Home. ACTIVITY: As tolerated. DIET: Low sodium. MEDICATIONS: Please see the MRAD. TOTAL TIME: 32 minutes. HERNAN CLEMONS DO DR: CHANDA/thalia JOB#: [id number] / [id number]
== END 2019-10-20 10:10 | disposition home or self-care (01) | DRG 66 ==
LOC: ER 09:32 → CVICU 16:29
PROVIDERS: ADMIT Family Medicine; ATTEND Family Medicine
PROC: 4A00X4Z Measurement of Central Nervous Electrical Activity, External Approach (ICD-10-PCS; principal; 2019-10-19)
DX: I61.4 Nontraumatic intracerebral hemorrhage in cerebellum (principal); F17.210 Nicotine dependence, cigarettes, uncomplicated; S09.90XA Unspecified injury of head, initial encounter; E10.649 Type 1 diabetes mellitus with hypoglycemia without coma; K08.9 Disorder of teeth and supporting structures, unspecified; F15.10 Other stimulant abuse, uncomplicated; F12.10 Cannabis abuse, uncomplicated; S00.03XA Contusion of scalp, initial encounter; R32 Unspecified urinary incontinence; W19.XXXA Unspecified fall, initial encounter; Y93.89 Activity, other specified; Y92.89 Other specified places as the place of occurrence of the external cause; Y99.8 Other external cause status; Z88.2 Allergy status to sulfonamides; Z79.4 Long term (current) use of insulin; Z91.14 Patient's other noncompliance with medication regimen; Z91.19 Patient's noncompliance with other medical treatment and regimen
CPT/HCPCS: 36415; 70450; 70496; 70498; 70553; 80053; 80061; 80307; 81001; 82565; 82962; 84145; 85025; 86703; 87040; 87103; 90471; 90715; 93306; 95816; A9575; J0696; J1953; J2543; J3370; J7030; J7040; J7050; J7060; Q9967; 92610-GN; G0378

== ENCOUNTER 2020-01-30 16:39 | Inpatient (IN) | payer SELFPAY ==
[~2020-01-30] VITALS: Ht 182.9 cm; Wt 65.8 kg
[~2020-01-30 16:39] MED LIST changes: +LEVE500T56 PO
[2020-01-30] MEDS ORDERED: IV NORMAL SALINE 1000ML BAG 1,000 ML IV ONE ×2 (16:45)
[2020-01-30 16:49] LABS: BASE EXCESS ABG -34 mmol/L (-3-3); HCO3 ABG 2 mmol/L (21-28); PO2 ABG 130 mmHg (85-108); SAT O2 ABG 97 % (92-99)
[2020-01-30 16:52] LABS: FIO2 ABG ROOM AIR; PCO2 ABG < 15 mmHg (35-46)
[2020-01-30 17:04] LABS: BASO # 0.1 x10^3/uL (0.0-0.2); BASO % 0 % (0-3); EOS % 0 % (0-3); HEMATOCRIT 42.8 % (39.0-53.0); HEMOGLOBIN 12.1 g/dL (13.0-17.5); LYMPH % 15 % (24-48); MEAN CORPUSCULAR HEMOGLOBIN 28 pg (25-35); MEAN CORPUSCULAR HGB CONC 28 g/dL (31-37); MEAN CORPUSCULAR VOLUME 99 fL (79-100); MONO # 2.4 x10^3/uL (0.0-1.1); MONO % 9 % (0-9); NEUT # 21.2 x10^3/uL (1.8-7.7); NEUT % 76 % (31-73); PLATELET COUNT 288 x10^3/uL (140-400); RED BLOOD COUNT 4.32 x10^6/uL (4.30-5.70); RED CELL DISTRIBUTION WIDTH 14.8 % (11.5-14.5); WHITE BLOOD COUNT 27.7 x10^3/uL (4.0-11.0)
[2020-01-30 17:19] LABS: ALBUMIN 2.8 g/dL (3.4-5.0); ALBUMIN/GLOBULIN RATIO 0.9 (1.0-1.7); ALK PHOS 166 U/L (46-116); ALT (SGPT) 30 U/L (16-63); AST (SGOT) 20 U/L (15-37); BLOOD UREA NITROGEN 41 mg/dL (8-26); BUN/CREATININE RATIO 24 (6-20); CALCIUM 8.5 mg/dL (8.5-10.1); CHLORIDE 91 mmol/L (98-107); CREATININE 1.7 mg/dL (0.7-1.3); GFR 45.8; SODIUM 126 mmol/L (136-145); TOTAL BILIRUBIN 0.4 mg/dL (0.2-1.0); TOTAL PROTEIN 5.9 g/dL (6.4-8.2)
[2020-01-30 17:33] LABS: % BANDS 5 % (0-9); % LYMPHS 14 % (24-48); % MONOS 5 % (0-10); % SEGS 76 % (35-66); ANISOCYTOSIS SLIGHT; PLT ESTIMATE ADEQUATE (ADEQUATE); TOXIC GRANULATION SLIGHT; TOXIC VACUOLATION SLIGHT
[2020-01-30 17:40] LABS: GLUCOSE 960 mg/dL (70-99)
[2020-01-30 17:41] LABS: CARBON DIOXIDE < 5 mmol/L (21-32); POTASSIUM 6.4 mmol/L (3.5-5.1)
[2020-01-30] MEDS ORDERED: cefTRIAXone IV Push 1 GM VIAL. IVP ONE (17:45)
[2020-01-30 17:49] LABS: BILIRUBIN,URINE NEGATIVE (NEG); CLARITY,URINE CLEAR; COLOR,URINE YELLOW; NITRITE,URINE NEGATIVE (NEG); PROTEIN,URINE 30 mg/dL (NEG-TRACE); UROBILINOGEN,URINE 0.2 mg/dL (0.2 mg/dL)
[2020-01-30 17:53] LABS: BACTERIA,URINE 0 /HPF (0-FEW); RBC,URINE 20-40 /HPF (0-2); WBC,URINE OCC /HPF (0-4)
[2020-01-30 17:54] LABS: GRANULAR CASTS,URINE FEW /HPF
[2020-01-30] MEDS ORDERED: SODIUM BICARBONATE VIAL 50 MEQ in IV 1/2 NORMAL SALINE 1,000 ML IV PRN (18:40)
[2020-01-30] MEDS ORDERED: IV DEXTROSE 5 %-0.45 % NACL 1,000 ML IV SCH (18:43)
[2020-01-30] MEDS ORDERED: IV 1/2 NORMAL SALINE 1,000 ML IV SCH (18:43)
[2020-01-30] MEDS ORDERED: POTASSIUM CHLORIDE 10MEQ 100 ML IV PRN ×2 (18:45)
--- NOTE | 2020-01-30 18:49 | PHYS DOC ---
Past Medical History Past Medical History: Diabetes-Type I Past Surgical History: No Surgical History Smoking Status: Current Every Day Smoker Alcohol Use: Occasionally Drug Use: Marijuana General Adult EDM: Chief Complaint: HYPERGLYCEMIA HPI: HPI: Patient is a 34 year old male who presents to the Emergency Room with confusion and vomiting. Patient is reportedly a diabetes and EMS got a glucose that read as high. History is limited due to patient's mental status. Unclear whether patient is taking his insulin. He denies being sick prior to today. States he started vomiting and tried to take pepto. Review of Systems: Review of Systems: Unable to obtain Heart Score: Risk Factors: Risk Factors: DM, Current or recent (<one month) smoker, HTN, HLP, family history of CAD, obesity. Risk Scores: Score 0 - 3: 2.5% MACE over next 6 weeks - Discharge Home Score 4 - 6: 20.3% MACE over next 6 weeks - Admit for Clinical Observation Score 7 - 10: 72.7% MACE over next 6 weeks - Early Invasive Strategies Current Medications: Current Medications Medications (Trade) Dose Ordered Sig/Beverly Start Time Stop Time Status Last Admin Dose Admin Ceftriaxone Sodium (Rocephin) 1 gm 1X ONCE 01/30/20 17:45 01/30/20 17:46 DC 01/30/20 18:18 1 GM Sodium Chloride 1,000 ml @ 1,000 mls/hr 1X ONCE 01/30/20 16:45 01/30/20 17:44 DC 01/30/20 16:56 1,000 MLS/HR Allergies: Allergies: Allergies Coded Allergies Type Severity Reaction Last Updated Verified Sulfa (Sulfonamide Antibiotics) Allergy Intermediate Hives 10/24/15 Yes Physical Exam: PE: General: Awake, alert, mild distress. Ketoic smell HEENT: Atraumatic, EOMI, PERRL, airway patent, dry oral mucosa, pink powder dried in mouth Neck: Supple, trachea midline Respiratory: CTA bilaterally, Kussmaul breathing, no wheezing/crackles CV: Tachycardic, no murmur, cap refill delayed GI: Soft, nondistended, nontender, no masses MSK: No obvious deformities Skin: Warm, dry, intact Neuro: A&O x3, speech more limited, sensory and motor grossly intact, no focal deficits Psych: Confused, not suicidal or homicidal Current Patient Data: Labs: Laboratory Tests Test 01/30/20 16:40 01/30/20 16:53 01/30/20 17:40 O2 Saturation 97 % (92-99) Arterial Blood pH 6.72 (7.35-7.45) *L Arterial Blood pCO2 at Patient Temp < 15 mmHg (35-46) *L Arterial Blood pO2 at Patient Temp 130 mmHg (85-108) H Arterial Blood HCO3 2 mmol/L (21-28) L Arterial Blood Base Excess -34 mmol/L (-3-3) L FiO2 Room air White Blood Count 27.7 x10^3/uL (4.0-11.0) H Red Blood Count 4.32 x10^6/uL (4.30-5.70) Hemoglobin 12.1 g/dL (13.0-17.5) L Hematocrit 42.8 % (39.0-53.0) Mean Corpuscular Volume 99 fL (79-100) Mean Corpuscular Hemoglobin 28 pg (25-35) Mean Corpuscular Hemoglobin Concent 28 g/dL (31-37) L Red Cell Distribution Width 14.8 % (11.5-14.5) H Platelet Count 288 x10^3/uL (140-400) Neutrophils (%) (Auto) 76 % (31-73) H Lymphocytes (%) (Auto) 15 % (24-48) L Monocytes (%) (Auto) 9 % (0-9) Eosinophils (%) (Auto) 0 % (0-3) Basophils (%) (Auto) 0 % (0-3) Neutrophils # (Auto) 21.2 x10^3/uL (1.8-7.7) H Lymphocytes # (Auto) 4.0 x10^3/uL (1.0-4.8) Monocytes # (Auto) 2.4 x10^3/uL (0.0-1.1) H Eosinophils # (Auto) 0.0 x10^3/uL (0.0-0.7) Basophils # (Auto) 0.1 x10^3/uL (0.0-0.2) Segmented Neutrophils % 76 % (35-66) H Band Neutrophils % 5 % (0-9) Lymphocytes % 14 % (24-48) L Monocytes % 5 % (0-10) Toxic Granulation Slight Toxic Vacuolation Slight Platelet Estimate Adequate (ADEQUATE) Anisocytosis Slight Sodium Level 126 mmol/L (136-145) L Potassium Level 6.4 mmol/L (3.5-5.1) *H Chloride Level 91 mmol/L (98-107) L Carbon Dioxide Level < 5 mmol/L (21-32) *L Anion Gap (6-14) Blood Urea Nitrogen 41 mg/dL (8-26) H Creatinine 1.7 mg/dL (0.7-1.3) H Estimated GFR (Cockcroft-Gault) 45.8 BUN/Creatinine Ratio 24 (6-20) H Glucose Level 960 mg/dL (70-99) *H Calcium Level 8.5 mg/dL (8.5-10.1) Total Bilirubin 0.4 mg/dL (0.2-1.0) Aspartate Amino Transferase (AST) 20 U/L (15-37) Alanine Aminotransferase (ALT) 30 U/L (16-63) Alkaline Phosphatase 166 U/L (46-116) H Total Protein 5.9 g/dL (6.4-8.2) L Albumin 2.8 g/dL (3.4-5.0) L Albumin/Globulin Ratio 0.9 (1.0-1.7) L Urine Collection Type Unknown Urine Color Yellow Urine Clarity Clear Urine pH 5.0 (<5.0-8.0) Urine Specific [place] 1.020 (1.000-1.030) Urine Protein 30 mg/dL (NEG-TRACE) Urine Glucose (UA) >=1000 mg/dL (NEG) Urine Ketones (Stick) >=80 mg/dL (NEG) Urine Blood Large (NEG) Urine Nitrite Negative (NEG) Urine Bilirubin Negative (NEG) Urine Urobilinogen Dipstick 0.2 mg/dL (0.2 mg/dL) Urine Leukocyte Esterase Negative (NEG) Urine RBC 20-40 /HPF (0-2) Urine WBC Occ /HPF (0-4) Urine Bacteria 0 /HPF (0-FEW) Urine Granular Casts Few /HPF Laboratory Tests 01/30/20 16:53 Laboratory Tests 01/30/20 16:53 Vital Signs: Vital Signs Date Time Temp Pulse Resp B/P (MAP) Pulse Ox O2 Delivery O2 Flow Rate FiO2 01/30/20 18:34 68 93/52 (66) 99 Room Air 01/30/20 16:53 98.7 22 98.7 EKG: EKG: [] Radiology/Procedures: Radiology/Procedures: [] Course & Med Decision Making: Course & Med Decision Making Pertinent Labs and Imaging studies reviewed. (See chart for details) Patient is a 34-year-old male with a past medical history of diabetes who presents the emergency room with symptoms concerning for DKA. The patient is not compliant with their home regimen. On exam, confused, dehydrated, h yperventilating. VBG was done. It was significant for severe acidosis with a bicarb of 1. CBC, BMP, UA, magnesium, phosphorus, venous blood gas were ordered to evaluate for severity at DKA and possible precipitating factors. Normal saline boluses were started. Patient was started on an insulin drip after fluid boluses. At this time patient's potassium is 6.4 and does not need replacement. Patient's other labs were elevated per above. There is not concern for infection at this time. Patient is altered and is protecting their airway. We will hold off on intubating him at this time to prevent worsening acidosis from intubation. It is possible patient may need intubation later if he does not improve. Patient will be admitted for further care. Dragon Disclaimer: Dragon Disclaimer: This electronic medical record was generated, in whole or in part, using a voice recognition dictation system. Critical Care Time Critical Care: Authorized and Performed by: Selena Loyd MD Total critical care time: approximately 60 minutes Due to a high probability of clinically significant, life threatening deterioration, the patient required my highest level of preparedness to intervene emergently and I personally spent this critical care time directly and personally managing the patient. This critical care time included obtaining a history; examining the patient; pulse oximetry; ventilator management if necessary; ordering and review of studies; arranging urgent treatment with development of a management plan; evaluation of patient's response to treatment; frequent reassessment; discussion with patient/family; and, discussions with other providers. This critical care time was performed to assess and manage the high probability of imminent, life-threatening deterioration that could result in multi-organ failure. It was exclusive of separately billable procedures and treating other patients and teaching time. Please see MDM section and the rest of the note for further information on patient assessment and treatment. Departure Departure Impression: Primary Impression: DKA (diabetic ketoacidoses) Disposition: 09 ADMITTED INPATIENT Condition: CRITICAL Referrals: NO PCP (PCP) Justicifation of Admission Dx: Justifications for Admission: Justification of Admission Dx: Yes Stroke - Ischemic: Stroke-Ischemic Acute Hemorrhagic Stroke: Acute Hemorrhagic Stroke DKA: DKA SELENA LOYD MD Jan 30, 2020 18:48
[2020-01-30] MEDS ORDERED: ACETAMINOPHEN 325 MG TABLET. PO PRN (19:00)
[2020-01-30] MEDS ORDERED: DOCUSATE SODIUM 100 MG CAPSULE. PO PRN (19:00)
[2020-01-30] MEDS ORDERED: ONDANSETRON PF 4 MG/2 ML VIAL. IVP PRN (19:00)
[2020-01-30] MEDS ORDERED: DEXTROSE 50% 25 GM / 50ML DISP.SYRIN. IV PRN (19:00)
[2020-01-30] MEDS ORDERED: SENNOSIDES 8.6 MG TABLET PO PRN (19:00)
[2020-01-30] MEDS ORDERED: INSULIN REGULAR IV ONE (19:20)
[2020-01-30] MEDS: INSULIN REGULAR VIAL 100 UNIT in IV NORMAL SALINE 100ML 100 ML IV PRN ×2 (19:25→23:01)
[2020-01-30 20:00] VITALS: BP 98/68
--- NOTE | 2020-01-30 20:00 | NUR ---
pt admitted to room 105 from ED at this time. VSS, on room air and denies pain. pt drowsy but arousable to name, confused about where he is and can be forgetful but is compliant with directions and able to answer some admission questions. pt oriented to room, call light, unit routines, plan of care and schmidt insertion. first glucose upon arrival reading as "high" on glucometer so BMP, Mag and Phos drawn at this time per DKA protocol. will pass on in report, will continue to closely monitor.
[2020-01-30 20:39] LABS: BLOOD UREA NITROGEN 41 mg/dL (8-26); CALCIUM 8.3 mg/dL (8.5-10.1); CHLORIDE 96 mmol/L (98-107); CREATININE 1.6 mg/dL (0.7-1.3); GFR 49.2; MAGNESIUM 2.8 mg/dL (1.8-2.4); PHOSPHORUS 7.4 mg/dL (2.6-4.7); POTASSIUM 5.7 mmol/L (3.5-5.1); SODIUM 130 mmol/L (136-145)
[2020-01-30 20:57] LABS: CARBON DIOXIDE < 5 mmol/L (21-32); GLUCOSE 865 mg/dL (70-99)
[2020-01-30 21:00] VITALS: BP 82/65
[2020-01-30] MEDS: IV NORMAL SALINE 1000ML BAG 1,000 ML IV SCH (21:45)
[2020-01-30 22:00] VITALS: BP 97/57
--- NOTE | 2020-01-30 22:50 | PDOC1 ---
History and Physical Date of Service: DOS: DATE: 01/30/20 TIME: 22:36 Chief Complaint: Chief Complain: ABD pain and N/V History of Present Illness: HPI: History obtained from chart review and discussion with ED physician. 34 yo M with ABD pain and N/V who came to the ED with elevated blood sugars. Patient stated he was taking his insulin by drinking it. Unclear of reason for this. Patient seen and examined by me in the ED. Patient was lethargic by this time and unable to provide and sensible history. He was able to follow commands. Patient is not aggressive or combative. No family members or friends present during time of my interview. Past Medical/Surgical History: PMH/PSH: DM Type I Allergies: Allergies: Coded Allergies: Sulfa (Sulfonamide Antibiotics) (Verified Allergy, Intermediate, Hives, 10/24/15) Family History: Family History: Reviewed and none reported Social History: Social History: Unable to obtain due to lethargy Current Medications: Current Medications Current Medications Sodium Chloride 1,000 ml @ 1,000 mls/hr 1X ONCE IV Last administered on 01/30/20at 16:56; Start 01/30/20 at 16:45; Stop 01/30/20 at 17:44; Status DC Sodium Chloride 1,000 ml @ 1,000 mls/hr 1X ONCE IV Last administered on 01/30/20at 16:56; Start 01/30/20 at 16:45; Stop 01/30/20 at 17:44; Status DC Ceftriaxone Sodium (Rocephin) 1 gm 1X ONCE IVP Last administered on 01/30/20at 18:18; Start 01/30/20 at 17:45; Stop 01/30/20 at 17:46; Status DC Sodium Chloride 1,000 ml @ 250 mls/hr Q4H IV ; Start 01/30/20 at 18:43; Stop 01/30/20 at 21:47; Status DC Dextrose/Sodium Chloride 1,000 ml @ 250 mls/hr Q4H IV ; Start 01/30/20 at 18:43; Stop 01/30/20 at 21:47; Status DC Insulin Human Regular 100 unit/ Sodium Chloride 101 ml @ 0 mls/hr CONT PRN PRN IV PER PROTOCOL Last administered on 01/30/20at 19:25; Start 01/30/20 at 18:45 Potassium Chloride/Water 100 ml @ 100 mls/hr PRN Q1HR PRN IV SEE COMMENTS; Start 01/30/20 at 18:45 Potassium Chloride/Water 100 ml @ 100 mls/hr PRN Q1HR PRN IV SEE COMMENTS; Start 01/30/20 at 18:45 Potassium Chloride/Water 100 ml @ 100 mls/hr PRN Q1HR PRN IV SEE COMMENTS; Start 01/30/20 at 18:45 Sodium Bicarbonate 50 meq/Sodium Chloride 1,050 ml @ 500 mls/hr Q2H6M PRN IV SEE COMMENTS Last administered on 01/30/20at 19:18; Start 01/30/20 at 18:40 Sennosides (Senna) 17.2 mg PRN BID PRN PO CONSTIPATION; Start 01/30/20 at 19:00 Docusate Sodium (Colace) 100 mg PRN DAILY PRN PO HARD STOOLS; Start 01/30/20 at 19:00 Ondansetron HCl (Zofran) 4 mg PRN Q6HRS PRN IVP NAUSEA/VOMITING; Start 01/30/20 at 19:00 Dextrose (Dextrose 50%-Water Syringe) 12.5 gm PRN Q15MIN PRN IV SEE COMMENTS; Start 01/30/20 at 19:00 Acetaminophen (Tylenol) 650 mg PRN Q4HRS PRN PO TEMP OVER 100.4F OR MILD PAIN; Start 01/30/20 at 19:00 Insulin Human Regular 0 ml @ As Directed STK-MED ONCE IV ; Start 01/30/20 at 19:20; Stop 01/30/20 at 19:20; Status DC Sodium Chloride 1,000 ml @ 250 mls/hr Q4H IV Last administered on 01/30/20at 21:45; Start 01/30/20 at 21:45 Active Scripts Active Humalog (Insulin Lispro) 100 Unit/1 Ml Insuln.pen 10 Units SQ TIDWMEALS 30 Days Lantus (Insulin Glargine,Hum.rec.anlog) 100 Unit/1 Ml Vial 20 Unit SQ QHS 30 Days Klor-Con M20 (Potassium Chloride) 20 Meq Tab.er.prt 20 Meq PO DAILYWBKFT 10 Days Reported Keppra (Levetiracetam) 500 Mg Tablet 500 Mg PO BID ROS: Review of Systems Unable to provide due to lethargy Physical Exam: Vital Signs: Vital Signs Date Time Temp Pulse Resp B/P (MAP) Pulse Ox O2 Delivery O2 Flow Rate FiO2 01/30/20 22:00 96 20 97/57 (70) 100 Room Air 01/30/20 20:00 91.0 91.0 Physcial Exam: GEN: No apparent distress. Alert and oriented HEENT: Normal cephalic, atraumatic, external auditory canals are patent EYES: Extraocular muscles are intact, pupil are equally round and reactive to light and accommodation MUSCULOSKELETAL: Well developed , well nourished, good range of motion ENDOCRINE: No thyromegaly was palpated LYMPHATICS: No cervical chain or axillary nodes were noted HEMATOPOIETIC: No bruising NECK: Supple, no JVD, no thyromegaly was noted LUNGS: Clear to auscultation in all lung cole without rhonchi or wheezing HEART: RRR, S!, S2 present. Peripheral pulses intact, no obvious murmurs noted ABDOMEN: Soft, nontender. Positive bowel sounds, no organomegaly, normal bowel sounds EXTREMITIES: Without clubbing, cyanosis, or edema. Pedal pulses intact. Negative Homans sign NEUROLOGIC: Normal speech and tone. A&O x 3, moves all extremities, no obvious focal deficits PSYCHIATRIC: Normal affect, normal mood. Stable SKIN: No ulcerations or rashes, good skin turgor, no jaundice VASCULAR: Good capillary refill, neurovascular bundle appears to be intact Labs: Labs: Laboratory Tests Test 01/30/20 16:40 01/30/20 16:53 01/30/20 17:40 01/30/20 20:15 O2 Saturation 97 % (92-99) Arterial Blood pH 6.72 (7.35-7.45) Arterial Blood pCO2 at Patient Temp < 15 mmHg (35-46) Arterial Blood pO2 at Patient Temp 130 mmHg (85-108) Arterial Blood HCO3 2 mmol/L (21-28) Arterial Blood Base Excess -34 mmol/L (-3-3) FiO2 Room air White Blood Count 27.7 x10^3/uL (4.0-11.0) Red Blood Count 4.32 x10^6/uL (4.30-5.70) Hemoglobin 12.1 g/dL (13.0-17.5) Hematocrit 42.8 % (39.0-53.0) Mean Corpuscular Volume 99 fL (79-100) Mean Corpuscular Hemoglobin 28 pg (25-35) Mean Corpuscular Hemoglobin Concent 28 g/dL (31-37) Red Cell Distribution Width 14.8 % (11.5-14.5) Platelet Count 288 x10^3/uL (140-400) Neutrophils (%) (Auto) 76 % (31-73) Lymphocytes (%) (Auto) 15 % (24-48) Monocytes (%) (Auto) 9 % (0-9) Eosinophils (%) (Auto) 0 % (0-3) Basophils (%) (Auto) 0 % (0-3) Neutrophils # (Auto) 21.2 x10^3/uL (1.8-7.7) Lymphocytes # (Auto) 4.0 x10^3/uL (1.0-4.8) Monocytes # (Auto) 2.4 x10^3/uL (0.0-1.1) Eosinophils # (Auto) 0.0 x10^3/uL (0.0-0.7) Basophils # (Auto) 0.1 x10^3/uL (0.0-0.2) Segmented Neutrophils % 76 % (35-66) Band Neutrophils % 5 % (0-9) Lymphocytes % 14 % (24-48) Monocytes % 5 % (0-10) Toxic Granulation Slight Toxic Vacuolation Slight Platelet Estimate Adequate (ADEQUATE) Anisocytosis Slight Sodium Level 126 mmol/L (136-145) 130 mmol/L (136-145) Potassium Level 6.4 mmol/L (3.5-5.1) 5.7 mmol/L (3.5-5.1) Chloride Level 91 mmol/L (98-107) 96 mmol/L (98-107) Carbon Dioxide Level < 5 mmol/L (21-32) < 5 mmol/L (21-32) Anion Gap (6-14) (6-14) Blood Urea Nitrogen 41 mg/dL (8-26) 41 mg/dL (8-26) Creatinine 1.7 mg/dL (0.7-1.3) 1.6 mg/dL (0.7-1.3) Estimated GFR (Cockcroft-Gault) 45.8 49.2 BUN/Creatinine Ratio 24 (6-20) Glucose Level 960 mg/dL (70-99) 865 mg/dL (70-99) Calcium Level 8.5 mg/dL (8.5-10.1) 8.3 mg/dL (8.5-10.1) Magnesium Level 2.8 mg/dL (1.8-2.4) 2.8 mg/dL (1.8-2.4) Total Bilirubin 0.4 mg/dL (0.2-1.0) Aspartate Amino Transf (AST/SGOT) 20 U/L (15-37) Alanine Aminotransferase (ALT/SGPT) 30 U/L (16-63) Alkaline Phosphatase 166 U/L (46-116) Total Protein 5.9 g/dL (6.4-8.2) Albumin 2.8 g/dL (3.4-5.0) Albumin/Globulin Ratio 0.9 (1.0-1.7) Urine Collection Type Unknown Urine Color Yellow Urine Clarity Clear Urine pH 5.0 (<5.0-8.0) Urine Specific [place] 1.020 (1.000-1.030) Urine Protein 30 mg/dL (NEG-TRACE) Urine Glucose (UA) >=1000 mg/dL (NEG) Urine Ketones (Stick) >=80 mg/dL (NEG) Urine Blood Large (NEG) Urine Nitrite Negative (NEG) Urine Bilirubin Negative (NEG) Urine Urobilinogen Dipstick 0.2 mg/dL (0.2 mg/dL) Urine Leukocyte Esterase Negative (NEG) Urine RBC 20-40 /HPF (0-2) Urine WBC Occ /HPF (0-4) Urine Bacteria 0 /HPF (0-FEW) Urine Granular Casts Few /HPF Phosphorus Level 7.4 mg/dL (2.6-4.7) Laboratory Tests Test 01/30/20 16:40 01/30/20 16:53 01/30/20 17:40 01/30/20 20:15 O2 Saturation 97 % (92-99) Arterial Blood pH 6.72 (7.35-7.45) Arterial Blood pCO2 at Patient Temp < 15 mmHg (35-46) Arterial Blood pO2 at Patient Temp 130 mmHg (85-108) Arterial Blood HCO3 2 mmol/L (21-28) Arterial Blood Base Excess -34 mmol/L (-3-3) FiO2 Room air White Blood Count 27.7 x10^3/uL (4.0-11.0) Red Blood Count 4.32 x10^6/uL (4.30-5.70) Hemoglobin 12.1 g/dL (13.0-17.5) Hematocrit 42.8 % (39.0-53.0) Mean Corpuscular Volume 99 fL (79-100) Mean Corpuscular Hemoglobin 28 pg (25-35) Mean Corpuscular Hemoglobin Concent 28 g/dL (31-37) Red Cell Distribution Width 14.8 % (11.5-14.5) Platelet Count 288 x10^3/uL (140-400) Neutrophils (%) (Auto) 76 % (31-73) Lymphocytes (%) (Auto) 15 % (24-48) Monocytes (%) (Auto) 9 % (0-9) Eosinophils (%) (Auto) 0 % (0-3) Basophils (%) (Auto) 0 % (0-3) Neutrophils # (Auto) 21.2 x10^3/uL (1.8-7.7) Lymphocytes # (Auto) 4.0 x10^3/uL (1.0-4.8) Monocytes # (Auto) 2.4 x10^3/uL (0.0-1.1) Eosinophils # (Auto) 0.0 x10^3/uL (0.0-0.7) Basophils # (Auto) 0.1 x10^3/uL (0.0-0.2) Segmented Neutrophils % 76 % (35-66) Band Neutrophils % 5 % (0-9) Lymphocytes % 14 % (24-48) Monocytes % 5 % (0-10) Toxic Granulation Slight Toxic Vacuolation Slight Platelet Estimate Adequate (ADEQUATE) Anisocytosis Slight Sodium Level 126 mmol/L (136-145) 130 mmol/L (136-145) Potassium Level 6.4 mmol/L (3.5-5.1) 5.7 mmol/L (3.5-5.1) Chloride Level 91 mmol/L (98-107) 96 mmol/L (98-107) Carbon Dioxide Level < 5 mmol/L (21-32) < 5 mmol/L (21-32) Anion Gap (6-14) (6-14) Blood Urea Nitrogen 41 mg/dL (8-26) 41 mg/dL (8-26) Creatinine 1.7 mg/dL (0.7-1.3) 1.6 mg/dL (0.7-1.3) Estimated GFR (Cockcroft-Gault) 45.8 49.2 BUN/Creatinine Ratio 24 (6-20) Glucose Level 960 mg/dL (70-99) 865 mg/dL (70-99) Calcium Level 8.5 mg/dL (8.5-10.1) 8.3 mg/dL (8.5-10.1) Magnesium Level 2.8 mg/dL (1.8-2.4) 2.8 mg/dL (1.8-2.4) Total Bilirubin 0.4 mg/dL (0.2-1.0) Aspartate Amino Transf (AST/SGOT) 20 U/L (15-37) Alanine Aminotransferase (ALT/SGPT) 30 U/L (16-63) Alkaline Phosphatase 166 U/L (46-116) Total Protein 5.9 g/dL (6.4-8.2) Albumin 2.8 g/dL (3.4-5.0) Albumin/Globulin Ratio 0.9 (1.0-1.7) Urine Collection Type Unknown Urine Color Yellow Urine Clarity Clear Urine pH 5.0 (<5.0-8.0) Urine Specific [place] 1.020 (1.000-1.030) Urine Protein 30 mg/dL (NEG-TRACE) Urine Glucose (UA) >=1000 mg/dL (NEG) Urine Ketones (Stick) >=80 mg/dL (NEG) Urine Blood Large (NEG) Urine Nitrite Negative (NEG) Urine Bilirubin Negative (NEG) Urine Urobilinogen Dipstick 0.2 mg/dL (0.2 mg/dL) Urine Leukocyte Esterase Negative (NEG) Urine RBC 20-40 /HPF (0-2) Urine WBC Occ /HPF (0-4) Urine Bacteria 0 /HPF (0-FEW) Urine Granular Casts Few /HPF Phosphorus Level 7.4 mg/dL (2.6-4.7) Assessment/Plan Assessment/Plan DKA with AGMA Acute electrolyte derangements - hyperkalemia, hyponatremia Volume Depletion MARQUIS due to vasomotor nephropathy Severe protein malnutrition Uncontrolled DM Type I Admit to ICU for insulin and close glucose management and AG trend. RBG of 960 on admission, Urine ketones + - thorough inspection and examination for precipitous causes of ketoacidotic state - Start 0.1 U/kg / hr IV insulin gtt - when glucose < 200, AG is closed, patient able to eat, and HCO3 > 15, then transition with SC insulin 0.1 U/kg q2h for least 2 hours - continue IVF 1-1.5L per hour until a total of 5 L replenished - can switch to 1/2NS at half the rate if Na is normal or elevated - PRN dextrose to IVF if accucheck are < 200 - maintain K+ between 3.5-5.0. If falls < 3.3, stop insulin momentarily and add 40mEq/hr of K+ - maintain PO3 > 1.0 - expect fall of glucose of at least 50-70 / hr - If the arterial pH is below 6.90, give 100 mEq of sodium bicarbonate plus 20 mEq of potassium chloride may be repeated if venous pH remains < 7.00 - q2-4h BMP and ABG check until stable - q1h accucheck Lovenox for DVT prophylaxis Full code NPO MPOA is undesignated Total critical care time spen is 45 min Justifications for Admission General Conditions Poss tachycardia?: Yes Justification for admission: Patient has tachycardia (> 100 beats per minute) which is not readily corrected by appropriate treatment within 12 to 24 hours. Elevated Lactate?: Yes Justification for admission: Patient has tachycardia (> 100 beats per minute) or hypotension (SBP < 90 mm Hg) leading to inadequate systemic perfusion as indicated by lactate of greater or equal to 2.5 mmol/L. Poss Metaboilic Acidosis?: Yes Justification for admission: Patient has tachycardia (> 100 beats per minute) or hypotension (SBP < 90 mm Hg) leading to inadequate systemic perfusion as indicated by metabolic acidosis with arterial pH of less than 7.35. Other Justification ROSS GARCIA MD Jan 30, 2020 22:50
[2020-01-30 23:00] VITALS: BP 87/55
[2020-01-30 23:25] LABS: BASE EXCESS ABG -26 mmol/L (-3-3); HCO3 ABG 4 mmol/L (21-28)
[2020-01-30 23:28] LABS: PCO2 ABG 18 mmHg (35-46)
[2020-01-30 23:29] LABS: FIO2 ABG 21
[2020-01-30] MEDS ORDERED: SODIUM BICARBONATE VIAL 50 MEQ in IV 1/2 NORMAL SALINE 1,000 ML IV SCH (23:45)
[2020-01-31] VITALS (21 sets, daily range): BP systolic 80–132; BP diastolic 40–66
[2020-01-31 01:11] LABS: CALCIUM 7.9 mg/dL (8.5-10.1); CREATININE 1.3 mg/dL (0.7-1.3); GFR 62.5; MAGNESIUM 2.2 mg/dL (1.8-2.4); PHOSPHORUS 1.5 mg/dL (2.6-4.7); POTASSIUM 3.6 mmol/L (3.5-5.1)
[2020-01-31] MEDS: IV NORMAL SALINE 1000ML BAG 1,000 ML IV SCH ×2 (01:45→06:15)
[2020-01-31] MEDS: POTASSIUM CHLORIDE 10MEQ 100 ML IV PRN ×4 (02:08→05:17)
[2020-01-31 06:03] LABS: BASO % 0 % (0-3); EOS % 0 % (0-3); HEMOGLOBIN 11.3 g/dL (13.0-17.5); LYMPH # 2.7 x10^3/uL (1.0-4.8); LYMPH % 12 % (24-48); MEAN CORPUSCULAR HEMOGLOBIN 28 pg (25-35); MEAN CORPUSCULAR HGB CONC 33 g/dL (31-37); MEAN CORPUSCULAR VOLUME 85 fL (79-100); MONO # 2.3 x10^3/uL (0.0-1.1); MONO % 11 % (0-9); NEUT # 16.6 x10^3/uL (1.8-7.7); NEUT % 77 % (31-73); PLATELET COUNT 215 x10^3/uL (140-400); RED BLOOD COUNT 3.99 x10^6/uL (4.30-5.70); RED CELL DISTRIBUTION WIDTH 13.5 % (11.5-14.5); WHITE BLOOD COUNT 21.6 x10^3/uL (4.0-11.0)
[2020-01-31 06:06] LABS: CALCIUM 8.1 mg/dL (8.5-10.1); CREATININE 1.2 mg/dL (0.7-1.3); GFR 68.5; POTASSIUM 3.8 mmol/L (3.5-5.1)
[2020-01-31 06:10] LABS: MAGNESIUM 1.9 mg/dL (1.8-2.4); PHOSPHORUS 0.8 mg/dL (2.6-4.7)
[2020-01-31] MEDS: IV DEXTROSE 5 %-0.45 % NACL 1,000 ML IV SCH ×3 (06:18→14:15)
[2020-01-31] MEDS ORDERED: NORMAL SALINE IV ONE (07:00)
[2020-01-31] MEDS ORDERED: SODIUM PHOSPHATE IV ONE (07:00)
[2020-01-31 08:33] LABS: BASE EXCESS ABG -6 mmol/L (-3-3); HCO3 ABG 19 mmol/L (21-28); PCO2 ABG 34 mmHg (35-46); PO2 ABG 87 mmHg (85-108); SAT O2 ABG 97 % (92-99)
[2020-01-31 08:45] LABS: FIO2 ABG 21
--- NOTE | 2020-01-31 09:11 | PDOC ---
[employer] PROGRESS NOTE Date of Service DOS: DATE: 01/31/20 TIME: 08:57 Chief Complaint Chief Complaint A/P: DKA (diabetic ketoacidoses) - insulin GTT, q6hr labs, phos, mag. Glucose 723 MARQUIS - likely vasomotor nephropathy due to DKA. BUN 46, Cr 1.6 Hyperkalemia - K 5.9, will give IVF Hyponatremia - Na 125, likely 2/2 DKA, will replace, trend glucose Leukocytosis - WBC 37.1, likely DKA related. No clear infectious source Acute metabolic acidosis - ABG pH 6.77, PCO2 15, PO2 167, DKA related Acute encephalopathy - likely amphetamine and DKA related, metabolic, will follow up Hypothermia - meets SIRS criteria, almost certainly 2/2 DKA, will give fluids Methamphetamine abuse - counseled on cessation FEN - NPO PPX - Lovenox FULL CODE Dispo - ICU for severe DKA cc time 45 minutes History of Present Illness History of Present Illness Mr Camacho is a 34 yo M with PMHx Type 1 DM, methamphetamine abuse who p/w ABD pain and N/V who came to the ED with elevated blood sugars. Patient seen and examined by me in the ED. Patient was lethargic by this time and unable to provide and sensible history. He was able to follow commands. Patient is not aggressive or combative. WBC elevated, pH 6.8. Admitted to ICU in DKA. Phos 0.8 today. Abdominal pain resolved. Asking for diet. Gap closed. Vitals/I&O Vitals/I&O: Vital Signs Date Time Temp Pulse Resp B/P (MAP) Pulse Ox O2 Delivery O2 Flow Rate FiO2 01/31/20 06:00 100 22 91/52 (65) 99 Room Air 01/31/20 04:00 98.0 98.0 I & O 01/30/20 01/30/20 01/31/20 15:00 23:00 07:00 Intake Total 3000 ml 2342.6 ml Output Total 650 ml 2125 ml Balance 2350 ml 217.6 ml Physical Exam General: Alert, Oriented X3, Cooperative Heart: Regular rate, Normal S1, Normal S2 Lungs: Clear Abdomen: Normal bowel sounds, Soft Extremities: No clubbing, No cyanosis Skin: No rashes, No breakdown Labs Labs: Laboratory Tests Test 01/30/20 16:40 01/30/20 16:53 01/30/20 17:40 01/30/20 20:15 O2 Saturation 97 % (92-99) Arterial Blood pH 6.72 (7.35-7.45) Arterial Blood pCO2 at Patient Temp < 15 mmHg (35-46) Arterial Blood pO2 at Patient Temp 130 mmHg (85-108) Arterial Blood HCO3 2 mmol/L (21-28) Arterial Blood Base Excess -34 mmol/L (-3-3) FiO2 Room air White Blood Count 27.7 x10^3/uL (4.0-11.0) Red Blood Count 4.32 x10^6/uL (4.30-5.70) Hemoglobin 12.1 g/dL (13.0-17.5) Hematocrit 42.8 % (39.0-53.0) Mean Corpuscular Volume 99 fL (79-100) Mean Corpuscular Hemoglobin 28 pg (25-35) Mean Corpuscular Hemoglobin Concent 28 g/dL (31-37) Red Cell Distribution Width 14.8 % (11.5-14.5) Platelet Count 288 x10^3/uL (140-400) Neutrophils (%) (Auto) 76 % (31-73) Lymphocytes (%) (Auto) 15 % (24-48) Monocytes (%) (Auto) 9 % (0-9) Eosinophils (%) (Auto) 0 % (0-3) Basophils (%) (Auto) 0 % (0-3) Neutrophils # (Auto) 21.2 x10^3/uL (1.8-7.7) Lymphocytes # (Auto) 4.0 x10^3/uL (1.0-4.8) Monocytes # (Auto) 2.4 x10^3/uL (0.0-1.1) Eosinophils # (Auto) 0.0 x10^3/uL (0.0-0.7) Basophils # (Auto) 0.1 x10^3/uL (0.0-0.2) Segmented Neutrophils % 76 % (35-66) Band Neutrophils % 5 % (0-9) Lymphocytes % 14 % (24-48) Monocytes % 5 % (0-10) Toxic Granulation Slight Toxic Vacuolation Slight Platelet Estimate Adequate (ADEQUATE) Anisocytosis Slight Sodium Level 126 mmol/L (136-145) 130 mmol/L (136-145) Potassium Level 6.4 mmol/L (3.5-5.1) 5.7 mmol/L (3.5-5.1) Chloride Level 91 mmol/L (98-107) 96 mmol/L (98-107) Carbon Dioxide Level < 5 mmol/L (21-32) < 5 mmol/L (21-32) Anion Gap (6-14) (6-14) Blood Urea Nitrogen 41 mg/dL (8-26) 41 mg/dL (8-26) Creatinine 1.7 mg/dL (0.7-1.3) 1.6 mg/dL (0.7-1.3) Estimated GFR (Cockcroft-Gault) 45.8 49.2 BUN/Creatinine Ratio 24 (6-20) Glucose Level 960 mg/dL (70-99) 865 mg/dL (70-99) Calcium Level 8.5 mg/dL (8.5-10.1) 8.3 mg/dL (8.5-10.1) Magnesium Level 2.8 mg/dL (1.8-2.4) 2.8 mg/dL (1.8-2.4) Total Bilirubin 0.4 mg/dL (0.2-1.0) Aspartate Amino Transf (AST/SGOT) 20 U/L (15-37) Alanine Aminotransferase (ALT/SGPT) 30 U/L (16-63) Alkaline Phosphatase 166 U/L (46-116) Total Protein 5.9 g/dL (6.4-8.2) Albumin 2.8 g/dL (3.4-5.0) Albumin/Globulin Ratio 0.9 (1.0-1.7) Urine Collection Type Unknown Urine Color Yellow Urine Clarity Clear Urine pH 5.0 (<5.0-8.0) Urine Specific [place] 1.020 (1.000-1.030) Urine Protein 30 mg/dL (NEG-TRACE) Urine Glucose (UA) >=1000 mg/dL (NEG) Urine Ketones (Stick) >=80 mg/dL (NEG) Urine Blood Large (NEG) Urine Nitrite Negative (NEG) Urine Bilirubin Negative (NEG) Urine Urobilinogen Dipstick 0.2 mg/dL (0.2 mg/dL) Urine Leukocyte Esterase Negative (NEG) Urine RBC 20-40 /HPF (0-2) Urine WBC Occ /HPF (0-4) Urine Bacteria 0 /HPF (0-FEW) Urine Granular Casts Few /HPF Phosphorus Level 7.4 mg/dL (2.6-4.7) Test 01/30/20 22:20 01/30/20 23:23 01/30/20 23:54 01/31/20 00:42 Glucose Level 642 mg/dL (70-99) 429 mg/dL (70-99) O2 Saturation % (92-99) Arterial Blood pH 6.98 (7.35-7.45) Arterial Blood pCO2 at Patient Temp 18 mmHg (35-46) Arterial Blood pO2 at Patient Temp mmHg (85-108) Arterial Blood HCO3 4 mmol/L (21-28) Arterial Blood Base Excess -26 mmol/L (-3-3) FiO2 21 Glucose (Fingerstick) 438 mg/dL (70-99) Sodium Level 139 mmol/L (136-145) Potassium Level 3.6 mmol/L (3.5-5.1) Chloride Level 105 mmol/L (98-107) Carbon Dioxide Level 6 mmol/L (21-32) Anion Gap 28 (6-14) Blood Urea Nitrogen 37 mg/dL (8-26) Creatinine 1.3 mg/dL (0.7-1.3) Estimated GFR (Cockcroft-Gault) 62.5 Calcium Level 7.9 mg/dL (8.5-10.1) Phosphorus Level 1.5 mg/dL (2.6-4.7) Magnesium Level 2.2 mg/dL (1.8-2.4) Test 01/31/20 00:58 01/31/20 02:09 01/31/20 03:14 01/31/20 04:13 Glucose (Fingerstick) 352 mg/dL (70-99) 293 mg/dL (70-99) 265 mg/dL (70-99) 228 mg/dL (70-99) Test 01/31/20 05:00 01/31/20 05:20 01/31/20 06:20 01/31/20 07:24 White Blood Count 21.6 x10^3/uL (4.0-11.0) Red Blood Count 3.99 x10^6/uL (4.30-5.70) Hemoglobin 11.3 g/dL (13.0-17.5) Hematocrit 34.0 % (39.0-53.0) Mean Corpuscular Volume 85 fL (79-100) Mean Corpuscular Hemoglobin 28 pg (25-35) Mean Corpuscular Hemoglobin Concent 33 g/dL (31-37) Red Cell Distribution Width 13.5 % (11.5-14.5) Platelet Count 215 x10^3/uL (140-400) Neutrophils (%) (Auto) 77 % (31-73) Lymphocytes (%) (Auto) 12 % (24-48) Monocytes (%) (Auto) 11 % (0-9) Eosinophils (%) (Auto) 0 % (0-3) Basophils (%) (Auto) 0 % (0-3) Neutrophils # (Auto) 16.6 x10^3/uL (1.8-7.7) Lymphocytes # (Auto) 2.7 x10^3/uL (1.0-4.8) Monocytes # (Auto) 2.3 x10^3/uL (0.0-1.1) Eosinophils # (Auto) 0.0 x10^3/uL (0.0-0.7) Basophils # (Auto) 0.0 x10^3/uL (0.0-0.2) Sodium Level 141 mmol/L (136-145) Potassium Level 3.8 mmol/L (3.5-5.1) Chloride Level 110 mmol/L (98-107) Carbon Dioxide Level 15 mmol/L (21-32) Anion Gap 16 (6-14) Blood Urea Nitrogen 30 mg/dL (8-26) Creatinine 1.2 mg/dL (0.7-1.3) Estimated GFR (Cockcroft-Gault) 68.5 Glucose Level 175 mg/dL (70-99) Calcium Level 8.1 mg/dL (8.5-10.1) Phosphorus Level 0.8 mg/dL (2.6-4.7) Magnesium Level 1.9 mg/dL (1.8-2.4) Glucose (Fingerstick) 159 mg/dL (70-99) 128 mg/dL (70-99) 130 mg/dL (70-99) Test 01/31/20 08:30 O2 Saturation 97 % (92-99) Arterial Blood pH 7.36 (7.35-7.45) Arterial Blood pCO2 at Patient Temp 34 mmHg (35-46) Arterial Blood pO2 at Patient Temp 87 mmHg (85-108) Arterial Blood HCO3 19 mmol/L (21-28) Arterial Blood Base Excess -6 mmol/L (-3-3) FiO2 21 Glucose (Fingerstick) 141 mg/dL (70-99) Assessment and Plan Assessmemt and Plan Problems Medical Problems: (1) DKA (diabetic ketoacidoses) Status: Acute Comment Review of Relevant I have reviewed the following items jaleesa (where applicable) has been applied. Medications: Current Medications Medications (Trade) Dose Ordered Sig/Beverly Route PRN Reason Start Time Stop Time Status Last Admin Dose Admin Sodium Chloride 1,000 ml @ 1,000 mls/hr 1X ONCE IV 01/30/20 16:45 01/30/20 17:44 DC 01/30/20 16:56 Sodium Chloride 1,000 ml @ 1,000 mls/hr 1X ONCE IV 01/30/20 16:45 01/30/20 17:44 DC 01/30/20 16:56 Ceftriaxone Sodium (Rocephin) 1 gm 1X ONCE IVP 01/30/20 17:45 01/30/20 17:46 DC 01/30/20 18:18 Insulin Human Regular 100 unit/ Sodium Chloride 101 ml @ 0 mls/hr CONT PRN PRN IV PER PROTOCOL 01/30/20 18:45 01/30/20 23:01 Potassium Chloride/Water 100 ml @ 100 mls/hr PRN Q1HR PRN IV SEE COMMENTS 01/30/20 18:45 01/31/20 05:17 Sodium Bicarbonate 50 meq/Sodium Chloride 1,050 ml @ 500 mls/hr Q2H6M PRN IV SEE COMMENTS 01/30/20 18:40 01/30/20 19:18 Acetaminophen (Tylenol) 650 mg PRN Q4HRS PRN PO TEMP OVER 100.4F OR MILD PAIN 01/30/20 19:00 01/31/20 01:54 Sodium Chloride 1,000 ml @ 250 mls/hr Q4H IV 01/30/20 21:45 01/31/20 06:15 DC 01/31/20 01:45 Sodium Bicarbonate 50 meq/Sodium Chloride 1,050 ml @ 500 mls/hr Q2H6M IV 01/30/20 23:45 01/31/20 01:44 DC 01/30/20 23:55 Dextrose/Sodium Chloride 1,000 ml @ 250 mls/hr Q4H IV 01/31/20 06:15 01/31/20 06:18 Justifications for Admission General Conditions Poss tachycardia?: Yes Justification for admission: Patient has tachycardia (> 100 beats per minute) which is not readily corrected by appropriate treatment within 12 to 24 hours. Elevated Lactate?: Yes Justification for admission: Patient has tachycardia (> 100 beats per minute) or hypotension (SBP < 90 mm Hg) leading to inadequate systemic perfusion as indicated by lactate of greater or equal to 2.5 mmol/L. Poss Metaboilic Acidosis?: Yes Justification for admission: Patient has tachycardia (> 100 beats per minute) or hypotension (SBP < 90 mm Hg) leading to inadequate systemic perfusion as indicated by metabolic acidosis with arterial pH of less than 7.35. Other Justification JERONIMO BOWENS MD Jan 31, 2020 09:11
[2020-01-31 09:24] LABS: CALCIUM 7.7 mg/dL (8.5-10.1); CREATININE 1.1 mg/dL (0.7-1.3); GFR 75.7; MAGNESIUM 1.7 mg/dL (1.8-2.4); PHOSPHORUS 1.6 mg/dL (2.6-4.7); POTASSIUM 3.9 mmol/L (3.5-5.1)
[2020-01-31] MEDS ORDERED: levETIRAcetam 500 MG in IV DEXTROSE 5% 100ML 100 ML IV SCH (09:30)
[2020-01-31] MEDS ORDERED: INSULIN GLARGINE SYRINGE. SQ ONE (09:45)
[2020-01-31] MEDS: POTASSIUM CHLORIDE 20 MEQ TABLET.ER. PO SCH (10:32)
[2020-01-31] MEDS: levETIRAcetam 500 MG TABLET PO SCH ×2 (10:32→21:05)
[2020-01-31] MEDS: INSULIN LISPRO 300 UNITS/3 ML VIAL. SQ SCH ×2 (12:00→17:34)
[2020-01-31 14:26] LABS: CALCIUM 7.5 mg/dL (8.5-10.1); CREATININE 0.9 mg/dL (0.7-1.3); GFR 95.5; PHOSPHORUS 4.2 mg/dL (2.6-4.7); POTASSIUM 4.1 mmol/L (3.5-5.1)
--- NOTE | 2020-01-31 15:04 | NUR ---
SS following for discharge planning. SS reviewed pt chart and discussed with pt RN. Pt is from home and is currently on room air. Pt is self pay. SS will continue to follow for discharge planning.
--- NOTE | 2020-01-31 15:26 | NUR ---
Patient refused to eat lunch and did not receive insulin at lunch. Patient sleeping but wakes to drink fluids.
[2020-01-31] MEDS: MAGNESIUM OXIDE 400 MG TABLET PO SCH ×2 (15:49→21:05)
[2020-01-31] MEDS: POTASSIUM & SODIUM PHOSPHATES PACKET. PO SCH (15:50)
[2020-01-31] MEDS ORDERED: INSULIN GLARGINE SYRINGE. SQ SCH (21:00)
[2020-02-01 03:00] VITALS: BP 111/68
--- NOTE | 2020-02-01 05:25 | EKG ---
[facility] [address] [place] [address] Test Date: 2020-01-30 Test Time: 17:08:18 Pat Name: CHIKI GIBSON Department: Room: 105 1 Gender: M Ob Gyn: : 1985 Requested By: SELENA LIAO Order Number: [id number] Reading MD: Measurements Intervals [place] Rate: 72 P: 90 DE: 170 QRS: 79 QRSD: 130 T: 48 QT: 450 QTc: 495 Interpretive Statements SINUS RHYTHM NON SPECIFIC INTRAVENTRICULAR BLOCK ABNORMAL ECG RI6.02 No previous ECG available for comparison
[2020-02-01 06:27] LABS: BASO % 0 % (0-3); EOS % 0 % (0-3); HEMATOCRIT 33.1 % (39.0-53.0); HEMOGLOBIN 11.2 g/dL (13.0-17.5); LYMPH # 2.3 x10^3/uL (1.0-4.8); LYMPH % 14 % (24-48); MEAN CORPUSCULAR HEMOGLOBIN 29 pg (25-35); MEAN CORPUSCULAR HGB CONC 34 g/dL (31-37); MEAN CORPUSCULAR VOLUME 85 fL (79-100); MONO # 1.2 x10^3/uL (0.0-1.1); MONO % 7 % (0-9); NEUT % 79 % (31-73); PLATELET COUNT 186 x10^3/uL (140-400); RED BLOOD COUNT 3.89 x10^6/uL (4.30-5.70); RED CELL DISTRIBUTION WIDTH 14.4 % (11.5-14.5); WHITE BLOOD COUNT 16.5 x10^3/uL (4.0-11.0)
[2020-02-01 06:34] LABS: CALCIUM 7.6 mg/dL (8.5-10.1); CREATININE 0.9 mg/dL (0.7-1.3); GFR 95.5; MAGNESIUM 1.8 mg/dL (1.8-2.4); POTASSIUM 3.8 mmol/L (3.5-5.1)
[2020-02-01 07:00] VITALS: BP 124/77
[2020-02-01] MEDS: POTASSIUM & SODIUM PHOSPHATES PACKET. PO SCH (08:13)
[2020-02-01] MEDS: POTASSIUM CHLORIDE 20 MEQ TABLET.ER. PO SCH (08:13)
[2020-02-01] MEDS: levETIRAcetam 500 MG TABLET PO SCH (08:13)
[2020-02-01] MEDS: MAGNESIUM OXIDE 400 MG TABLET PO SCH (08:14)
[2020-02-01] MEDS: INSULIN LISPRO 300 UNITS/3 ML VIAL. SQ SCH (08:14)
[2020-02-01] MEDS ORDERED: DEXTROSE 50% 25 GM / 50ML DISP.SYRIN. IV PRN (08:30)
--- NOTE | 2020-02-01 08:32 | PDOC ---
[employer] PROGRESS NOTE Date of Service DOS: DATE: 02/01/20 TIME: 08:31 Chief Complaint Chief Complaint A/P: DKA (diabetic ketoacidoses) - gap closed MARQUIS - resolved Hypophosphatemia - replaced Hyponatremia - Leukocytosis - likely DKA related. No clear infectious source Acute metabolic acidosis - resolved Acute encephalopathy - likely metabolic, DKA related, resolved History of Methamphetamine abuse - counseled on cessation Ok to d/c home History of Present Illness History of Present Illness Mr Camacho is a 34 yo M with PMHx Type 1 DM, methamphetamine abuse who p/w ABD pain and N/V who came to the ED with elevated blood sugars. Patient seen and ex amined by me in the ED. Patient was lethargic by this time and unable to provide and sensible history. He was able to follow commands. Patient is not aggressive or combative. WBC elevated, pH 6.8. Admitted to ICU in DKA. 01/30: Phos 0.8 today. Abdominal pain resolved. Asking for diet. Gap closed. Afebrile. WBC down to 16.5. Glucose still in the 200s despite large coverage. eating well. ready for discharge home. Educated on insulin dosing Vitals/I&O Vitals/I&O: Vital Signs Date Time Temp Pulse Resp B/P (MAP) Pulse Ox O2 Delivery O2 Flow Rate FiO2 02/01/20 07:34 Room Air 02/01/20 07:00 98.9 88 16 124/77 (93) 100 98.9 I & O 01/31/20 01/31/20 02/01/20 14:59 22:59 06:59 Intake Total 2835.6967 ml 480 ml 1470 ml Output Total 1325 ml 2135 ml 1370 ml Balance 1510.6967 ml -1655 ml 100 ml Physical Exam General: Alert, Oriented X3, Cooperative Heart: Regular rate, Normal S1, Normal S2 Lungs: Clear Abdomen: Normal bowel sounds, Soft Extremities: No clubbing, No cyanosis Skin: No rashes, No breakdown Labs Labs: Laboratory Tests Test 01/31/20 08:50 01/31/20 10:12 01/31/20 11:19 01/31/20 12:45 Sodium Level 139 mmol/L (136-145) Potassium Level 3.9 mmol/L (3.5-5.1) Chloride Level 109 mmol/L (98-107) Carbon Dioxide Level 22 mmol/L (21-32) Anion Gap 8 (6-14) Blood Urea Nitrogen 28 mg/dL (8-26) Creatinine 1.1 mg/dL (0.7-1.3) Estimated GFR (Cockcroft-Gault) 75.7 Glucose Level 156 mg/dL (70-99) Calcium Level 7.7 mg/dL (8.5-10.1) Phosphorus Level 1.6 mg/dL (2.6-4.7) Magnesium Level 1.7 mg/dL (1.8-2.4) Glucose (Fingerstick) 99 mg/dL (70-99) 165 mg/dL (70-99) 176 mg/dL (70-99) Test 01/31/20 13:48 01/31/20 17:29 01/31/20 21:03 02/01/20 05:15 Sodium Level 138 mmol/L (136-145) 140 mmol/L (136-145) Potassium Level 4.1 mmol/L (3.5-5.1) 3.8 mmol/L (3.5-5.1) Chloride Level 106 mmol/L (98-107) 107 mmol/L (98-107) Carbon Dioxide Level 20 mmol/L (21-32) 28 mmol/L (21-32) Anion Gap 12 (6-14) 5 (6-14) Blood Urea Nitrogen 23 mg/dL (8-26) 12 mg/dL (8-26) Creatinine 0.9 mg/dL (0.7-1.3) 0.9 mg/dL (0.7-1.3) Estimated GFR (Cockcroft-Gault) 95.5 95.5 Glucose Level 220 mg/dL (70-99) 251 mg/dL (70-99) Calcium Level 7.5 mg/dL (8.5-10.1) 7.6 mg/dL (8.5-10.1) Phosphorus Level 4.2 mg/dL (2.6-4.7) Glucose (Fingerstick) 287 mg/dL (70-99) 268 mg/dL (70-99) White Blood Count 16.5 x10^3/uL (4.0-11.0) Red Blood Count 3.89 x10^6/uL (4.30-5.70) Hemoglobin 11.2 g/dL (13.0-17.5) Hematocrit 33.1 % (39.0-53.0) Mean Corpuscular Volume 85 fL (79-100) Mean Corpuscular Hemoglobin 29 pg (25-35) Mean Corpuscular Hemoglobin Concent 34 g/dL (31-37) Red Cell Distribution Width 14.4 % (11.5-14.5) Platelet Count 186 x10^3/uL (140-400) Neutrophils (%) (Auto) 79 % (31-73) Lymphocytes (%) (Auto) 14 % (24-48) Monocytes (%) (Auto) 7 % (0-9) Eosinophils (%) (Auto) 0 % (0-3) Basophils (%) (Auto) 0 % (0-3) Neutrophils # (Auto) 13.0 x10^3/uL (1.8-7.7) Lymphocytes # (Auto) 2.3 x10^3/uL (1.0-4.8) Monocytes # (Auto) 1.2 x10^3/uL (0.0-1.1) Eosinophils # (Auto) 0.0 x10^3/uL (0.0-0.7) Basophils # (Auto) 0.0 x10^3/uL (0.0-0.2) Magnesium Level 1.8 mg/dL (1.8-2.4) Assessment and Plan Assessmemt and Plan Problems Medical Problems: (1) DKA (diabetic ketoacidoses) Status: Acute Comment Review of Relevant I have reviewed the following items jaleesa (where applicable) has been applied. Medications: Current Medications Medications (Trade) Dose Ordered Sig/Beverly Route PRN Reason Start Time Stop Time Status Last Admin Dose Admin Insulin Glargine (Lantus Syringe) 20 unit QHS SQ 01/31/20 21:00 01/31/20 21:09 Levetiracetam (Keppra) 500 mg BID PO 01/31/20 09:30 02/01/20 08:13 Potassium Chloride (Klor-Con) 20 meq [id number] PO 01/31/20 10:00 02/01/20 08:13 Insulin Human Lispro (HumaLOG) 10 units TIDWMEALS SQ 01/31/20 12:00 02/01/20 08:14 Insulin Glargine (Lantus Syringe) 10 unit 1X ONCE SQ 01/31/20 09:45 01/31/20 09:46 DC 01/31/20 10:15 Potassium Phos/ Sodium Phos (Phos-Nak) 1 pkt DAILY PO 01/31/20 14:15 02/01/20 08:13 Magnesium Oxide (Magnesium Oxide) 400 mg BID PO 01/31/20 14:15 02/01/20 08:14 Justifications for Admission General Conditions Poss tachycardia?: Yes Justification for admission: Patient has tachycardia (> 100 beats per minute) which is not readily corrected by appropriate treatment within 12 to 24 hours. Elevated Lactate?: Yes Justification for admission: Patient has tachycardia (> 100 beats per minute) or hypotension (SBP < 90 mm Hg) leading to inadequate systemic perfusion as indicated by lactate of greater or equal to 2.5 mmol/L. Poss Metaboilic Acidosis?: Yes Justification for admission: Patient has tachycardia (> 100 beats per minute) or hypotension (SBP < 90 mm Hg) leading to inadequate systemic perfusion as indicated by metabolic acidosis with arterial pH of less than 7.35. Other Justification JERONIMO BOWENS MD Feb 01, 2020 08:32
--- NOTE | 2020-02-01 08:53 | PDOC3 ---
Discharge Summary Visit Information Date of Admission: Jan 30, 2020 Date of Discharge: Feb 01, 2020 Admitting Diagnosis: DKA Final Diagnosis Problems Medical Problems: (1) DKA (diabetic ketoacidoses) Status: Acute Brief Hospital Course Allergies Allergies Coded Allergies Type Severity Reaction Last Updated Verified Sulfa (Sulfonamide Antibiotics) Allergy Intermediate Hives 10/24/15 Yes Vital Signs Vital Signs Date Time Temp Pulse Resp B/P (MAP) Pulse Ox O2 Delivery O2 Flow Rate FiO2 02/01/20 07:34 Room Air 02/01/20 07:00 98.9 88 16 124/77 (93) 100 98.9 Lab Results Laboratory Tests Test 01/30/20 16:40 01/30/20 16:53 01/30/20 17:40 01/30/20 20:15 O2 Saturation 97 % (92-99) Arterial Blood pH 6.72 (7.35-7.45) Arterial Blood pCO2 at Patient Temp < 15 mmHg (35-46) Arterial Blood pO2 at Patient Temp 130 mmHg (85-108) Arterial Blood HCO3 2 mmol/L (21-28) Arterial Blood Base Excess -34 mmol/L (-3-3) FiO2 Room air White Blood Count 27.7 x10^3/uL (4.0-11.0) Red Blood Count 4.32 x10^6/uL (4.30-5.70) Hemoglobin 12.1 g/dL (13.0-17.5) Hematocrit 42.8 % (39.0-53.0) Mean Corpuscular Volume 99 fL (79-100) Mean Corpuscular Hemoglobin 28 pg (25-35) Mean Corpuscular Hemoglobin Concent 28 g/dL (31-37) Red Cell Distribution Width 14.8 % (11.5-14.5) Platelet Count 288 x10^3/uL (140-400) Neutrophils (%) (Auto) 76 % (31-73) Lymphocytes (%) (Auto) 15 % (24-48) Monocytes (%) (Auto) 9 % (0-9) Eosinophils (%) (Auto) 0 % (0-3) Basophils (%) (Auto) 0 % (0-3) Neutrophils # (Auto) 21.2 x10^3/uL (1.8-7.7) Lymphocytes # (Auto) 4.0 x10^3/uL (1.0-4.8) Monocytes # (Auto) 2.4 x10^3/uL (0.0-1.1) Eosinophils # (Auto) 0.0 x10^3/uL (0.0-0.7) Basophils # (Auto) 0.1 x10^3/uL (0.0-0.2) Segmented Neutrophils % 76 % (35-66) Band Neutrophils % 5 % (0-9) Lymphocytes % 14 % (24-48) Monocytes % 5 % (0-10) Toxic Granulation Slight Toxic Vacuolation Slight Platelet Estimate Adequate (ADEQUATE) Anisocytosis Slight Sodium Level 126 mmol/L (136-145) 130 mmol/L (136-145) Potassium Level 6.4 mmol/L (3.5-5.1) 5.7 mmol/L (3.5-5.1) Chloride Level 91 mmol/L (98-107) 96 mmol/L (98-107) Carbon Dioxide Level < 5 mmol/L (21-32) < 5 mmol/L (21-32) Anion Gap (6-14) (6-14) Blood Urea Nitrogen 41 mg/dL (8-26) 41 mg/dL (8-26) Creatinine 1.7 mg/dL (0.7-1.3) 1.6 mg/dL (0.7-1.3) Estimated GFR (Cockcroft-Gault) 45.8 49.2 BUN/Creatinine Ratio 24 (6-20) Glucose Level 960 mg/dL (70-99) 865 mg/dL (70-99) Calcium Level 8.5 mg/dL (8.5-10.1) 8.3 mg/dL (8.5-10.1) Magnesium Level 2.8 mg/dL (1.8-2.4) 2.8 mg/dL (1.8-2.4) Total Bilirubin 0.4 mg/dL (0.2-1.0) Aspartate Amino Transf (AST/SGOT) 20 U/L (15-37) Alanine Aminotransferase (ALT/SGPT) 30 U/L (16-63) Alkaline Phosphatase 166 U/L (46-116) Total Protein 5.9 g/dL (6.4-8.2) Albumin 2.8 g/dL (3.4-5.0) Albumin/Globulin Ratio 0.9 (1.0-1.7) Urine Collection Type Unknown Urine Color Yellow Urine Clarity Clear Urine pH 5.0 (<5.0-8.0) Urine Specific Anthony 1.020 (1.000-1.030) Urine Protein 30 mg/dL (NEG-TRACE) Urine Glucose (UA) >=1000 mg/dL (NEG) Urine Ketones (Stick) >=80 mg/dL (NEG) Urine Blood Large (NEG) Urine Nitrite Negative (NEG) Urine Bilirubin Negative (NEG) Urine Urobilinogen Dipstick 0.2 mg/dL (0.2 mg/dL) Urine Leukocyte Esterase Negative (NEG) Urine RBC 20-40 /HPF (0-2) Urine WBC Occ /HPF (0-4) Urine Bacteria 0 /HPF (0-FEW) Urine Granular Casts Few /HPF Phosphorus Level 7.4 mg/dL (2.6-4.7) Test 01/30/20 22:20 01/30/20 23:23 01/30/20 23:54 01/31/20 00:42 Glucose Level 642 mg/dL (70-99) 429 mg/dL (70-99) O2 Saturation % (92-99) Arterial Blood pH 6.98 (7.35-7.45) Arterial Blood pCO2 at Patient Temp 18 mmHg (35-46) Arterial Blood pO2 at Patient Temp mmHg (85-108) Arterial Blood HCO3 4 mmol/L (21-28) Arterial Blood Base Excess -26 mmol/L (-3-3) FiO2 21 Glucose (Fingerstick) 438 mg/dL (70-99) Sodium Level 139 mmol/L (136-145) Potassium Level 3.6 mmol/L (3.5-5.1) Chloride Level 105 mmol/L (98-107) Carbon Dioxide Level 6 mmol/L (21-32) Anion Gap 28 (6-14) Blood Urea Nitrogen 37 mg/dL (8-26) Creatinine 1.3 mg/dL (0.7-1.3) Estimated GFR (Cockcroft-Gault) 62.5 Calcium Level 7.9 mg/dL (8.5-10.1) Phosphorus Level 1.5 mg/dL (2.6-4.7) Magnesium Level 2.2 mg/dL (1.8-2.4) Test 01/31/20 00:58 01/31/20 02:09 01/31/20 03:14 01/31/20 04:13 Glucose (Fingerstick) 352 mg/dL (70-99) 293 mg/dL (70-99) 265 mg/dL (70-99) 228 mg/dL (70-99) Test 01/31/20 05:00 01/31/20 05:20 01/31/20 06:20 01/31/20 07:24 White Blood Count 21.6 x10^3/uL (4.0-11.0) Red Blood Count 3.99 x10^6/uL (4.30-5.70) Hemoglobin 11.3 g/dL (13.0-17.5) Hematocrit 34.0 % (39.0-53.0) Mean Corpuscular Volume 85 fL (79-100) Mean Corpuscular Hemoglobin 28 pg (25-35) Mean Corpuscular Hemoglobin Concent 33 g/dL (31-37) Red Cell Distribution Width 13.5 % (11.5-14.5) Platelet Count 215 x10^3/uL (140-400) Neutrophils (%) (Auto) 77 % (31-73) Lymphocytes (%) (Auto) 12 % (24-48) Monocytes (%) (Auto) 11 % (0-9) Eosinophils (%) (Auto) 0 % (0-3) Basophils (%) (Auto) 0 % (0-3) Neutrophils # (Auto) 16.6 x10^3/uL (1.8-7.7) Lymphocytes # (Auto) 2.7 x10^3/uL (1.0-4.8) Monocytes # (Auto) 2.3 x10^3/uL (0.0-1.1) Eosinophils # (Auto) 0.0 x10^3/uL (0.0-0.7) Basophils # (Auto) 0.0 x10^3/uL (0.0-0.2) Sodium Level 141 mmol/L (136-145) Potassium Level 3.8 mmol/L (3.5-5.1) Chloride Level 110 mmol/L (98-107) Carbon Dioxide Level 15 mmol/L (21-32) Anion Gap 16 (6-14) Blood Urea Nitrogen 30 mg/dL (8-26) Creatinine 1.2 mg/dL (0.7-1.3) Estimated GFR (Cockcroft-Gault) 68.5 Glucose Level 175 mg/dL (70-99) Calcium Level 8.1 mg/dL (8.5-10.1) Phosphorus Level 0.8 mg/dL (2.6-4.7) Magnesium Level 1.9 mg/dL (1.8-2.4) Glucose (Fingerstick) 159 mg/dL (70-99) 128 mg/dL (70-99) 130 mg/dL (70-99) Test 01/31/20 08:30 01/31/20 08:50 01/31/20 10:12 01/31/20 11:19 O2 Saturation 97 % (92-99) Arterial Blood pH 7.36 (7.35-7.45) Arterial Blood pCO2 at Patient Temp 34 mmHg (35-46) Arterial Blood pO2 at Patient Temp 87 mmHg (85-108) Arterial Blood HCO3 19 mmol/L (21-28) Arterial Blood Base Excess -6 mmol/L (-3-3) FiO2 21 Glucose (Fingerstick) 141 mg/dL (70-99) 99 mg/dL (70-99) 165 mg/dL (70-99) Sodium Level 139 mmol/L (136-145) Potassium Level 3.9 mmol/L (3.5-5.1) Chloride Level 109 mmol/L (98-107) Carbon Dioxide Level 22 mmol/L (21-32) Anion Gap 8 (6-14) Blood Urea Nitrogen 28 mg/dL (8-26) Creatinine 1.1 mg/dL (0.7-1.3) Estimated GFR (Cockcroft-Gault) 75.7 Glucose Level 156 mg/dL (70-99) Calcium Level 7.7 mg/dL (8.5-10.1) Phosphorus Level 1.6 mg/dL (2.6-4.7) Magnesium Level 1.7 mg/dL (1.8-2.4) Test 01/31/20 12:45 01/31/20 13:48 01/31/20 17:29 01/31/20 21:03 Glucose (Fingerstick) 176 mg/dL (70-99) 287 mg/dL (70-99) 268 mg/dL (70-99) Sodium Level 138 mmol/L (136-145) Potassium Level 4.1 mmol/L (3.5-5.1) Chloride Level 106 mmol/L (98-107) Carbon Dioxide Level 20 mmol/L (21-32) Anion Gap 12 (6-14) Blood Urea Nitrogen 23 mg/dL (8-26) Creatinine 0.9 mg/dL (0.7-1.3) Estimated GFR (Cockcroft-Gault) 95.5 Glucose Level 220 mg/dL (70-99) Calcium Level 7.5 mg/dL (8.5-10.1) Phosphorus Level 4.2 mg/dL (2.6-4.7) Test 02/01/20 05:15 White Blood Count 16.5 x10^3/uL (4.0-11.0) Red Blood Count 3.89 x10^6/uL (4.30-5.70) Hemoglobin 11.2 g/dL (13.0-17.5) Hematocrit 33.1 % (39.0-53.0) Mean Corpuscular Volume 85 fL (79-100) Mean Corpuscular Hemoglobin 29 pg (25-35) Mean Corpuscular Hemoglobin Concent 34 g/dL (31-37) Red Cell Distribution Width 14.4 % (11.5-14.5) Platelet Count 186 x10^3/uL (140-400) Neutrophils (%) (Auto) 79 % (31-73) Lymphocytes (%) (Auto) 14 % (24-48) Monocytes (%) (Auto) 7 % (0-9) Eosinophils (%) (Auto) 0 % (0-3) Basophils (%) (Auto) 0 % (0-3) Neutrophils # (Auto) 13.0 x10^3/uL (1.8-7.7) Lymphocytes # (Auto) 2.3 x10^3/uL (1.0-4.8) Monocytes # (Auto) 1.2 x10^3/uL (0.0-1.1) Eosinophils # (Auto) 0.0 x10^3/uL (0.0-0.7) Basophils # (Auto) 0.0 x10^3/uL (0.0-0.2) Sodium Level 140 mmol/L (136-145) Potassium Level 3.8 mmol/L (3.5-5.1) Chloride Level 107 mmol/L (98-107) Carbon Dioxide Level 28 mmol/L (21-32) Anion Gap 5 (6-14) Blood Urea Nitrogen 12 mg/dL (8-26) Creatinine 0.9 mg/dL (0.7-1.3) Estimated GFR (Cockcroft-Gault) 95.5 Glucose Level 251 mg/dL (70-99) Calcium Level 7.6 mg/dL (8.5-10.1) Magnesium Level 1.8 mg/dL (1.8-2.4) Laboratory Tests Test 01/31/20 10:12 01/31/20 11:19 01/31/20 12:45 01/31/20 13:48 Glucose (Fingerstick) 99 mg/dL (70-99) 165 mg/dL (70-99) 176 mg/dL (70-99) Sodium Level 138 mmol/L (136-145) Potassium Level 4.1 mmol/L (3.5-5.1) Chloride Level 106 mmol/L (98-107) Carbon Dioxide Level 20 mmol/L (21-32) Anion Gap 12 (6-14) Blood Urea Nitrogen 23 mg/dL (8-26) Creatinine 0.9 mg/dL (0.7-1.3) Estimated GFR (Cockcroft-Gault) 95.5 Glucose Level 220 mg/dL (70-99) Calcium Level 7.5 mg/dL (8.5-10.1) Phosphorus Level 4.2 mg/dL (2.6-4.7) Test 01/31/20 17:29 01/31/20 21:03 02/01/20 05:15 Glucose (Fingerstick) 287 mg/dL (70-99) 268 mg/dL (70-99) White Blood Count 16.5 x10^3/uL (4.0-11.0) Red Blood Count 3.89 x10^6/uL (4.30-5.70) Hemoglobin 11.2 g/dL (13.0-17.5) Hematocrit 33.1 % (39.0-53.0) Mean Corpuscular Volume 85 fL (79-100) Mean Corpuscular Hemoglobin 29 pg (25-35) Mean Corpuscular Hemoglobin Concent 34 g/dL (31-37) Red Cell Distribution Width 14.4 % (11.5-14.5) Platelet Count 186 x10^3/uL (140-400) Neutrophils (%) (Auto) 79 % (31-73) Lymphocytes (%) (Auto) 14 % (24-48) Monocytes (%) (Auto) 7 % (0-9) Eosinophils (%) (Auto) 0 % (0-3) Basophils (%) (Auto) 0 % (0-3) Neutrophils # (Auto) 13.0 x10^3/uL (1.8-7.7) Lymphocytes # (Auto) 2.3 x10^3/uL (1.0-4.8) Monocytes # (Auto) 1.2 x10^3/uL (0.0-1.1) Eosinophils # (Auto) 0.0 x10^3/uL (0.0-0.7) Basophils # (Auto) 0.0 x10^3/uL (0.0-0.2) Sodium Level 140 mmol/L (136-145) Potassium Level 3.8 mmol/L (3.5-5.1) Chloride Level 107 mmol/L (98-107) Carbon Dioxide Level 28 mmol/L (21-32) Anion Gap 5 (6-14) Blood Urea Nitrogen 12 mg/dL (8-26) Creatinine 0.9 mg/dL (0.7-1.3) Estimated GFR (Cockcroft-Gault) 95.5 Glucose Level 251 mg/dL (70-99) Calcium Level 7.6 mg/dL (8.5-10.1) Magnesium Level 1.8 mg/dL (1.8-2.4) Brief Hospital Course Mr Camacho is a 34 yo M with PMHx Type 1 DM, methamphetamine abuse who p/w ABD pain and N/V who came to the ED with elevated blood sugars. Patient seen and examined by me in the ED. Patient was lethargic by this time and unable to provide and sensible history. He was able to follow commands. Patient is not aggressive or combative. WBC elevated, pH 6.8. Admitted to ICU in DKA. 01/30: Phos 0.8 today. Abdominal pain resolved. Asking for diet. Gap closed. Afebrile. WBC down to 16.5. Glucose still in the 200s despite large coverage. eating well. ready for discharge home. Educated on insulin dosing Problem list: DKA (diabetic ketoacidoses) - gap closed MARQUIS - resolved Hypophosphatemia - replaced Hyponatremia - Leukocytosis - likely DKA related. No clear infectious source Acute metabolic acidosis - resolved Acute encephalopathy - likely metabolic, DKA related, resolved History of Methamphetamine abuse - counseled on cessation Ok to d/c home Greater than 30 minutes spent on d/c Discharge Information Condition at Discharge: Improved Follow Up: Weeks Disposition/Orders: D/C to Home Scheduled Insulin Glargine,Hum.rec.anlog (Lantus) 100 Unit/1 Ml Vial, 20 UNIT SQ QHS for DIABETES for 30 Days, #2 Prescribed by: FENG PRYOR MD on 08/04/191444 Last Action: Continued on 01/31/20910 by JERONIMO BOWENS MD Insulin Lispro (Humalog) 100 Unit/1 Ml Insuln.pen, 10 UNITS SQ TIDWMEALS for DIABETES for 30 Days, #2 Prescribed by: FENG PRYOR MD on 08/04/191444 Last Action: Converted on 01/31/20910 by JERONIMO BOWENS MD Levetiracetam (Keppra) 500 Mg Tablet, 500 MG PO BID for seizures, (Reported) Entered as Reported by: MELISSA MIGUEL on 10/20/19916 Last Action: Continued on 01/31/20910 by JERONIMO BOWENS MD Potassium Chloride (Klor-Con M20) 20 Meq Tab.er.prt, 20 MEQ PO DAILYWBKFT for SUPPLEMENT for 10 Days, #10 Prescribed by: FENG PRYOR MD on 08/04/191444 Last Action: Continued on 01/31/20910 by JERONIMO BOWENS MD Justicifation of Admission Dx: Justifications for Admission: Justification of Admission Dx: Yes Stroke - Ischemic: Stroke-Ischemic Acute Hemorrhagic Stroke: Acute Hemorrhagic Stroke DKA: JERONIMO GARCIA MD Feb 01, 2020 08:53
--- NOTE | 2020-02-01 10:25 | NUR ---
Discharge order given by Dr. Warren, paperwork signed by patient. Patient education provided by both Dr. Warren and this RN. Patient picked up by Brenda, patient's friend. IVs and schmidt removed prior to discharge. 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 Patient discharged at 1021.
[2020-02-01] MEDS ORDERED: INSULIN LISPRO 300 UNITS/3 ML VIAL. SQ SCH (12:00)
== END 2020-02-01 10:21 | disposition home or self-care (01) | DRG 682 ==
LOC: ER 16:39 → 1 WEST ICU 18:25
PROVIDERS: ADMIT Internal Medicine; ATTEND Internal Medicine
DX: N17.0 Acute kidney failure with tubular necrosis (principal); E10.10 Type 1 diabetes mellitus with ketoacidosis without coma; E43 Unspecified severe protein-calorie malnutrition; G93.41 Metabolic encephalopathy; E87.1 Hypo-osmolality and hyponatremia; Z68.1 Body mass index [BMI] 19.9 or less, adult; D72.829 Elevated white blood cell count, unspecified; E83.39 Other disorders of phosphorus metabolism; F12.90 Cannabis use, unspecified, uncomplicated; E86.9 Volume depletion, unspecified; E87.5 Hyperkalemia; F15.10 Other stimulant abuse, uncomplicated; Z79.4 Long term (current) use of insulin; Z87.891 Personal history of nicotine dependence; Z88.2 Allergy status to sulfonamides; Z79.899 Other long term (current) drug therapy; Z71.51 Drug abuse counseling and surveillance of drug abuser
CPT/HCPCS: 36415; 36600; 80048; 80053; 81001; 82805; 82947; 82962; 83735; 84100; 85007; 85025; 93005; 96361; 96365; 96375; J0696; J1815; J3480; J3490; J7030; J7042; J7050; 99291-25; G0378